=== PATIENT | male | born 1945 | race Caucasian/White ===

== ENCOUNTER → 2016-12-18 | Outpatient (CLI) | payer MEDICARE ==
--- NOTE | 2016-12-18 12:15 | NM ---
EXAMINATION TYPE: NM stress cardiolite complete DATE OF EXAM: 12/18/2016 11:27 AM COMPARISON: NONE HISTORY: Abnormal ECG. TECHNIQUE: After the intravenous administration of 10.5 mCi Tc 99m Sestamibi - Rest images obtained 45 minutes post injection. The patient exercised using a MARY protocol and 1 minute prior to peak exercise was injected with 27.3 mCi Tc 99m Sestamibi - Stress images obtained 10 minutes post injecti on. FINDINGS: There is left ventricular dilatation. There is reasonable uptake of radiopharmaceutical by the left ventricle. There is a fixed apical defect. There is no convincing inducible ischemic change. There is global hypokinesia and ejection fraction is only 33%. IMPRESSION: 1. LEFT VENTRICULAR DILATATION. 2. FIXED DEFECT IN THE APEX. 3. GLOBALLY DECREASED EJECTION FRACTION.
--- NOTE | 2016-12-18 12:17 | EST ---
DATE OF SERVICE: 12/18/2016 AGE: 71Y SEX: M HT: 66" WT: 204 lbs. Protocol Gildardo: X Other: Cardiolite Stage: I Dur. of Exercise: 4:20 *Heart Rate Blood Pressure *Rest: 76 Rest: 143/90 * *Max. Achieved: 128 Maximum BP: 165/85 85% PMHR: 127 100% PMHR: 149 *METS: 4.8 INDICATIONS: Chest pain. MEDICATIONS: Patient was exercised for a total period of 4 minutes and 20 seconds. Peak heart rate of 128 was achieved. Maximum blood pressure of 165/85 mmHg was noted. Resting EKG shows normal sinus rhythm with normal UT interval and QRS duration and normal ST-T waves. No ST segment depression suggestive of ischemia is noted. ( ) complained of any anginal pain during the test. FINAL IMPRESSION: 1. This exercise test is not suggestive of ischemia. 2. The patient's exercise tolerance is below average. 3. The results of the nuclear study will follow.
== END | disposition home or self-care (01) ==
LOC: RADNMMAIN 08:57
PROVIDERS: ATTEND Family Medicine
DX: I51.7 Cardiomegaly (principal); R94.31 Abnormal electrocardiogram [ECG] [EKG]
CPT/HCPCS: 93017; 78452; A9500

== ENCOUNTER → 2016-12-31 | Outpatient (CLI) | payer MEDICARE ==
[2016-12-31 11:27] LABS: CH 30.6; CHCM 34.1; HCT 42.6 % (39.0-53.0); HGB 14.5 gm/dL (13.0-17.5); MCH 30.7 pg (25.0-35.0); MCV 90.2 fL (80.0-100.0); Mean Platelet Volume 6.9; RBC 4.72 m/uL (4.30-5.90); RDW 12.3 % (11.5-15.5); WBC 5.8 k/uL (3.8-10.6)
[2016-12-31 11:53] LABS: Anion Gap 8 mmol/L; Blood Urea Nitrogen 20 mg/dL (9-20); Carbon Dioxide 28 mmol/L (22-30); Chloride 106 mmol/L (98-107); Non-African American GFR(MDRD) >60 (>60 ml/min/1.73 sqM); Potassium 4.7 mmol/L (3.5-5.1); Sodium 142 mmol/L (137-145)
== END ==
LOC: LABPAT 10:52
PROVIDERS: ATTEND Internal Medicine Interventional Cardiology
DX: I25.10 Atherosclerotic heart disease of native coronary artery without angina pectoris (principal)
CPT/HCPCS: 80051; 82565; 84520; 85027

== ENCOUNTER 2017-01-13 07:50 | Day surgery (SDC) | payer MEDICARE ==
[2017-01-08 16:12] VITALS: BMI 33.6
[~2017-01-13 07:50] MED LIST: ALPRAZolam 0.25 MG TAB PO PRN; ASPIRIN 325 MG TAB PO ONE; SODIUM CHLORIDE 0.9% 1,000 ML in EMPTY BAG 1 BAG IV ONE
[2017-01-13 08:07] VITALS: RESP 16; TEMP 98.1
[2017-01-13] MEDS ORDERED: SODIUM CHLORIDE 0.9% 1,000 ML IV ONE (08:12)
[2017-01-13] MEDS ORDERED: MIDAZOLAM 2 MG/2 ML VIAL IVP ONE (10:13)
[2017-01-13] MEDS ORDERED: LIDOCAINE 2% INJ 20 MG/ML SQ ONE ×2 (10:14)
[2017-01-13] MEDS: VERAPAMIL SYRINGE (5 MG/10 ML) INTRAARTER ONE ×2 (10:15→10:30)
[2017-01-13] MEDS ORDERED: IOHEXOL 350 MG/ML 125ML BOTTLE INJ ONE ×2 (10:31)
[2017-01-13] MEDS ORDERED: RX INFO: IV CONTRAST WAS GIVEN 1 EACH MISC MISCELLANE PRN (10:36)
[2017-01-13] MEDS ORDERED: SODIUM CHLORIDE 0.9% 1,000 ML IV SCH (10:45)
[2017-01-13 12:23] VITALS: PULSE 62
--- NOTE | 2017-01-13 12:49 | LTR ---
January 13, 2017 RE: Surya Byers Dear Manuel: Mr. Surya Byers underwent a heart catheterization which showed mild nonobstructive coronary artery disease with severely impaired LV function and ejection fraction of only 35%. I would maximize his medical treatment and repeat the echocardiogram to see if there is any improvement in the LV function down the line. Thank you for allowing me to participate in his care and please do not hesitate to call if you have any questions or concerns. Sincerely, QUETA CORDERO MD
--- NOTE | 2017-01-13 12:57 | CC ---
DATE OF SERVICE: 01/13/2017 PERFORMING PHYSICIAN: Gavin Jerome MD, rn relief charge. PROCEDURE PERFORMED: 1. Selective right and left coronary angiogram. 2. Left heart catheterization. 3. Left ventriculography. INDICATION: This is a pleasant 71-year-old male patient who was experiencing chest discomfort and underwent myocardial perfusion imaging. Stress test showed global ischemia with cardiomyopathy. He was brought today to undergo a heart catheterization. APPROACH: Right radial artery. COMPLICATIONS: None. LEVEL OF SEDATION: Moderate with a sedation length of about 30 minutes. PROCEDURE DESCRIPTION: After obtaining an informed consent, the patient was brought to the cardiac confectionery laboratory manager. The right radial artery was cannulated using micropuncture technique. The micropuncture wire passed easily, then I placed 6 [place] sheath in the right radial artery. Subsequently, I did selective right and left coronary angiogram using JR4 and JL3.5 catheters. After that, I did left heart catheterization and LV gram using a 6 [place] pigtail catheter. The procedure was completed without any complication. Please note that I gave the patient 2 mg of verapamil IA and 3000 heparin IV after I placed the sheath in the right radial artery. SELECTIVE CORONARY ANGIOGRAM: 1. The right coronary artery is a medium caliber vessel and it is a nondominant vessel. It is angiographically normal. 2. The left main is angiographically normal. It bifurcates into the left circumflex and left anterior descending artery. 3. The left circumflex is a large-caliber vessel and it is a dominant vessel. The proximal left circumflex is angiographically normal. The mid circumflex has disease in the range of 30% only. The left circumflex distally is normal and bifurcates into PDA and PLV branches; both are angiographically normal. 4. The left anterior descending artery, the proximal LAD appeared to have mild disease only. The mid LAD appeared to be angiographically normal as well and ( ) appeared to be angiographically normal. HEMODYNAMICS: The left ventricular end-diastolic pressure was 18 mmHg and no gradient was identified across the aortic valve. Left ventriculography was performed in the [place] projection and using a power injection. The left ventricular systolic function is impaired with an ejection fraction of 35% with global hypokinesia and dilated left ventricle. CONCLUSION: 1. Mild nonobstructive coronary artery disease. 2. Severe cardiomyopathy with an ejection fraction of 35%. Postprocedure management will be: 1. Maximize medical treatment. 2. Follow up with the patient.
[2017-01-13 15:40] VITALS: BP 129/75
== END 2017-01-13 16:00 | disposition home or self-care (01) ==
LOC: CATHCVL 07:50
PROVIDERS: ATTEND Internal Medicine Interventional Cardiology
DX: I25.110 Atherosclerotic heart disease of native coronary artery with unstable angina pectoris (principal); I42.9 Cardiomyopathy, unspecified; R94.39 Abnormal result of other cardiovascular function study; I10 Essential (primary) hypertension; Z87.891 Personal history of nicotine dependence; Z79.82 Long term (current) use of aspirin; Z79.899 Other long term (current) drug therapy
CPT/HCPCS: 99152; 93458; C1894; J2001; J2250; J1644; Q9967

== ENCOUNTER → 2017-06-15 | Outpatient (CLI) | payer MEDICARE ==
--- NOTE | 2017-06-15 09:57 | US ---
EXAMINATION TYPE: US abdomen complete DATE OF EXAM: 06/15/2017 COMPARISON: CT abdomen and pelvis November 16, 2014 CLINICAL HISTORY: R19.4change in bowel habit R10.84 Abdominal Pain. Intermittent abdomen pain and rea nge in bowel habits x couple weeks EXAM MEASUREMENTS: Liver Length: 14.7 cm Gallbladder Wall: 0.2 cm CBD: 0.4 cm Spleen: 10.0 cm Right Kidney: 9.7 x 4.9 x 5.4 cm Left Kidney: 12.0 x 5.2 x 5.6 cm Pancreas: visualized portions wnl, limited by overlying midline bowel gas Liver: somewhat heterogeneous, limited by rib shadowing Gallbladder: wnl Evidence for sonographic Woodard's sign: no CBD: wnl Spleen: visualized portions wnl, limited by rib shadowing and overlying bowel gas Right Kidney: no hydro or masses seen Left Kidney: no hydro or masses seen, appears larger than right kidney, 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 Evaluation for focal masses suboptimal due to the heterogen eity. The intrahepatic portion of the IVC and proximal abdominal aorta are within normal limits. Th ere is no evidence of cholelithiasis. Common bile duct is unremarkable. The visualized portions of the pancreas are homogenous. The spleen is unremarkable. Kidneys are symmetric and free of hydronep hrosis. No renal lesions are seen on images saved. There is some cortical thinning bilaterally felt present. IMPRESSION: Suboptimal study as detailed above. There is redemonstration of diffuse fatty infiltratio n of liver noted. No significant acute finding is seen to account for the patient's symptoms.
== END | disposition home or self-care (01) ==
LOC: RADUSWWP 07:56
PROVIDERS: ATTEND Family Medicine
DX: K76.0 Fatty (change of) liver, not elsewhere classified (principal); R19.4 Change in bowel habit
CPT/HCPCS: 76700

== ENCOUNTER 2017-11-13 15:16 | Emergency (ER) | payer MEDICARE ==
[2017-11-13 15:20] VITALS: BP 139/82; PULSE 75; RESP 20; TEMP 98.6
--- NOTE | 2017-11-13 16:52 | ED ---
General Adult HPI - General Chief complaint: Recheck/Abnormal Lab/Rx Stated complaint: poss hernia Time Seen by Provider: 11/13/17 16:34 Source: patient, family, RN notes reviewed Mode of arrival: ambulatory Limitations: no limitations - History of Present Illness Initial comments: Chief complaint and history of present illness a 72-year-old male here for complaint of a possible right inguinal hernia. Patient reports this morning when he got up and putting his belt on he felt a gaseous gurgly entity in the right inguinal canal. Throughout the day it went away. No pain. He does report in the last several days he did lift a heavy saw him put it in his son's truck but he can't remember hurting himself. He has had a umbilical hernia repaired in the past. - Related Data Home Medications Medication Instructions Recorded Confirmed Ascorbic Acid [Vitamin C] 1,000 mg PO DAILY 01/08/17 11/13/17 Aspirin [Adult Low Dose Aspirin EC] 81 mg PO DAILY 01/08/17 11/13/17 Calcium Carbonate [Calcium] 600 mg PO DAILY 01/08/17 11/13/17 Finasteride [Proscar] 5 mg PO DAILY 01/08/17 11/13/17 Levothyroxine Sodium [Synthroid] 150 mcg PO DAILY 01/08/17 11/13/17 Losartan [Cozaar] 25 mg PO DAILY 01/08/17 11/13/17 Multivitamins, Thera [Multivitamin 1 tab PO DAILY 01/08/17 11/13/17 (formulary)] Naproxen 500 mg PO DAILY 01/08/17 11/13/17 Omeprazole 20 mg PO DAILY 01/08/17 11/13/17 Timolol 0.5% Ophth Soln [Timoptic 1 drop RIGHT EYE DAILY 01/08/17 11/13/17 0.5% Ophth Soln] diphenhydrAMINE [Benadryl] 50 mg PO HS PRN 01/08/17 11/13/17 Metoprolol Tartrate [Lopressor] 12.5 mg PO BID 11/13/17 11/13/17 Spironolactone [Aldactone] 25 mg PO DAILY 11/13/17 11/13/17 Allergies Allergy/AdvReac Type Severity Reaction Status Date / Time No Known Allergies Allergy Verified 11/13/17 15:57 Review of Systems ROS Statement: Those systems with pertinent positive or pertinent negative responses have been documented in the HPI. Review of systems patient had no other complaints other than possible hernia which self reduced in the right inguinal region. Past medical problems significant GERD, hypertension, osteoarthritis, prostate disorder, thyroid disorder, kidney stone. Surgeries include umbilical hernia repair,. The patient's family history sister had breast cancer. Patient denies any ALLERGIES the patient quit smoking 40 years ago drinks alcohol rarely socially. No known ALLERGIES as noted above. ROS Other: All systems not noted in ROS Statement are negative. Past Medical History Past Medical History: GERD/Reflux, Hypertension, Osteoarthritis (OA), Prostate Disorder, Thyroid Disorder Additional Past Medical History / Comment(s): hx kidney stone History of Any Multi-Drug Resistant Organisms: None Reported Past Surgical History: Hernia Repair, Orthopedic Surgery Additional Past Surgical History / Comment(s): umbilical hernia repair, kidney stone lithotripsy, carpal tunnel rt wrist. rt cataract, orif rt leg Past Anesthesia/Blood Transfusion Reactions: No Reported Reaction Past Psychological History: No Psychological Hx Reported Smoking Status: Former smoker Past Alcohol Use History: None Reported Past Drug Use History: None Reported - Past Family History Mother Family Medical History: Cancer Brother(s) Family Medical History: Cancer General Exam - General Exam Comments Initial Comments: General: The patient is awake and alert, in no distress, and does not appear acutely ill. Here because of a possible right inguinal hernia. Vital signs shows temperature 98.6 pulse 75 respiratory rate 20 pulse ox 90% room air blood pressure 139/82 Eye: Pupils are equal, round and reactive to light, extra-ocular movements are intact ; there is normal conjunctiva bilaterally. No signs of icterus. Ears, nose, mouth and throat: There are moist mucous membranes and no oral lesions. Neck: Neck is supple no complaint of pain. Cardiovascular: There is a regular rate and rhythm. No murmur, rub or gallop is appreciated. Respiratory: Lungs are clear to auscultation no difficulty breathing. Gastrointestinal: Soft, non-distended, non-tender abdomen without masses or organomegaly noted. Examination of the right inguinal region with the patient coughing shows a hernia that protrudes and then reduces itself. No pain to palpation over the area. The hernia is not incarcerated or strangulated this time. We did discuss at length etiology of this hernia and what to do should it pops out again. He is to follow-up with family physician for reevaluation is needed. Or return emergency room if at comes out and is painful he can't reduce it as instructed. Limitations: no limitations Course Vital Signs 11/13/17 15:18 Temperature 98.6 F Pulse Rate 75 Respiratory 20 Rate Blood Pressure 139/82 O2 Sat by Pulse 98 Oximetry Medical Decision Making - Medical Decision Making Medical decision making; this is a 72-year-old male comes emergency room with what is a right inguinal hernia. Self reduced this morning on its own. The patient will follow-up with family physician. Advice given as to how to prevent it from coming out again and/or how to reduce it at home and if unable to reduce at home to come the emergency room. Disposition Clinical Impression: Reducible right inguinal hernia Disposition: HOME SELF-CARE Condition: Good Instructions: Inguinal Hernia (ED) Additional Instructions: Follow-up family physician. Apply pressure if the inguinal hernia comes out again. Follow advice given. If unable to reduce and is painful return emergency room. Referrals: Sixto Ascencio III, MD [Primary Care Provider] - 1-2 days Time of Disposition: 16:51
== END 2017-11-13 17:00 | disposition home or self-care (01) ==
LOC: EC 15:16
DX: K40.90 Unilateral inguinal hernia, without obstruction or gangrene, not specified as recurrent (principal); K21.9 Gastro-esophageal reflux disease without esophagitis; I10 Essential (primary) hypertension; M19.90 Unspecified osteoarthritis, unspecified site; N42.9 Disorder of prostate, unspecified; E07.9 Disorder of thyroid, unspecified; Z98.890 Other specified postprocedural states; Z87.891 Personal history of nicotine dependence; Z79.82 Long term (current) use of aspirin; Z79.1 Long term (current) use of non-steroidal anti-inflammatories (NSAID); Z79.899 Other long term (current) drug therapy
CPT/HCPCS: 99283

== ENCOUNTER 2017-12-01 17:30 | Emergency (ER) | payer MEDICARE ==
[2017-12-01 17:41] VITALS: RESP 18
[2017-12-01] MEDS ORDERED: HYDROcodone/APAP 10-325MG 1 EACH TAB PO ONE (18:16)
--- NOTE | 2017-12-01 18:21 | ED ---
Male Urogenital HPI - General Chief complaint: Urogenital Stated complaint: Groin pain Time Seen by Provider: 12/01/17 18:01 Source: patient Mode of arrival: ambulatory Limitations: no limitations - History of Present Illness Initial comments: 72-year-old male patient presents to the emergency department today for complaints of scrotal swelling. Patient states he did undergo a right inguinal hernia repair yesterday with Dr. Espinoza. States and he woke this morning he noticed that his scrotum was swollen. He states it is uncomfortable but does not report pain to the area. States that this morning he did seem to have difficulty starting and stopping his stream of urine however this seems to have resolved and he is now urinating without difficulty. Patient denies any hematuria, dysuria, urinary frequency, urinary urgency. States that he is having pain to his surgical site. He is taking norco which he states does not seem to help much. He is eating and drinking without difficulty. Denies any constipation or diarrhea. Patient denies any recent rash, fever, chills, shortness breath, chest pain, back pain, numbness, tingling, dizziness, weakness , headache, visual changes, or any other complaints. - Related Data Home Medications Medication Instructions Recorded Confirmed Ascorbic Acid [Vitamin C] 1,000 mg PO DAILY 01/08/17 12/01/17 Aspirin [Adult Low Dose Aspirin EC] 81 mg PO DAILY 01/08/17 12/01/17 Calcium Carbonate [Calcium] 600 mg PO DAILY 01/08/17 12/01/17 Finasteride [Proscar] 5 mg PO DAILY 01/08/17 12/01/17 Levothyroxine Sodium [Synthroid] 150 mcg PO DAILY 01/08/17 12/01/17 Losartan [Cozaar] 25 mg PO DAILY 01/08/17 12/01/17 Multivitamins, Thera [Multivitamin 1 tab PO DAILY 01/08/17 12/01/17 (formulary)] Naproxen 500 mg PO DAILY 01/08/17 12/01/17 Omeprazole 20 mg PO DAILY 01/08/17 12/01/17 Timolol 0.5% Ophth Soln [Timoptic 1 drop RIGHT EYE DAILY 01/08/17 12/01/17 0.5% Ophth Soln] diphenhydrAMINE [Benadryl] 50 mg PO HS PRN 01/08/17 12/01/17 Metoprolol Tartrate [Lopressor] 12.5 mg PO BID 11/13/17 12/01/17 Spironolactone [Aldactone] 25 mg PO DAILY 11/13/17 12/01/17 Gabapentin [Neurontin] 300 mg PO BID 12/01/17 12/01/17 HYDROcodone/APAP 5-325MG [[place] 2 tab PO Q4HR PRN 12/01/17 12/01/17 5-325] Previous Rx's Medication Instructions Recorded HYDROcodone/APAP 7.5-325MG [[place] 1 - 2 tab PO Q6HR PRN #12 tab 12/01/17 7.5-325] Allergies Allergy/AdvReac Type Severity Reaction Status Date / Time No Known Allergies Allergy Verified 12/01/17 18:00 Review of Systems ROS Statement: Those systems with pertinent positive or pertinent negative responses have been documented in the HPI. ROS Other: All systems not noted in ROS Statement are negative. Past Medical History Past Medical History: GERD/Reflux, Hypertension, Osteoarthritis (OA), Prostate Disorder, Thyroid Disorder Additional Past Medical History / Comment(s): hx kidney stone History of Any Multi-Drug Resistant Organisms: None Reported Past Surgical History: Hernia Repair, Orthopedic Surgery Additional Past Surgical History / Comment(s): umbilical hernia repair, kidney stone lithotripsy, carpal tunnel rt wrist. rt cataract, orif rt leg Past Anesthesia/Blood Transfusion Reactions: No Reported Reaction Past Psychological History: No Psychological Hx Reported Smoking Status: Former smoker Past Alcohol Use History: None Reported Past Drug Use History: None Reported - Past Family History Mother Family Medical History: Cancer Brother(s) Family Medical History: Cancer General Exam Limitations: no limitations General appearance: alert, in no apparent distress, other (This is a well- developed, well-nourished adult male patient in no acute distress. Vital signs upon presentation are temperature 98.4F, pulse 98, respirations 18, blood pressure 125/73, pulse ox 97% on room air.) Eye exam: Present: normal appearance, PERRL, EOMI. Absent: scleral icterus, conjunctival injection, periorbital swelling ENT exam: Present: normal exam, normal oropharynx, mucous membranes moist Respiratory exam: Present: normal lung sounds bilaterally. Absent: respiratory distress, wheezes, rales, rhonchi, stridor Cardiovascular Exam: Present: regular rate, normal rhythm, normal heart sounds. Absent: systolic murmur, diastolic murmur, rubs, gallop, clicks GI/Abdominal exam: Present: soft, tenderness (Tenderness surrounding the surgical site to the right inguinal region), normal bowel sounds. Absent: distended, guarding, rebound, rigid exam: Present: scrotal swelling, other (There is purplish scrotal discoloration surrounding the entirety of the scrotum and just above the penis.) . Absent: normal inspection, testicular tenderness Neurological exam: Present: alert, oriented X3, CN II-XII intact Psychiatric exam: Present: normal affect, normal mood Skin exam: Present: warm, dry, intact, normal color. Absent: rash Course Vital Signs 12/01/17 17:39 Temperature 98.4 F Pulse Rate 98 Respiratory 18 Rate Blood Pressure 125/73 O2 Sat by Pulse 97 Oximetry Medical Decision Making - Medical Decision Making 72-year-old male patient presented to the emergency department today for evaluation of scrotal swelling. Physical examination did reveal bilateral scrotal swelling with ecchymosis noted over the entire scrotum. Urinalysis was obtained and showed no acute process. Ultrasound was obtained and did show bilateral mild hydrocele and right varicocele. Did discuss findings with the patient. Did instruct him to follow up with urology as soon as possible. He is also complaining that his pain medication prescribed after surgery does not seem strong enough. We will give prescription for NOrco 7.5, he is instructed to take 1-2 depending on pain severity. He is instructed to call his surgeon or return here for any further needs. He is instructed to return here immediately for any new, worsening, or concerning symptoms. He verbalizes understanding and agrees with this plan. - Lab Data Lab Results 12/01/17 Range/Units 19:49 Urine Color Colorless Urine Appearance Clear (Clear) Urine pH 5.5 (5.0-8.0) Ur Specific [place] 1.003 (1.001-1.035) Urine Protein Negative (Negative) Urine Glucose (UA) Negative (Negative) Urine Ketones Negative (Negative) Urine Blood Negative (Negative) Urine Nitrite Negative (Negative) Urine Bilirubin Negative (Negative) Urine Urobilinogen <2.0 (<2.0) mg/dL Ur Leukocyte Esterase Negative (Negative) - Radiology Data Radiology results: report reviewed, image reviewed Ultrasound of the scrotum was obtained. Report was reviewed in its entirety. Impression by Dr. Acharya shows no testicular torsion or mass. Mild bilateral hydroceles. Bilateral scrotal skin thickening. Right varicocele. So left epididymal cyst measuring 0.3 x 0.5 cm. Disposition Clinical Impression: Varicocele, Hydrocele, bilateral Disposition: HOME SELF-CARE Condition: Good Instructions: Hydrocele (ED), Varicocele (ED) Additional Instructions: Take medications as directed. Follow-up with urology as soon as possible. Return here immediately for any new, worsening, or concerning symptoms. Prescriptions: HYDROcodone/APAP 7.5-325MG [[place] 7.5-325] 1 - 2 tab PO Q6HR PRN #12 tab PRN Reason: Pain Referrals: Sixto Ascencio III, MD [Primary Care Provider] - 1-2 days Roberto Ramon MD [STAFF PHYSICIAN] - 1-2 days Time of Disposition: 20:39
--- NOTE | 2017-12-01 19:28 | US ---
EXAMINATION TYPE: US scrotum with doppler. Grayscale and color Doppler Duplex imaging performed of t felicitas scrotum. DATE OF EXAM: 12/01/2017 COMPARISON: NONE CLINICAL HISTORY: Swelling/Pain. Edema right hernia surgery done 11/30/2017. EXAM MEASUREMENTS: TESTICLES: Right Testicle: 3.7 x 2.6 x 2.8 cm Left Testicle: 3.7 x 2.9 x 2.2 cm EPIDIDYMIS HEAD: Right Epididymis: 08 x 09 x 1.4cm Left Epididymis: 08 x 1.1 x 1.0 cm Doppler performed to assess for testicular vascularity; good bilateral color flow and waveforms are s een. There is no evidence of testicular torsion. Presence of hydroceles: Yes bilaterally. Presence of varicoceles: Yes right side. Bilateral hydroceles seen. Right varicocele. Left epididymal cyst measuring .3 x .5cm. Appears to be scrotal skin thickening right 1.8 cm and left 1.4cm. IMPRESSION: No testicular torsion or mass. Mild bilateral hydroceles. Bilateral scrotal skin thickeni ng.
[2017-12-01 20:31] LABS: Appearance,Urine Clear (Clear); Bilirubin,Urine Negative (Negative); Blood,Urine Negative (Negative); Color,Urine Colorless; Glucose,Urine (UA) Negative (Negative); Ketones,Urine Negative (Negative); Leukocyte Esterase,Urine Negative (Negative); Nitrite,Urine Negative (Negative); PH, Urine 5.5 (5.0-8.0); Protein,Urine Negative (Negative); Specific Gravity,Urine 1.003 (1.001-1.035); Urobilinogen,Urine <2.0 mg/dL (<2.0)
[2017-12-01 21:00] VITALS: BP 129/66; PULSE 89; TEMP 97.6
== END 2017-12-01 21:00 | disposition home or self-care (01) ==
LOC: EC 17:30
DX: N43.3 Hydrocele, unspecified (principal); I86.1 Scrotal varices; K21.9 Gastro-esophageal reflux disease without esophagitis; I10 Essential (primary) hypertension; E07.9 Disorder of thyroid, unspecified; N40.0 Benign prostatic hyperplasia without lower urinary tract symptoms; Z87.891 Personal history of nicotine dependence; Z98.890 Other specified postprocedural states; Z79.82 Long term (current) use of aspirin; Z79.899 Other long term (current) drug therapy
CPT/HCPCS: 76870; 81003; 93975; 99284

== ENCOUNTER → 2018-08-02 | Outpatient (CLI) | payer MEDICARE ==
--- NOTE | 2018-08-02 17:01 | US ---
EXAMINATION TYPE: US abdomen limited DATE OF EXAM: 08/02/2018 COMPARISON: NONE CLINICAL HISTORY: R10.9 ABD PAIN. last year pt had right inguinal hernia repair, new onset of pain at site, no known trauma/injury Scanned at the patient's area of concern. Strong shadowing seen probably related to post surgical ch anges. Just medial to this shadowing area peristalsing bowel is seen moving anterior to the abd wall. There is about a 1.2cm break in the abd wall seen. IMPRESSION: 1. Anterior abdominal wall diastases may be present. There is some posterior shadowing at site of the hernia repair. Adjacent is some bowel loops at the peritoneal level. Consider CT abdomen follow-up t o evaluate anterior abdominal wall hernia.
== END | disposition home or self-care (01) ==
LOC: RADUSWWP 06:51
PROVIDERS: ATTEND Family Medicine
DX: M62.08 Separation of muscle (nontraumatic), other site (principal); R10.9 Unspecified abdominal pain; Z98.890 Other specified postprocedural states
CPT/HCPCS: 76705

== ENCOUNTER → 2018-08-11 | Outpatient (CLI) | payer MEDICARE ==
[2018-08-11 14:31] LABS: Blood Urea Nitrogen 20 mg/dL (9-20)
--- NOTE | 2018-08-11 16:59 | CT ---
EXAMINATION TYPE: CT abdomen pelvis w con DATE OF EXAM: 08/11/2018 COMPARISON: Prior CT abdomen pelvis dated 11/16/2014, limited abdomen ultrasound 08/02/2018 HISTORY: Right lower quadrant abdominal pain x6 weeks. CT DLP: 1510.4 mGycm Automated exposure control for dose reduction was used. TECHNIQUE: Helical acquisition of images from the lung bases through the pelvis have been completed. CONTRAST: Performed with Oral Contrast and with IV Contrast, patient injected with 100ml mL of Isovue M300. FINDINGS: There is no evident recurrent inguinal hernia. Some minimal thickening of the soft tissues in the right groin may be due to postop change. LUNG BASES: No significant abnormality is appreciated. AORTA: No significant abnormality is appreciated. LIVER/GB: No significant abnormality is appreciated. PANCREAS: No significant abnormality is seen. SPLEEN: No significant abnormality is seen. ADRENALS: No significant abnormality is seen. 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 REPRODUCTIVE ORGANS: No significant abnormality is seen BOWEL: Diverticular changes associated with the descending colon.. FREE AIR: No Free Air visible. ASCITES: None visible. PELVIC ADENOPATHY: None visualized. RETROPERITONEAL ADENOPATHY: No Retroperitoneal Adenopathy visible. URINARY BLADDER: No significant abnormality is seen. OSSEOUS STRUCTURES: Stable, degenerative disc changes are noted in the lumbar spine with facet arthr opathy. IMPRESSION: INTERVAL REPAIR OF PATIENT'S RIGHT INGUINAL HERNIA. NO OTHER SIGNIFICANT INTERVAL CHANGE.
== END | disposition home or self-care (01) ==
LOC: RADCTMAIN 13:45
PROVIDERS: ATTEND Surgery
DX: R10.31 Right lower quadrant pain (principal); Z98.890 Other specified postprocedural states
CPT/HCPCS: 82565; 84520; 74177; 36415; Q9967

== ENCOUNTER 2018-09-18 12:22 | Emergency (ER) | payer MEDICARE ==
[2018-09-18 12:35] VITALS: TEMP 98.4
[2018-09-18] MEDS ORDERED: SODIUM CHLORIDE 0.9% 500 ML 500 ML IV STA (12:41)
--- NOTE | 2018-09-18 12:45 | ED ---
General Adult HPI - General Chief complaint: Abdominal Pain Stated complaint: ABDOMINAL PAIN, DIARRHEA Time Seen by Provider: 09/18/18 12:25 Source: patient, RN notes reviewed Mode of arrival: ambulatory Limitations: no limitations - History of Present Illness Initial comments: This a 73-year-old male presents emergency Department complaining of some right upper quadrant abdominal tenderness over the last few days. Patient states the pain is crampy in nature and lasts about 10-15 seconds and then dissipates. Patient states it continues to recur over the last couple of days but today he has an underlying dull ache then on top of that has the crampy tenderness or tenderness 15 seconds. Patient states been eating and drinking fine. Patient states there's been no nausea vomiting or diarrhea. Patient states he took Pepto-Bismol didn't seem to help. Patient denies any chest pain difficulty breathing shortness of breath or palpitations. - Related Data Home Medications Medication Instructions Recorded Confirmed Ascorbic Acid [Vitamin C] 1,000 mg PO DAILY 01/08/17 09/18/18 Aspirin [Adult Low Dose Aspirin EC] 81 mg PO DAILY 01/08/17 09/18/18 Calcium Carbonate [Calcium] 600 mg PO DAILY 01/08/17 09/18/18 Finasteride [Proscar] 5 mg PO DAILY 01/08/17 09/18/18 Levothyroxine Sodium [Synthroid] 150 mcg PO MOTUWETHFR 01/08/17 09/18/18 Losartan [Cozaar] 25 mg PO DAILY 01/08/17 09/18/18 Multivitamins, Thera [Multivitamin 1 tab PO DAILY 01/08/17 09/18/18 (formulary)] Naproxen 500 mg PO DAILY 01/08/17 09/18/18 Omeprazole 20 mg PO DAILY 01/08/17 09/18/18 Timolol 0.5% Ophth Soln [Timoptic 1 drop BOTH EYES DAILY 01/08/17 09/18/18 0.5% Ophth Soln] Metoprolol Tartrate [Lopressor] 12.5 mg PO BID 11/13/17 09/18/18 Atorvastatin [Lipitor] 10 mg PO HS 09/18/18 09/18/18 Levothyroxine Sodium [Synthroid] 300 mcg PO SUSA 09/18/18 09/18/18 oxyCODONE HCL/ACETAMINOPHEN 1 tab PO BID 09/18/18 09/18/18 [Percocet 5-325 mg] Allergies Allergy/AdvReac Type Severity Reaction Status Date / Time No Known Allergies Allergy Verified 09/18/18 12:55 Review of Systems ROS Statement: Those systems with pertinent positive or pertinent negative responses have been documented in the HPI. ROS Other: All systems not noted in ROS Statement are negative. Past Medical History Past Medical History: GERD/Reflux, Hypertension, Osteoarthritis (OA), Prostate Disorder, Thyroid Disorder Additional Past Medical History / Comment(s): hx kidney stone History of Any Multi-Drug Resistant Organisms: None Reported Past Surgical History: Hernia Repair, Orthopedic Surgery Additional Past Surgical History / Comment(s): umbilical hernia repair, kidney stone lithotripsy, carpal tunnel rt wrist. rt cataract, orif rt leg Past Anesthesia/Blood Transfusion Reactions: No Reported Reaction Past Psychological History: No Psychological Hx Reported Smoking Status: Former smoker Past Alcohol Use History: None Reported Past Drug Use History: None Reported - Past Family History Mother Family Medical History: Cancer Brother(s) Family Medical History: Cancer General Exam - General Exam Comments Initial Comments: GENERAL: Patient is well-developed and well-nourished. Patient is nontoxic and well- hydrated and is in mild distress. ENT: Neck is soft and supple. No significant lymphadenopathy is noted. Oropharynx is clear. Moist mucous membranes. Neck has full range of motion without eliciting any pain. EYES: The sclera were anicteric and conjunctiva were pink and moist. Extraocular movements were intact and pupils were equal round and reactive to light. Eyelids were unremarkable. PULMONARY: Unlabored respirations. Good breath sounds bilaterally. No audible rales rhonchi or wheezing was noted. CARDIOVASCULAR: There is a regular rate and rhythm without any murmurs gallops or rubs. ABDOMEN: Right upper quadrant tenderness mild. No palpable organomegaly was noted. There is no palpable pulsatile mass. SKIN: Skin is clear with no lesions or rashes and otherwise unremarkable. NEUROLOGIC: Patient is alert and oriented x3. Cranial nerves II through XII are grossly intact. Motor and sensory are also intact. Normal speech, volume and content. Symmetrical smile. MUSCULOSKELETAL: Normal extremities with adequate strength and full range of motion. No lower extremity swelling or edema. No calf tenderness. LYMPHATICS: No significant lymphadenopathy is noted PSYCHIATRIC: Normal psychiatric evaluation. Limitations: no limitations Course Vital Signs 09/18/18 09/18/18 12:32 15:41 Temperature 98.4 F Pulse Rate 82 95 Respiratory 18 16 Rate Blood Pressure 133/86 117/62 O2 Sat by Pulse 99 96 Oximetry Medical Decision Making - Medical Decision Making CT shows no acute abnormality. Ultrasound showed no acute abnormality. KUB showed no acute normalities. I went back into the room to see the patient and every time I have the patient has not had any significant pain but he states occasionally the pain comes for 10 seconds or so and dissipates. EKG shows sinus rhythm at 66 bpm VA interval is 242 QRS is under QT intervals 422 QTC is 442. Patient's EKG shows no ST segment elevation or depression or T wave abnormalities are noted. I will back into reevaluate the patient just before discharge. He was not in any distress at this time and he stated he would follow-up with primary medical care doctor. - Lab Data Result diagrams: 09/18/18 13:04 09/18/18 13:04 Lab Results 09/18/18 09/18/18 09/18/18 Range/Units 13:04 13:04 14:02 WBC 9.3 (3.8-10.6) k/uL RBC 4.53 (4.30-5.90) m/uL Hgb 13.9 (13.0-17.5) gm/dL Hct 40.6 (39.0-53.0) % MCV 89.7 (80.0-100.0) fL MCH 30.7 (25.0-35.0) pg MCHC 34.3 (31.0-37.0) g/dL RDW 15.1 (11.5-15.5) % Plt Count 243 (150-450) k/uL Neutrophils % 73 % Lymphocytes % 13 % Monocytes % 7 % Eosinophils % 4 % Basophils % 1 % Neutrophils # 6.8 (1.3-7.7) k/uL Lymphocytes # 1.2 (1.0-4.8) k/uL Monocytes # 0.6 (0-1.0) k/uL Eosinophils # 0.4 (0-0.7) k/uL Basophils # 0.1 (0-0.2) k/uL Sodium 139 (137-145) mmol/L Potassium 4.9 (3.5-5.1) mmol/L Chloride 104 (98-107) mmol/L Carbon Dioxide 27 (22-30) mmol/L Anion Gap 8 mmol/L BUN 23 H (9-20) mg/dL Creatinine 0.91 (0.66-1.25) mg/dL Est GFR (CKD-EPI)AfAm >90 (>60 ml/min/1.73 sqM) Est GFR (CKD-EPI)NonAf 83 (>60 ml/min/1.73 sqM) Glucose 112 H (74-99) mg/dL Calcium 9.4 (8.4-10.2) mg/dL Total Bilirubin 1.1 (0.2-1.3) mg/dL AST 22 (17-59) U/L ALT 34 (21-72) U/L Alkaline Phosphatase 61 (38-126) U/L Total Protein 6.8 (6.3-8.2) g/dL Albumin 4.0 (3.5-5.0) g/dL Amylase 35 (30-110) U/L Lipase 40 (23-300) U/L Urine Color Yellow Urine Appearance Clear (Clear) Urine pH 5.5 (5.0-8.0) Ur Specific [place] 1.014 (1.001-1.035) Urine Protein Negative (Negative) Urine Glucose (UA) Negative (Negative) Urine Ketones Negative (Negative) Urine Blood Negative (Negative) Urine Nitrite Negative (Negative) Urine Bilirubin Negative (Negative) Urine Urobilinogen <2.0 (<2.0) mg/dL Ur Leukocyte Esterase Negative (Negative) Disposition Clinical Impression: Abdominal pain Disposition: HOME SELF-CARE Instructions: Abdominal Pain (ED) Is patient prescribed a controlled substance at d/c from ED?: No Referrals: Sixto Ascencio III, MD [Primary Care Provider] - 1-2 days Time of Disposition: 16:34
[2018-09-18 13:18] LABS: Basophils # (A) 0.1 k/uL (0-0.2); Basophils % (A) 1 %; Eosinophils # (A) 0.4 k/uL (0-0.7); Eosinophils % (A) 4 %; HCT 40.6 % (39.0-53.0); HGB 13.9 gm/dL (13.0-17.5); Lymphocytes # (A) 1.2 k/uL (1.0-4.8); Lymphocytes % (A) 13 %; MCH 30.7 pg (25.0-35.0); MCHC 34.3 g/dL (31.0-37.0); MCV 89.7 fL (80.0-100.0); Mean Platelet Volume 8.7; Monocytes # (A) 0.6 k/uL (0-1.0); Monocytes % (A) 7 %; Neutrophils # (A) 6.8 k/uL (1.3-7.7); Neutrophils % (A) 73 %; Platelet Count 243 k/uL (150-450); RBC 4.53 m/uL (4.30-5.90); RDW 15.1 % (11.5-15.5); WBC 9.3 k/uL (3.8-10.6)
[2018-09-18 13:27] LABS: ALT 34 U/L (21-72); AST 22 U/L (17-59); Alkaline Phosphatase 61 U/L (38-126); Amylase 35 U/L (30-110); Anion Gap 8 mmol/L; Blood Urea Nitrogen 23 mg/dL (9-20); Calcium 9.4 mg/dL (8.4-10.2); Carbon Dioxide 27 mmol/L (22-30); Chloride 104 mmol/L (98-107); Glucose 112 mg/dL (74-99); Lipase 40 U/L (23-300); Potassium 4.9 mmol/L (3.5-5.1); Sodium 139 mmol/L (137-145); Total Bilirubin 1.1 mg/dL (0.2-1.3); Total Protein 6.8 g/dL (6.3-8.2)
--- NOTE | 2018-09-18 13:37 | US ---
EXAMINATION TYPE: US gallbladder DATE OF EXAM: 09/18/2018 COMPARISON: Previous study dated 08/02/2018. CLINICAL HISTORY: Pain. Epigastric pain and nausea for 2 days EXAM MEASUREMENTS: Liver Length: 13.9 cm Gallbladder Wall: 0.3 cm CBD: 0.5 cm Right Kidney: 10.8 x 4.4 x 4.3 cm Pancreas: Tail obscured by overlying bowel gas Liver: slightly heterogeneous Gallbladder: no evidence of stones Evidence for sonographic Woodard's sign: no CBD: wnl Right Kidney: no evidence of hydronephrosis or mass Limited views of the pancreas are unremarkable. The liver is normal in size without biliary dilatation. The gallbladder is unremarkable without evidence of cholelithiasis. Gallbladder wall measures 3 mm. T he distal common hepatic duct measures 5 mm. There is no sonographic Woodard's sign. The right kidney is unremarkable. IMPRESSION: NORMAL RIGHT QUADRANT ULTRASOUND.
[2018-09-18 14:12] LABS: Appearance,Urine Clear (Clear); Bilirubin,Urine Negative (Negative); Blood,Urine Negative (Negative); Color,Urine Yellow; Glucose,Urine (UA) Negative (Negative); Ketones,Urine Negative (Negative); Leukocyte Esterase,Urine Negative (Negative); Nitrite,Urine Negative (Negative); PH, Urine 5.5 (5.0-8.0); Protein,Urine Negative (Negative); Specific Gravity,Urine 1.014 (1.001-1.035); Urobilinogen,Urine <2.0 mg/dL (<2.0)
--- NOTE | 2018-09-18 15:22 | XR ---
EXAMINATION TYPE: XR KUB DATE OF EXAM: 09/18/2018 3:01 PM CLINICAL HISTORY: Abdominal plain TECHNIQUE: Single supine KUB image of the abdomen is obtained. COMPARISON: None. FINDINGS: No evidence of pneumoperitoneum or dilated loops of large or small bowel. No abnormal intra -abdominal or pelvic calcifications. Multilevel degenerative changes throughout the spine. No evidenc e of acute osseous pathology. Enthesophytes are noted of the bilateral honorio. Limited evaluation of th e lower thorax is unremarkable. IMPRESSION: 1. No evidence of obstruction or pneumoperitoneum.
[2018-09-18 15:42] VITALS: RESP 16
--- NOTE | 2018-09-18 16:26 | CT ---
EXAMINATION TYPE: CT abdomen pelvis w con DATE OF EXAM: 09/18/2018 COMPARISON: HISTORY: Abdominal pain and diarrhea CT DLP: 1125.4 mGycm Automated exposure control for dose reduction was used. TECHNIQUE: Helical acquisition of images was performed from the lung bases through the pelvis. CONTRAST: Performed without Oral Contrast and with IV Contrast, patient injected with 100 mL of Isovue 300. FINDINGS: LUNG BASES: No significant abnormality is appreciated. LIVER/GB: No significant abnormality is appreciated. PANCREAS: No significant abnormality is seen. SPLEEN: No significant abnormality is seen. ADRENALS: No significant abnormality is seen. KIDNEYS: No significant abnormality is seen. Duplicated left ureter. The kidneys enhance homogenously . FREE AIR: No free air is visualized. RETROPERITONEAL ADENOPATHY: None visualized REPRODUCTIVE ORGANS: No significant abnormality is seen URINARY BLADDER: No significant abnormality is seen. PELVIC ADENOPATHY: None visualized. OSSEOUS STRUCTURES: No significant abnormality is seen. BOWEL: No significant abnormality is seen. Normal appendix. Diverticulosis without evidence of diver ticulitis. OTHER: Calcification of the abdominal aorta and its branches. IMPRESSION: NO ACUTE INTRA-ABDOMINAL OR PELVIC PROCESS.
[2018-09-18 16:56] VITALS: BP 119/88; PULSE 75
== END 2018-09-18 16:53 | disposition home or self-care (01) ==
LOC: EC 12:22
DX: R10.9 Unspecified abdominal pain (principal); R19.7 Diarrhea, unspecified; K21.9 Gastro-esophageal reflux disease without esophagitis; I10 Essential (primary) hypertension; M19.90 Unspecified osteoarthritis, unspecified site; E07.9 Disorder of thyroid, unspecified; N42.9 Disorder of prostate, unspecified; Z87.19 Personal history of other diseases of the digestive system; Z87.442 Personal history of urinary calculi; Z98.890 Other specified postprocedural states; Z87.891 Personal history of nicotine dependence; Z79.82 Long term (current) use of aspirin; Z79.890 Hormone replacement therapy; Z79.1 Long term (current) use of non-steroidal anti-inflammatories (NSAID); Z79.899 Other long term (current) drug therapy; Z79.891 Long term (current) use of opiate analgesic
CPT/HCPCS: 99284; 36415; 93005; 80053; 82150; 83690; 85025; 81003; 74018; 76705; 74177; Q9967

== ENCOUNTER → 2018-09-27 | Outpatient (CLI) | payer MEDICARE ==
--- NOTE | 2018-09-27 19:28 | NM ---
EXAMINATION TYPE: NM hepatobiliary w EF DATE OF EXAM: 09/27/2018 COMPARISON: CT abdomen pelvis and gallbladder ultrasound 09/18/2018 HISTORY: Right upper quadrant pain TECHNIQUE: After the intravenous administration of 4.32 mCi Tc 99m Mebrofenin hepatobiliary scintigra phy is performed. Immediate images post injection. FINDINGS: There is satisfactory initial accumulation of tracer by the liver. The gallbladder is visualized wit hin 8 minutes. The small bowel activity is noted within 26 minutes. At one hour 8 ounces of oral en sure plus is given to mimic CCK and gallbladder ejection fraction is calculated at 89 %, above the up per end of normal. Therefore there is no scintigraphic evidence of cystic or common bile duct obstru ction to suggest acute cholecystitis or gallbladder dyskinesia. IMPRESSION: Gallbladder may be hyperdynamic
== END ==
LOC: RADNMMAIN 14:39
PROVIDERS: ATTEND Family Medicine
DX: R10.11 Right upper quadrant pain (principal)
CPT/HCPCS: 78226; A9537

== ENCOUNTER → 2020-10-15 | Outpatient (CLI) | payer MEDICARE | END | disposition home or self-care (01) | LOC: LABWHC1 13:00 | PROVIDERS: ATTEND Family Medicine | DX: J20.8 Acute bronchitis due to other specified organisms (principal) | CPT/HCPCS: U0003; C9803; U0005 ==

== ENCOUNTER → 2020-11-08 | Outpatient (CLI) | payer MEDICARE ==
--- NOTE | 2020-11-08 13:12 | USB ---
Reason for exam: clinical finding. Indicated problem(s): lump or thickening in the left breast. US Breast LT Technologist: Melissa Lucio Left complete breast ultrasound includes all four quadrants, the retroareolar region and axilla. Finding demonstrates no cystic or solid lesion seen. These results were verbally communicated with the patient and result sheet given to the patient on 11/08/20. ASSESSMENT: Negative, BI-RAD 1 RECOMMENDATION: Clinical management of both breasts. Manage patient on a clinical basis.
--- NOTE | 2020-11-08 13:12 | MM ---
Reason for exam: clinical finding. Indicated problem(s): lump or thickening in the left breast. Physical Findings: Nurse Summary: 3.5cm nodule in the left retroareolar breast (nurse db). MG 3D Diag Mammo W/Cad ELVIN Bilateral CC and MLO view(s) were taken. The breast tissue is heterogeneously dense. This may lower the sensitivity of mammography. These results were verbally communicated with the patient and result sheet given to the patient on 11/08/20. ASSESSMENT: Benign, BI-RAD 2 RECOMMENDATION: Clinical management of both breasts. Manage patient on a clinical basis.
== END ==
LOC: RADMAMWWP 07:49
PROVIDERS: ATTEND Family Medicine
DX: R92.2 Inconclusive mammogram (principal)
CPT/HCPCS: 77066; 76641; G0279; 77062

== ENCOUNTER 2021-01-20 07:22 | Day surgery (SDC) | payer MEDICARE ==
[2021-01-15 11:48] VITALS: BMI 36.3
[~2021-01-20 07:22] MED LIST changes: +ALPRAZolam 0.5 MG TAB PO PRN; +ATORVASTATIN 80 MG TAB PO ONE; +HEPARIN SODIUM,PORCINE 10,000 UNIT in SODIUM CHLORIDE 0.9% 1,000 ML IRRIGATION PRN; +HEPARIN SODIUM,PORCINE 2,500 UNIT in SODIUM CHLORIDE 0.9% 250 ML IRRIGATION PRN; +NITROGLYCERIN SL TABS 0.4 MG TAB SUBLINGUAL PRN
[2021-01-20] MEDS ORDERED: SODIUM CHLORIDE 0.9% 1,000 ML IV ONE (07:39)
[2021-01-20 08:12] VITALS: RESP 16; TEMP 99
[2021-01-20] MEDS ORDERED: LIDOCAINE 1% INJ 10MG/ML (20 ML MDV) ONE (08:36)
[2021-01-20] MEDS ORDERED: VERAPAMIL 2.5 MG/ML 2 ML AMP ONE (08:36)
[2021-01-20] MEDS ORDERED: LIDOCAINE 1% INJ 10MG/ML (20 ML MDV) SQ ONE (09:35)
[2021-01-20] MEDS ORDERED: MIDAZOLAM 2 MG/2 ML VIAL IV ONE ×2 (09:35→09:54)
[2021-01-20] MEDS: fentaNYL (PF) 50 MCG/ML 2 ML AMP IV ONE ×2 (09:35→09:55)
[2021-01-20] MEDS ORDERED: fentaNYL (PF) 50 MCG/ML 2 ML AMP ONE (09:36)
[2021-01-20] MEDS ORDERED: IOPAMIDOL-370 125ML BTL INJ ONE (10:05)
[2021-01-20] MEDS ORDERED: RX INFO: IV CONTRAST WAS GIVEN 1 EACH MISC MISCELLANE PRN (10:17)
[2021-01-20] MEDS ORDERED: SODIUM CHLORIDE 0.9% 1,000 ML IV SCH (10:30)
[2021-01-20] MEDS ORDERED: ACETAMINOPHEN TAB 325 MG TAB ONE (14:48)
--- NOTE | 2021-01-20 16:58 | CC ---
CARDIAC CATHETERIZATION REPORT DATE OF SURGERY: 01/20/2021 PERFORMING PHYSICIAN: Gavin Jerome M.D. PROCEDURES PERFORMED: 1. Selective right and left coronary angiogram. 2. Left heart catheterization. 3. Selective right common femoral artery angiogram. INDICATION: This is a 75-year-old gentleman with hypertension and dyslipidemia who was experiencing symptoms of shortness of breath. He underwent recently a myocardial perfusion imaging stress test and that revealed an anterior ischemia. Because of that, heart catheterization was performed. APPROACH: Right common femoral artery. COMPLICATIONS: None. LEVEL OF SEDATION: Moderate, with sedation length of 34 minutes. PROCEDURE DESCRIPTION: After obtaining informed consent, the patient was brought to the cardiac component lab tech. The right common femoral artery was cannulated using micropuncture technique. The micropuncture wire passed easily. Then I placed a 6-Stateless sheath. I did selective right and left coronary angiogram with JR4 and JL4 catheters. Left heart catheterization was performed using the JR4 catheter, which crossed the aortic valve. Then I did pull back across the valve. The procedure was completed without any complication. SELECTIVE CORONARY ANGIOGRAM: 1. The RCA is a moderate-caliber vessel. It is a nondominant vessel. The RCA is angiographically normal. 2. The left main is angiographically normal. It bifurcates into LCX and LAD. 3. The LCX is a large-caliber vessel. It is a dominant vessel. The proximal left circumflex appeared to be angiographically normal. The mid left circumflex is normal. The left circumflex distally is angiographically normal and bifurcates into PDA and PLV branches; both appeared to have mild disease only. 4. The LAD is a large-caliber vessel. The LAD has mild disease only. It gives rise to a large diagonal branch which seems to be angiographically normal. 5. HEMODYNAMICS: The LVEDP was 20 mmHg without significant gradient across the aortic valve. CONCLUSION: 1. 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 2. Dominant left circumflex coronary system. 3. Elevated filling pressure/LVEDP at 20 mmHg. POST-PROCEDURE MANAGEMENT: 1. Continue the current medical regimen. 2. Aggressive cholesterol control. 3. Risk factor modifications. 4. Diuretics down the line. 5. Follow up with the patient. MMODL / IJN: [id number] /
[2021-01-20 19:48] VITALS: BP 110/67; PULSE 68
== END 2021-01-20 16:35 | disposition home or self-care (01) ==
LOC: CATHCVL 07:22
PROVIDERS: ATTEND Internal Medicine Interventional Cardiology
DX: I25.10 Atherosclerotic heart disease of native coronary artery without angina pectoris (principal); I42.8 Other cardiomyopathies; I10 Essential (primary) hypertension; I08.0 Rheumatic disorders of both mitral and aortic valves; F17.210 Nicotine dependence, cigarettes, uncomplicated; E78.5 Hyperlipidemia, unspecified; E66.3 Overweight; Z20.822 Contact with and (suspected) exposure to COVID-19; Z68.36 Body mass index [BMI] 36.0-36.9, adult; Z79.890 Hormone replacement therapy; Z79.899 Other long term (current) drug therapy; Z79.82 Long term (current) use of aspirin
CPT/HCPCS: 93458; 87635; C1769 ×3; C1894 ×3; C1760; J2250; J2001; J3010; Q9967

== ENCOUNTER 2022-09-16 02:20 | Inpatient (IN) | payer MEDICARE ==
[2022-09-16] MEDS ORDERED: SODIUM CHLORIDE 0.9% 500 ML 500 ML IV STA (02:29)
[2022-09-16] MEDS ORDERED: SODIUM CHLORIDE 0.9% 1,000 ML IV STA (02:29)
--- NOTE | 2022-09-16 02:30 | ED ---
Chest Pain HPI - General Chief Complaint: Chest Pain Stated Complaint: Chest Pain,GALILEO Source: patient, RN notes reviewed, old records reviewed, Caregiver Mode of arrival: ambulatory Limitations: no limitations - History of Present Illness Initial Comments: This is a 77-year-old male DF for evaluation. Patient presents today for evaluation of chest pain persistent chest pain here in the emergency department left-sided chest pain with heaviness diaphoresis and shortness of breath this woke him from sleep tonight. This patient is multiple ER visits recently for chest pain and this is the worst that is lasting as long as it has usually goes away bites oh now is persistent MD Complaint: chest pain -: minutes(s) Onset: during rest, awoke with symptoms Pain Location: substernal Pain Radiation: none Severity: moderate Severity scale (1-10): 5 Consistency: constant Improves With: nothing Worsens With: nothing Anginal Symptoms: diaphoresis, sense of impending doom Other Symptoms: palpitations Treatments Prior to Arrival: none - Related Data Home Medications Medication Instructions Recorded Confirmed Ascorbic Acid [Vitamin C] 1,000 mg PO DAILY 01/08/17 01/20/21 Aspirin [Adult Low Dose Aspirin EC] 81 mg PO DAILY 01/08/17 01/20/21 Calcium Carbonate [Calcium] 600 mg PO DAILY 01/08/17 01/20/21 Finasteride [Proscar] 5 mg PO QA 01/08/17 01/20/21 Levothyroxine Sodium [Synthroid] 150 mcg PO DAILY 01/08/17 01/20/21 Losartan [Cozaar] 12.5 mg PO HS 01/08/17 01/20/21 Multivitamins, Thera [Multivitamin 1 tab PO DAILY 01/08/17 01/20/21 (formulary)] Naproxen 500 mg PO HS 01/08/17 01/20/21 Omeprazole 20 mg PO DAILY 01/08/17 01/20/21 Timolol 0.5% Ophth Soln [Timoptic 1 drop BOTH EYES DAILY 01/08/17 01/20/21 0.5% Ophth Soln] Metoprolol Tartrate [Lopressor] 12.5 mg PO BID 11/13/17 01/20/21 Atorvastatin [Lipitor] 10 mg PO HS 09/18/18 01/20/21 oxyCODONE HCL/ACETAMINOPHEN 1 tab PO DAILY 09/18/18 01/20/21 [Percocet 5-325 mg] Melatonin [Melatonin Dissolving 10 mg PO HS 01/15/21 01/20/21 Tablet] Spironolactone [Aldactone] 25 mg PO DAILY 01/15/21 01/20/21 Allergies Allergy/AdvReac Type Severity Reaction Status Date / Time No Known Allergies Allergy Verified 09/16/22 02:22 Review of Systems ROS Statement: Those systems with pertinent positive or pertinent negative responses have been documented in the HPI. ROS Other: All systems not noted in ROS Statement are negative. EKG Findings - EKG Comments: EKG Findings:: EKG is sinus 84 NE 200 QRS 152 QTC 477 interpreted by me Past Medical History Past Medical History: GERD/Reflux, Hyperlipidemia, Hypertension, Myocardial Infarction ([place]), Osteoarthritis (OA), Pneumonia, Prostate Disorder, Thyroid Disorder Additional Past Medical History / Comment(s): hx kidney stone, recent cough-now resolved, covid 08/27 Last Myocardial Infarction Date:: ? History of Any Multi-Drug Resistant Organisms: None Reported Past Surgical History: Heart Catheterization, Hernia Repair, Orthopedic Surgery Additional Past Surgical History / Comment(s): jackeline carpal tunnel, rt cataract. /umbilical hernia repair, kidney stone lithotripsy, carpal tunnel rt wrist. rt cataract, orif rt leg Past Anesthesia/Blood Transfusion Reactions: No Reported Reaction Past Psychological History: No Psychological Hx Reported Smoking Status: Former smoker Past Alcohol Use History: None Reported Past Drug Use History: None Reported - Past Family History Mother Family Medical History: Cancer Brother(s) Family Medical History: Cancer General Exam Limitations: no limitations General appearance: alert, in no apparent distress Head exam: Present: atraumatic, normocephalic, normal inspection Eye exam: Present: normal appearance, PERRL, EOMI. Absent: scleral icterus, conjunctival injection, periorbital swelling ENT exam: Present: normal exam, mucous membranes moist Neck exam: Present: normal inspection. Absent: tenderness, meningismus, ly mphadenopathy Respiratory exam: Present: normal lung sounds bilaterally. Absent: respiratory distress, wheezes, rales, rhonchi, stridor Cardiovascular Exam: Present: regular rate, normal rhythm, normal heart sounds. Absent: systolic murmur, diastolic murmur, rubs, gallop, clicks GI/Abdominal exam: Present: soft, normal bowel sounds. Absent: distended, tenderness, guarding, rebound, rigid Extremities exam: Present: normal inspection, full ROM, normal capillary refill. Absent: tenderness, pedal edema, joint swelling, calf tenderness Back exam: Present: normal inspection Neurological exam: Present: alert, oriented X3, CN II-XII intact Psychiatric exam: Present: normal affect, normal mood Skin exam: Present: warm, dry, intact, normal color. Absent: rash Course Vital Signs 09/16/22 02:22 Temperature 97.4 F L Pulse Rate 89 Respiratory 16 Rate Blood Pressure 135/82 O2 Sat by Pulse 96 Oximetry - Reevaluation(s) Reevaluation #1: 09/16/22 02:30 Medical record is reviewed Reevaluation #2: 09/16/22 03:32 Patient hasn't changed chest pain here in the ER Reevaluation #3: 09/16/22 03:32 Patient informed results and questions answered Reevaluation #4: 09/16/22 02:30 Differential Chest Pain: Stable Angina, Unstable Angina, STEMI, NSTEMI Aortic Dissection, Pneumothorax, Musculoskeletal, Esophageal Spasm GERD, Cholecystitis, Pancreatitis, Zoster, this is not meant to be an all-inclusive list. Reevaluation #5: 09/16/22 02:30 Was pt. sent in by a medical professional or institution? @ -no Did you speak to anyone other than the patient for history? @ -no Did you review nursing and triage notes? @ -agree Were old charts reviewed? @ -no Differential Diagnosis? @ -prior EKG interpreted by me (3pts min.)? @ -yes X-rays interpreted by me (1pt min.)? @ -ues CT interpreted by me (1pt min.)? @ -[none] U/S interpreted by me (1pt. min.)? @ -[none] What testing was considered but not performed? (CT, X-rays, U/S, labs)? Why? @ no What meds were considered but not given? Why? @ -n Did you discuss the management of the patient with other professionals? @ -[profoyou reconcile home meds? @ -[none] Was smoking cessation discussed for >3mins.? @ -[none] Was critical care preformed (if so, how long)? @ -[none] Were there social determinants of health that impacted care today? How? (Homelessness, low income, unemployed, alcoholism, drug addiction, t ransportation, low edu. Level, literacy, decrease access to med. care, halfway, rehab)? @ -no Was there de-escalation of care discussed even if they declined? (Discuss DNR or withdrawal of care, Hospice)? @ -no What co-morbidities impacted this encounter? (DM, HTN, Smoking, COPD, CAD, Cancer, CVA, Hep., AIDS, mental health diagnosis, sleep apnea, morbid obesity)? @ -no Was patient admitted / discharged? @ -admit Undiagnosed new problem with uncertain prognosis? @ -[none] Drug Therapy requiring intensive monitoring for toxicity (Heparin, Nitro, Insulin, Cardizem)? @ -[none] Were any procedures done? @ -[none] Diagnosis/symptom? @ -[default] Acute, or Chronic, or Acute on Chronic? @ -[default] Uncomplicated (without systemic symptoms) or Complicated (systemic symptoms)? @ -[default] Side effects of treatment? @ -[none] Exacerbation, Progression, or Severe Exacerbation] @ -[no] Poses a threat to life or bodily function? @ -[no] 09/16/22 03:32 Chest Pain MDM - MDM 77 male to the emergency department with recurrent anginal type symptoms chest pain is classic in nature with shortness of breath diaphoresis patient will be admitted for cardiology observation Critical Care Time Critical Care Time: Yes Total Critical Care Time: 31 Disposition Clinical Impression: Chest pain Disposition: HOME SELF-CARE Condition: Undetermined Instructions (If sedation given, give patient instructions): Chest Pain (ED) Is patient prescribed a controlled substance at d/c from ED?: No Referrals: Sixto Ascencio III, MD [Primary Care Provider] - 1-2 days Time of Disposition: 03:35
[2022-09-16 02:48] LABS: Basophils # (A) 0.1 k/uL (0-0.2); Basophils % (A) 1 %; Eosinophils # (A) 0.5 k/uL (0-0.7); Eosinophils % (A) 4 %; HCT 40.5 % (39.0-53.0); HGB 13.6 gm/dL (13.0-17.5); Lymphocytes # (A) 1.9 k/uL (1.0-4.8); Lymphocytes % (A) 17 %; MCH 30.1 pg (25.0-35.0); MCHC 33.5 g/dL (31.0-37.0); MCV 89.7 fL (80.0-100.0); Mean Platelet Volume 8.4; Monocytes # (A) 0.7 k/uL (0-1.0); Monocytes % (A) 6 %; Neutrophils # (A) 7.7 k/uL (1.3-7.7); Neutrophils % (A) 71 %; Platelet Count 256 k/uL (150-450); RBC 4.51 m/uL (4.30-5.90); RDW 13.2 % (11.5-15.5); WBC 10.9 k/uL (3.8-10.6)
--- NOTE | 2022-09-16 02:51 | XR ---
EXAMINATION TYPE: XR chest 1V portable DATE OF EXAM: 09/16/2022 COMPARISON: NONE HISTORY: Chest pain TECHNIQUE: Single view FINDINGS: Heart is enlarged. No heart failure. There are chest leads. Costophrenic angles are clear. Bony thorax is intact. Thoracic aorta is atheromatous. IMPRESSION: Mild cardiomegaly. No active cardiopulmonary disease.
[2022-09-16 03:00] LABS: ALT 28 U/L (4-49); AST 29 U/L (17-59); African American GFR (CKD) >90 (>60 ml/min/1.73 sqM); Albumin 4.1 g/dL (3.5-5.0); Alkaline Phosphatase 95 U/L (38-126); Anion Gap 7 mmol/L; Blood Urea Nitrogen 21 mg/dL (9-20); Calcium 9.3 mg/dL (8.4-10.2); Carbon Dioxide 28 mmol/L (22-30); Chloride 103 mmol/L (98-107); Glucose 156 mg/dL (74-99); Lipase 124 U/L (23-300); Magnesium 1.9 mg/dL (1.6-2.3); Non-African American GFR(CKD) 87 (>60 ml/min/1.73 sqM); Potassium 3.9 mmol/L (3.5-5.1); Sodium 138 mmol/L (137-145); Total Bilirubin 0.7 mg/dL (0.2-1.3); Total Protein 6.8 g/dL (6.3-8.2)
[2022-09-16 03:14] LABS: INR 0.9 (<1.2); Partial Thromboplastin Time 20.8 sec (22.0-30.0); Prothrombin Time 9.9 sec (9.0-12.0)
[2022-09-16] MEDS ORDERED: NITROGLYCERIN SL TABS 0.4 MG TAB SUBLINGUAL PRN ×2 (03:30→08:34)
[2022-09-16] MEDS ORDERED: HEPARIN SOD,PORK IN 0.45% NACL 25,000 UNIT in 0.45% NACL 1 250ML.BAG IV SCH (03:30)
[2022-09-16] MEDS ORDERED: ASPIRIN 81 MG PO STA (03:30)
[2022-09-16] MEDS ORDERED: HEPARIN SODIUM 1,000 UN/ML (10ML VL) IV ONE ×2 (03:30→11:06)
[2022-09-16] MEDS ORDERED: MORPHINE SULFATE 4 MG/ML SYRINGE IV PRN (03:30)
[2022-09-16 06:45] LABS: Mean Platelet Volume 8.4; Platelet Count 223 k/uL (150-450)
[2022-09-16] MEDS ORDERED: ALPRAZolam 0.5 MG TAB PO PRN (08:34)
[2022-09-16] MEDS ORDERED: ALPRAZolam 0.25 MG TAB PO PRN (08:34)
[2022-09-16] MEDS ORDERED: ATORVASTATIN 80 MG TAB PO STA (08:34)
[2022-09-16] MEDS: ATORVASTATIN 80 MG TAB PO SCH (08:54)
[2022-09-16] MEDS ORDERED: METOPROLOL SUCCINATE (ER) 25 MG TAB.ER.24H PO SCH (09:00)
[2022-09-16] MEDS: ASPIRIN 325 MG TAB PO STA ×2 (09:03→11:30)
[2022-09-16] MEDS: SPIRONOLACTONE 25 MG TAB PO SCH (09:03)
[2022-09-16 10:15] LABS: Partial Thromboplastin Time 34.3 sec (22.0-30.0)
[2022-09-16] MEDS ORDERED: MIDAZOLAM 2 MG/2 ML VIAL IV ONE (10:15)
--- NOTE | 2022-09-16 10:16 | P.CRDCN ---
History of Present Illness Consult date: 09/16/22 Consult reason: chest pain History of present illness: History of present illness: This is a 77-year-old male patient of Dr. pierre with past medical history of mild coronary artery disease, nonischemic cardiomyopathy, valvular heart disease with aortic and mitral regurgitation, hypertension, tobacco use. Patient was recently treated for pneumonia on antibiotics. Patient was last seen in the office on 09/04/2022 with plan to obtain myocardial perfusion imaging stress test. Patient presented to the emergency due to left-sided chest pain with heaviness, diaphoresis and shortness of breath that woke him from sleep. He states that pain also went up to his jaw and was an ache. Patient is not normally very active but walks to his mailbox and take his garbage out and did not express pain with those activities and last few days. EKG right bundle branch block nonspecific ST-T wave changes 2 WBC 10.9, hemoglobin 13.6. Potassium 3.9, BUN 21 creatinine 0.78. Blood sugar 156. Liver function tests normal. Troponins 0.012, 0.168. ProBNP 1190. Lipase 124. Chest x-ray shows mild cardiomegaly. No active cardiac pulmonary disease Home cardiac medications: Lipitor 10 mg at bedtime, Lasix 40 mg daily, losartan 12.5 mg at bedtime, Toprol-XL 25 mg daily, Aldactone 12.5 mg daily Cardiac catheterization 01/[address] Jerome revealed mild nonobstructive coronary artery disease involving the LAD. Dominant left circumflex coronary. Elevated filling pressures/LVEDP at 20 mmHg. Echocardiogram 08/06/2022 revealed EF of 40% with moderate mitral regurgitation CTA of the chest 09/12/2021 as an outpatient revealed no evidence of pulmonary em bolus. Some LAD and circumflex coronary artery calcifications. Mild diffuse bronchial wall thickening could represent bronchitis or asthma. Some particular change at the right base likely atelectasis or scarring. A few primary nodules measuring up to 5 mm. Review Of Systems: At the time of my evaluation: Constitutional: No fever, no chills. No weakness, fatigue or lethargy. EENT: No headache. No dizziness. Lungs: No shortness of breath, cough, no sputum production. No wheezing. Cardiovascular: No chest pain, no lower extremity edema. No palpitations. No paroxysmal nocturnal dyspnea. No orthopnea. No lightheadedness or dizziness. No syncopal episodes. Abdominal: No abdominal pain. No nausea, vomiting. No diarrhea. No constipation. No bloody or tarry stools. Genitourinary: No dysuria.. No urinary retention. Musculoskeletal: No myalgias. No muscle weakness, no frequent falls. No back pain. No neck pain. Integumentary: No wounds. No rash. No unusual bruising. Neurologic: No aphasia. No facial droop. No change in mentation. No head injury. No headache. Psychiatric: No depression. No anxiety. Endocrine: No abnormal blood sugars. Physical examination: Gen: This is a 77-year-old male. He is resting bed and appears to be comfortable and in no acute distress VS: reviewed HEENT: Head is atraumatic, normocephalic. Pupils equal, round. Sclerae is anicteric. NECK: Supple. No JVD. No lymphadenopathy. No thyromegaly. LUNGS: Clear to auscultation. No wheezes or rhonchi. No intercostal retractions. HEART: Regular rate and rhythm. No murmur. ABDOMEN: Soft. Bowel sounds are present. No masses. No tenderness. EXTREMITIES: No pedal edema. No calf tenderness. NEUROLOGICAL: Patient is awake, alert and oriented x3. Cranial nerves 2 through 12 are grossly intact. Assessment: Acute non-ST elevated myocardial infarction History of mild coronary artery disease Nonischemic cardiomyopathy Valvular heart disease with aortic and mitral regurgitation Hypertension Tobacco use Plan: Obtain d-dimer Continue heparin drip Resume home cardiac medications Patient will be scheduled for cardiac catheterization today with Dr. Jerome Further recommendations to follow based upon clinical course Thank you kindly for this consultation. Nurse practitioner note has been reviewed, I agree with documented findings and plan of care. Patient was seen and examined. Past Medical History Past Medical History: GERD/Reflux, Hyperlipidemia, Hypertension, Myocardial Infarction ([place]), Osteoarthritis ([place]), Pneumonia, Prostate Disorder, Thyroid Disorder Additional Past Medical History / Comment(s): hx kidney stone, recent cough-now resolved, covid 08/27 Last Myocardial Infarction Date:: ? History of Any Multi-Drug Resistant Organisms: None Reported Past Surgical History: Heart Catheterization, Hernia Repair, Orthopedic Surgery Additional Past Surgical History / Comment(s): jackeline carpal tunnel, rt cataract. /umbilical hernia repair, kidney stone lithotripsy, carpal tunnel rt wrist. rt cataract, orif rt leg Past Anesthesia/Blood Transfusion Reactions: No Reported Reaction Past Psychological History: No Psychological Hx Reported Smoking Status: Former smoker Past Alcohol Use History: None Reported Additional Past Alcohol Use History / Comment(s): quit smoking 1989, started 1959, smoked 1ppd Past Drug Use History: None Reported - Past Family History Mother Family Medical History: Cancer Brother(s) Family Medical History: Cancer Medications and Allergies Home Medications Medication Instructions Recorded Confirmed Type Calcium Carbonate [Calcium] 600 mg PO PC-LUNCH 01/08/17 09/16/22 History Finasteride [Proscar] 5 mg PO QAM 01/08/17 09/16/22 History Levothyroxine Sodium [Synthroid] 150 mcg PO DAILY 01/08/17 09/16/22 History Losartan [Cozaar] 12.5 mg PO HS 01/08/17 09/16/22 History Multivitamins, Thera [Multivitamin 1 tab PO PC-LUNCH 01/08/17 09/16/22 History (formulary)] Omeprazole 20 mg PO DAILY 01/08/17 09/16/22 History Atorvastatin [Lipitor] 10 mg PO HS 09/18/18 09/16/22 History Spironolactone [Aldactone] 12.5 mg PO DAILY 01/15/21 09/16/22 History Albuterol Nebulized [Ventolin 2.5 mg INHALATION RT-TID 09/16/22 09/16/22 History Nebulized] Doxycycline Hyclate 100 mg PO Q12H 09/16/22 09/16/22 History Furosemide [Lasix] 40 mg PO DAILY 09/16/22 09/16/22 History Metoprolol Succinate (ER) [Toprol 25 mg PO DAILY 09/16/22 09/16/22 History Xl] Allergies Allergy/AdvReac Type Severity Reaction Status Date / Time No Known Allergies Allergy Verified 09/16/22 07:37 Physical Exam Vitals: Vital Signs Temp Pulse Pulse Resp BP BP Pulse Ox 09/16/22 07:00 98 F 88 18 112/68 96 09/16/22 05:00 97.9 F 87 19 130/76 97 09/16/22 04:59 18 09/16/22 04:28 85 15 125/75 100 09/16/22 02:22 97.4 F L 89 16 135/82 96 Intake and Output 09/15/22 09/16/22 09/16/22 22:59 06:59 14:59 Other: Voiding Method Toilet # Voids 1 Weight 97.069 kg Results 09/16/22 06:20 09/16/22 02:38 Cardiac Enzymes 09/16/22 09/16/22 09/16/22 Range/Units 02:38 02:38 06:20 AST 29 (17-59) U/L Troponin I <0.012 0.168 H* (0.000-0.034) ng/mL Coagulation 09/16/22 Range/Units 02:38 PT 9.9 (9.0-12.0) sec APTT 20.8 L (22.0-30.0) sec CBC 09/16/22 09/16/22 Range/Units 02:38 06:20 WBC 10.9 H (3.8-10.6) k/uL RBC 4.51 (4.30-5.90) m/uL Hgb 13.6 (13.0-17.5) gm/dL Hct 40.5 (39.0-53.0) % Plt Count 256 223 (150-450) k/uL Comprehensive Metabolic Panel 09/16/22 Range/Units 02:38 Sodium 138 (137-145) mmol/L Potassium 3.9 (3.5-5.1) mmol/L Chloride 103 (98-107) mmol/L Carbon Dioxide 28 (22-30) mmol/L BUN 21 H (9-20) mg/dL Creatinine 0.78 (0.66-1.25) mg/dL Glucose 156 H (74-99) mg/dL Calcium 9.3 (8.4-10.2) mg/dL AST 29 (17-59) U/L ALT 28 (4-49) U/L Alkaline Phosphatase 95 (38-126) U/L Total Protein 6.8 (6.3-8.2) g/dL Albumin 4.1 (3.5-5.0) g/dL Current Medications Generic Name Dose Route Start Last Admin Trade Name Freq PRN Reason Stop Dose Admin Aspirin 325 mg 09/17/22 09:00 Aspirin 325 Mg Tab PO DAILY [facility] Atorvastatin Calcium 80 mg 09/16/22 09:00 Atorvastatin 80 Mg Tab PO DAILY SURINDER Sodium Chloride 1,000 mls @ 100 mls/hr 09/16/22 02:29 09/16/22 02:41 Saline 0.9% IV 09/16/22 12:28 100 mls/hr .Q10H STA Administration Heparin Sodium/Sodium Chloride 250 mls @ 10 mls/hr 09/16/22 03:30 09/16/22 04:25 25,000 unit/ Sodium Chloride IV 10.302 units/kg/hr .Q24H SURINDER 10 mls/hr Administration Protocol 10.302 UNITS/KG/HR Morphine Sulfate 4 mg 09/16/22 03:30 Morphine Sulfate 4 Mg/Ml Syringe IV Q4HR PRN Chest Pain Nitroglycerin 0.4 mg 09/16/22 03:30 Nitroglycerin Sl Tabs 0.4 Mg Tab SUBLINGUAL Q5M PRN Chest Pain Intake and Output 09/15/22 09/16/22 09/16/22 22:59 06:59 14:59 Other: Voiding Method Toilet # Voids 1 Weight 97.069 kg 09/16/22 06:20 09/16/22 02:38
[2022-09-16] MEDS ORDERED: LIDOCAINE 1% INJ 10MG/ML (5 ML VIAL-PF) SQ ONE (10:18)
[2022-09-16] MEDS ORDERED: VERAPAMIL SYRINGE (5 MG/10 ML) INTRAARTER ONE (10:19)
[2022-09-16] MEDS: HEPARIN SODIUM 1,000 UN/ML (10ML VL) IV ONE ×3 (10:22→10:50)
[2022-09-16] MEDS ORDERED: SODIUM CHLORIDE 0.9% 1,000 ML IV ONE (10:23)
[2022-09-16] MEDS ORDERED: IOPAMIDOL-370 100ML BTL INJ ONE ×2 (10:52→11:00)
[2022-09-16] MEDS ORDERED: CLOPIDOGREL 75 MG TAB PO ONE (10:57)
[2022-09-16] MEDS ORDERED: ZOLPIDEM 5 MG TAB PO PRN (11:06)
[2022-09-16] MEDS ORDERED: RX INFO: IV CONTRAST WAS GIVEN 1 EACH MISC MISCELLANE PRN (11:06)
[2022-09-16] MEDS ORDERED: ATROPINE SULFATE 0.1 MG/ML 10ML SYRINGE IV PRN (11:06)
[2022-09-16] MEDS ORDERED: MAG HYDROX/AL HYDROX/SIMETH 30 ML CUP PO PRN (11:06)
[2022-09-16] MEDS ORDERED: SODIUM CHLORIDE 0.9% 1,000 ML in EMPTY BAG 1 BAG IV SCH (11:15)
[2022-09-16] MEDS ORDERED: ALBUTEROL NEBULIZED 2.5 MG/3 ML INHALATION PRN (14:07)
[2022-09-16 14:10] VITALS: BMI 34.5
[2022-09-16] MEDS: MULTIVITAMINS, THERA 1 EACH TAB PO SCH (14:16)
[2022-09-16] MEDS: CALCIUM CARBONATE 500 MG CHEWABLE PO SCH (14:16)
[2022-09-16] MEDS: PANTOPRAZOLE 40 MG TABLET PO SCH (14:16)
--- NOTE | 2022-09-16 14:16 | P.PCN ---
Date of Procedure: 09/16/22 Operative Findings: CARDIAC CATHETERIZATION AND PERCUTANEOUS CORONARY INTERVENTION PERFORMING PHYSICIAN: Gavin Jerome MD, [facility] PROCEDURE PERFORMED: 1. Selective right and left coronary angiogram 2. Left heart catheterization 3. Successful stenting of the proximal left anterior descending artery using 3.5 x 18 mm Xience GUDELIA with an excellent angiographic results 4. iFR of the left anterior descending INDICATION: Acute non-ST elevation myocardial infarction COMPLICATION: None APPROACH: Right radial artery LEVEL OF SEDATION: Moderate with a sedation length of 40 minutes PROCEDURE DESCRIPTION: After obtaining an informed consent, the patient was brought to cardiac mobile home laborer. Local anesthesia was performed using lidocaine subcutaneously. The right radial artery was cannulated using Seldinger technique, the guidewire passed easily, following that we advanced a 5-St Helenian sheath dilator assembly, the wire and dilator were removed and sheath was flushed. Following that, 2 mg of verapamil along with 5000 unit heparin were given. Selective right and left coronary angiogram using a 6-St Helenian JR4 and JL 3.5 catheters. Following that we did left heart catheterization using 6-St Helenian pigtail catheter. The procedure was completed there was no complication. SELECTIVE CORONARY ANGIOGRAM: The right coronary artery: Medium caliber vessel nondominant vessel appears to be angiographically normal Left main: Has mild disease only. Bifurcates into the LCx and LAD The left circumflex: Large caliber vessel and a dominant vessel. The proximal LCx appeared to have mild disease only. It gives rises into an OM1 which has mild disease only. The circumflex distally gives rises into an OM to 1.3 both appeared to have mild disease only. And the circumflex after that gives rises into PDA and PLV branches appeared to be angiographically normal The left anterior descending artery: The LAD proximally just after the bifurcation of the septal insurance sales associate branch has eccentric lesion appeared to be in the range of 50-60% most prominent on the SINGLETON caudal view. We did iFR and that came in to be ischemic and 0.88. The mid and distal LAD appears to have mild disease only. HEMODYNAMICS: The LVDP was about 16 mmHg was no significant gradient across aortic valve iFR of the LAD and PCI of the LAD: Anticoagulation was initiated using heparin with continuous ACT monitoring. Subsequently I did 0 the Doppler wire and after equalizing between the Doppler wire and the guiding catheter which was JL4 guiding catheter and after wiring the LAD we did iFR and that came in to be ischemic at 0.88. I did direct stenting of the lesion in the LAD using 3.5 x 18 mm stent where the stent was positioned under fluoroscopy guidance and deployed under 16 edilia for 20 seconds. Postdilatation was performed using 4 mm noncompliant balloon. The final angiogram showed excellent angiographic results and the procedure was completed was no complication CONCLUSION: 1. Intermediate lesion involving the proximal LAD. iFR=0.88 I did successful stenting of the LAD. 2 Mild disease involving the LCx 3. Nondominant right coronary artery POSTPROCEDURE MANAGEMENT: Dual antiplatelet therapy for twelve-month including aspirin and Plavix
[2022-09-16] MEDS: ALBUTEROL NEBULIZED 2.5 MG/3 ML INHALATION SCH ×2 (14:36→20:27)
--- NOTE | 2022-09-16 15:19 | P.HPIM ---
History of Present Illness H&P Date: 09/16/22 This is a pleasant 77-year-old male who presented to the emergency department with chest pain causing some shortness of breath that woke him up from his sleep. Patient reports he recently went to an urgent care as he was having significant wheezing and some shortness of breath and was started on doxycycline and normally takes albuterol treatments 3 times daily. Patient started having some increased left-sided chest pain with heaviness and became diaphoretic and came here for further evaluation. Patient reports he follows with Dr. Ascencio in the outpatient setting with a past medical history of GERD, hyperlipidemia, hypertension, myocardial infarction, osteoarthritis, pneumonia, prostate disorder, thyroid disorder. Patient reports to smoking in the past but has quit since 1989 and denies any other illicit drug or alcohol use. Patient was admitted with initial troponin being negative although repeat troponin was elevated at 0.168 and third troponin was elevated as well at 0.487 patient was placed on heparin with cardiology on consult. Cardiology evaluated the patient early this morning and was scheduled for cardiac catheterization. Patient did have an elevated d-dimer on exam as well. Review Of Systems: Constitutional: No fever, no chills, no night sweats. No weight change. No weakness, fatigue or lethargy. No daytime sleepiness. EENT: No headache. No blurred vision or double vision, no loss of vision. No loss of Hearing, no ringing in the ears, no dizziness. No nasal drainage or congestion. No epistaxis. No sore throat. Lungs: Reports shortness of breath, reports cough, no sputum production. Reports wheezing. Cardiovascular: Reports chest pain, no lower extremity edema. No palpitations. No paroxysmal nocturnal dyspnea. No orthopnea. No lightheadedness or dizziness. No syncopal episodes. Abdominal: No abdominal pain. No nausea, vomiting. No diarrhea. No constipation. No bloody or tarry stools.. No loss of appetite. Genitourinary: No dysuria, increased frequency, urgency. No urinary retention. Musculoskeletal: No myalgias. No muscle weakness, no gait dysfunction, no frequent falls. No back pain. No neck pain. Integumentary: No wounds, no lesions. No rash or pruritus. No unusual bruising. No change in hair or nails. Neurologic: No aphasia. No facial droop. No change in mentation. No head injury. No headache. No paralysis. No paresthesia. Psychiatric: No depression. No anxiety. No mood swings. Endocrine: No abnormal blood sugars. No weight change. No excessive sweating or thirst. No cold intolerance. PHYSICAL EXAMINATION: GENERAL: The patient is alert and oriented x4, Well developed, well nourished. Obese. HEENT: Pupils are round and equally reacting to light. EOMI. no scleral icterus. No conjunctival pallor. Normocephalic, atraumatic. No pharyngeal erythema. No thyromegaly. CARDIOVASCULAR: S1 and S2 muffled PULMONARY: diminished breath sounds bilaterally with with some mild expiratory wheezing noted. ABDOMEN: soft. Nontender on exam. obese. non-distended, normoactive bowel sounds. No palpable organomegaly. MUSCULOSKELETAL: No joint swelling or deformity. EXTREMITIES: No cyanosis, clubbing, or pedal edema. NEUROLOGICAL: Gross neurological examination did not reveal any focal deficits. SKIN: No rashes. Assessment: Chest pain, NSTEMI History of coronary artery disease Nonischemic cardiomyopathy history of hypertension Gastroesophageal reflux disease Hyperlipidemia Thyroid disorder GI prophylaxis DVT prophylaxis Full code Plan: Recommend to continue with current medications and management and patient initial troponin was negative although subsequent troponins became elevated and patient was placed on IV heparin with cardiology on consult. Cardiology evaluated the patient this morning and scheduled patient for cardiac catheterization which is currently pending Patient was recently started on doxycycline for possible pneumonia although chest x-ray is clear of any cardiopulmonary process Patient does use albuterol treatments and will resume and also add when necessary as patient is having some wheezing and some shortness of breath with exertion. will follow-up on chest x-ray in the a.m. Home medications have been reviewed and resumed and awaiting Catheterization R eport Encouraged increased activity as tolerated Patient did have elevated d-dimer although received contrast today at catheterization and will order CT of the chest in the a.m. Will follow-up with repeat labs The impression and plan of care has been dictated by Melissa Thomas, nurse practitioner as directed. Dr. Carmencita MD I have performed a history and examination and MDM of this patient, discussed the same with the dictator, and agree with the dictator's assessment and plan as written ,documented as a scribe. Based on total visit time, I have performed more than 50% of the visit. Any additional findings or plans will be noted. Past Medical History Past Medical History: GERD/Reflux, Hyperlipidemia, Hypertension, Myocardial Infarction ([place]), Osteoarthritis (OA), Pneumonia, Prostate Disorder, Thyroid Disorder Additional Past Medical History / Comment(s): hx kidney stone, recent cough-now resolved, covid 08/27 Last Myocardial Infarction Date:: ? History of Any Multi-Drug Resistant Organisms: None Reported Past Surgical History: Heart Catheterization, Hernia Repair, Orthopedic Surgery Additional Past Surgical History / Comment(s): jackeline carpal tunnel, rt cataract. /umbilical hernia repair, kidney stone lithotripsy, carpal tunnel rt wrist. rt cataract, orif rt leg Past Anesthesia/Blood Transfusion Reactions: No Reported Reaction Past Psychological History: No Psychological Hx Reported Smoking Status: Former smoker Past Alcohol Use History: None Reported Additional Past Alcohol Use History / Comment(s): quit smoking 1989, started 1959, smoked 1ppd Past Drug Use History: None Reported - Past Family History Mother Family Medical History: Cancer Brother(s) Family Medical History: Cancer Medications and Allergies Home Medications Medication Instructions Recorded Confirmed Type Calcium Carbonate [Calcium] 600 mg PO PC-LUNCH 01/08/17 09/16/22 History Finasteride [Proscar] 5 mg PO QAM 01/08/17 09/16/22 History Levothyroxine Sodium [Synthroid] 150 mcg PO DAILY 01/08/17 09/16/22 History Losartan [Cozaar] 12.5 mg PO HS 01/08/17 09/16/22 History Multivitamins, Thera [Multivitamin 1 tab PO PC-LUNCH 01/08/17 09/16/22 History (formulary)] Omeprazole 20 mg PO DAILY 01/08/17 09/16/22 History Atorvastatin [Lipitor] 10 mg PO HS 09/18/18 09/16/22 History Spironolactone [Aldactone] 12.5 mg PO DAILY 01/15/21 09/16/22 History Albuterol Nebulized [Ventolin 2.5 mg INHALATION RT-TID 09/16/22 09/16/22 History Nebulized] Doxycycline Hyclate 100 mg PO Q12H 09/16/22 09/16/22 History Furosemide [Lasix] 40 mg PO DAILY 09/16/22 09/16/22 History Metoprolol Succinate (ER) [Toprol 25 mg PO DAILY 09/16/22 09/16/22 History Xl] Allergies Allergy/AdvReac Type Severity Reaction Status Date / Time No Known Allergies Allergy Verified 09/16/22 07:37 Physical Exam Vitals: Vital Signs Temp Pulse Pulse Pulse Resp BP BP 09/16/22 09:02 85 18 119/74 09/16/22 07:00 98 F 88 18 112/68 09/16/22 05:00 97.9 F 87 19 130/76 09/16/22 04:59 18 09/16/22 04:28 85 15 125/75 09/16/22 02:22 97.4 F L 89 16 135/82 Pulse Ox 09/16/22 09:02 95 09/16/22 07:00 96 09/16/22 05:00 97 09/16/22 04:59 09/16/22 04:28 100 09/16/22 02:22 96 Intake and Output 09/15/22 09/16/22 09/16/22 22:59 06:59 14:59 Other: Voiding Method Toilet # Voids 1 Weight 97.069 kg Results CBC & Chem 7: 09/16/22 06:20 09/16/22 02:38 Labs: Abnormal Lab Results - Last 24 Hours (Table) 09/16/22 09/16/22 09/16/22 Range/Units 02:38 02:38 02:38 WBC 10.9 H (3.8-10.6) k/uL APTT 20.8 L (22.0-30.0) sec BUN 21 H (9-20) mg/dL Glucose 156 H (74-99) mg/dL Troponin I (0.000-0.034) ng/mL 09/16/22 Range/Units 06:20 WBC (3.8-10.6) k/uL APTT (22.0-30.0) sec BUN (9-20) mg/dL Glucose (74-99) mg/dL Troponin I 0.168 H* (0.000-0.034) ng/mL Thrombosis Risk Factor Assmnt - DVT/VTE Prophylaxis DVT/VTE Prophylaxis: Pharmacologic Prophylaxis ordered Assessment and Plan Time with Patient: Greater than 30
[2022-09-16] MEDS ORDERED: ONDANSETRON 4 MG/2 ML VIAL IVP PRN (18:53)
--- NOTE | 2022-09-16 19:00 | XR ---
EXAMINATION TYPE: XR chest 2V DATE OF EXAM: 09/16/2022 6:44 PM COMPARISON: Chest radiographs from 09/16/2022 TECHNIQUE: XR chest 2V Frontal and lateral views of the chest. CLINICAL INDICATION:Male, 77 years old with history of SOB; FINDINGS: Lungs/Pleura: Prominent interstitial lung markings are seen scattered throughout the lungs. No eviden ce of focal consolidation, pneumothorax or pleural effusion. Pulmonary vascularity: Unremarkable. Heart/mediastinum: Cardiomediastinal silhouette is unremarkable. Musculoskeletal: No acute osseous pathology. IMPRESSION: Chronic changes without acute pulmonary process. No significant change from prior.
[2022-09-16] MEDS: SYMBICORT 160-4.5 MCG INHALER INHALATION SCH (20:39)
[2022-09-16] MEDS ORDERED: LOSARTAN 25 MG TAB PO SCH (21:00)
[2022-09-16] MEDS ORDERED: ATORVASTATIN 10 MG TAB PO SCH (21:00)
[2022-09-17 05:50] LABS: Mean Platelet Volume 8.2; Platelet Count 195 k/uL (150-450)
[2022-09-17] MEDS ORDERED: LEVOTHYROXINE 75 MCG TAB PO SCH (06:30)
[2022-09-17] MEDS: PANTOPRAZOLE 40 MG TABLET PO SCH (06:40)
[2022-09-17 06:52] LABS: Basophils % (A) 0 %; Eosinophils # (A) 0.3 k/uL (0-0.7); Eosinophils % (A) 3 %; HCT 36.6 % (39.0-53.0); HGB 12.2 gm/dL (13.0-17.5); Lymphocytes % (A) 12 %; MCH 29.7 pg (25.0-35.0); MCHC 33.2 g/dL (31.0-37.0); MCV 89.6 fL (80.0-100.0); Mean Platelet Volume 7.8; Monocytes # (A) 0.6 k/uL (0-1.0); Monocytes % (A) 7 %; Neutrophils # (A) 6.9 k/uL (1.3-7.7); Neutrophils % (A) 77 %; Platelet Count 208 k/uL (150-450); RBC 4.09 m/uL (4.30-5.90); RDW 13.6 % (11.5-15.5)
[2022-09-17] MEDS ORDERED: HEPARIN SODIUM,PORCINE 10,000 UNIT in SODIUM CHLORIDE 0.9% 1,000 ML IRRIGATION PRN (07:00)
[2022-09-17] MEDS ORDERED: HEPARIN SODIUM,PORCINE 2,500 UNIT in SODIUM CHLORIDE 0.9% 250 ML IRRIGATION PRN (07:00)
[2022-09-17 07:10] LABS: African American GFR (CKD) >90 (>60 ml/min/1.73 sqM); Anion Gap 4 mmol/L; Blood Urea Nitrogen 15 mg/dL (9-20); Calcium 8.6 mg/dL (8.4-10.2); Carbon Dioxide 27 mmol/L (22-30); Chloride 107 mmol/L (98-107); Glucose 113 mg/dL (74-99); Non-African American GFR(CKD) 90 (>60 ml/min/1.73 sqM); Potassium 3.9 mmol/L (3.5-5.1); Sodium 138 mmol/L (137-145)
[2022-09-17] MEDS: ALBUTEROL NEBULIZED 2.5 MG/3 ML INHALATION SCH ×2 (07:35→11:11)
[2022-09-17] MEDS: SYMBICORT 160-4.5 MCG INHALER INHALATION SCH (07:37)
--- NOTE | 2022-09-17 07:57 | CT ---
EXAMINATION TYPE: CT angio chest DATE OF EXAM: 09/17/2022 COMPARISON: CTA chest September 12, 2021 HISTORY: Shortness of breath and elevated d-dimer. CT DLP: 415.9 mGycm. Automated Exposure Control for Dose Reduction was Utilized. CONTRAST: CTA scan of the thorax is performed with IV Contrast, patient injected with 60 mL of Isovue 370, pulm onary embolism protocol. MIP Images are created on CT scanner and reviewed. FINDINGS: LUNGS: Exam suboptimal as patient unable to hold breath. This limits evaluation particularly for subc entimeter nodules. There are new tiny bilateral pleural effusions. Scattered areas of nodular consoli dation and/or underlying nodules are new from prior study. For reference there is 4 to 5 mm periphera l left upper lobe nodule axial image 50. For reference there is peripheral 2.0 x 0.9 cm nodular conso lidation or less likely an elongated nodule in the left upper lobe axial image 59. Reference is incre ased interstitial markings in the periphery with approximate 9 x 5 mm nodule lower nodular consolidat ion in the posterior right lower lobe axial image 91. For reference there is 1.0 x 0.7 cm irregular n odular consolidation or irregular nodule right lower lobe axial image 110. Similar possible 8 mm ling ular nodule or nodular consolidation noted axial image 98. No pneumothorax seen bilaterally. Mild to moderate linear scarring and/or atelectasis in the right greater than left lung bases is more promine nt from prior. MEDIASTINUM: There is slightly suboptimal bolus with heterogeneity but no convincing CT evidence for acute central pulmonary embolism. There are no greater than 1 cm hilar or mediastinal lymph nodes. M ild Cardiomegaly redemonstrated with moderate left atrial and left ventricular dilatation. Tiny peric ardial effusion is noted. Reflux of contrast into IVC and hepatic veins suggests degree of right hear t failure. There is coronary artery calcification and/or stents identified, latter suspected in the L AD distribution. OTHER: Bilateral gynecomastia is redemonstrated. Some cortical thinning in both kidneys suggests chronic specialist [facility] renal disease is redemonstrated. Underlying levoconvex scoliosis centered about the mid t horacic spine is redemonstrated. IMPRESSION: 1. Suboptimal study without acute pulmonary embolism. 2. Mild cardiomegaly with mild interstitial edema and tiny bilateral pleural effusions. Correlate for CHF exacerbation. In addition there are prominent areas of bilateral nodularity and/or nodular conso lidation in which bilateral multifocal acute infectious process cannot be excluded. Follow-up chest C T in 2-3 months time after treatment is advised to assess for underlying true pulmonary nodules.
[2022-09-17 08:10] VITALS: RESP 18
[2022-09-17] MEDS ORDERED: FUROSEMIDE 10 MG/ML 2 ML VIAL IV ONE (08:38)
[2022-09-17] MEDS ORDERED: FINASTERIDE 5 MG TAB PO SCH (09:00)
[2022-09-17] MEDS ORDERED: METOPROLOL SUCCINATE (ER) 50 MG TAB.ER.24H PO SCH (09:00)
[2022-09-17] MEDS ORDERED: FUROSEMIDE 40 MG TAB PO SCH (09:00)
[2022-09-17] MEDS ORDERED: ASPIRIN 325 MG TAB PO SCH (09:00)
[2022-09-17] MEDS: SPIRONOLACTONE 25 MG TAB PO SCH (09:00)
[2022-09-17] MEDS ORDERED: ASPIRIN 81 MG PO SCH (09:00)
[2022-09-17] MEDS ORDERED: CLOPIDOGREL 75 MG TAB PO SCH (09:00)
[2022-09-17] MEDS: ATORVASTATIN 80 MG TAB PO SCH ×2 (09:01→09:02)
[2022-09-17 09:07] LABS: Chol/HDL Ratio 2.09 Ratio; LDL Cholesterol,Calculated 55.8 mg/dL (0.0-131.0)
--- NOTE | 2022-09-17 09:58 | P.PN ---
Subjective Progress Note Date: 09/17/22 History of present illness: This is a 77-year-old male patient of Dr. 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 Patient was recently treated for pneumonia on antibiotics. Patient was last seen in the office on 09/04/2022 with plan to obtain myocardial perfusion imaging stress test. Patient presented to the emergency due to left-sided chest pain with heaviness, diaphoresis and shortness of breath that woke him from sleep. He states that pain also went up to his jaw and was an ache. Patient is not normally very active but walks to his mailbox and take his garbage out and did not express pain with those activities and last few days. EKG right bundle branch block nonspecific ST-T wave changes 2 WBC 10.9, hemoglobin 13.6. Potassium 3.9, BUN 21 creatinine 0.78. Blood sugar 156. Liver function tests normal. Troponins 0.012, 0.168. ProBNP 1190. Lipase 124. Chest x-ray shows mild cardiomegaly. No active cardiac pulmonary disease Home cardiac medications: Lipitor 10 mg at bedtime, Lasix 40 mg daily, losartan 12.5 mg at bedtime, Toprol-XL 25 mg daily, Aldactone 12.5 mg daily Cardiac catheterization 01/[address] Jerome revealed mild nonobstructive coronary artery disease involving the LAD. Dominant left circumflex coronary. Elevated filling pressures/LVEDP at 20 mmHg. Echocardiogram 08/06/2022 revealed EF of 40% with moderate mitral regurgitation CTA of the chest 09/12/2021 as an outpatient revealed no evidence of pulmonary embolus. Some LAD and circumflex coronary artery calcifications. Mild diffuse bronchial wall thickening could represent bronchitis or asthma. Some particular change at the right base likely atelectasis or scarring. A few primary nodules measuring up to 5 mm. 09/17 Yesterday, patient underwent cardiac catheterization with Dr. Jerome with successful stenting of the proximal LAD. Patient also had mild disease invol ving the left circumflex. Nondominant right coronary artery. D-dimer came back elevated and thus CTA ordered. CT angiogram of the chest revealed suboptimal study without acute pulmonary embolism. Mild cardiomegaly with mild interstitial edema and tiny bilateral pleural effusions. Correlate for heart failure. Prominent areas of bilateral nodularity and or nodular consolidation in which bilateral multifocal acute infectious process cannot be excluded. Follow-up CT in 2-3 months. Patient denies having any chest pain at this time but states he has a little difficulty in breathing feels like it's labored. He is using his inhaler. One dose of IV Lasix will be ordered and will recheck patient later this afternoon for anticipated discharge. Right wrist shows no signs of hematoma with good pulse. Physical examination: Gen: This is a 77-year-old male. He is resting bed and appears to be comfortable and in no acute distress VS: reviewed HEENT: Head is atraumatic, normocephalic. Pupils equal, round. Sclerae is anicteric. NECK: Supple. No JVD. No lymphadenopathy. No thyromegaly. LUNGS: Clear to auscultation. No wheezes or rhonchi. No intercostal retractions. HEART: Regular rate and rhythm. No murmur. ABDOMEN: Soft. Bowel sounds are present. No masses. No tenderness. EXTREMITIES: No pedal edema. No calf tenderness. NEUROLOGICAL: Patient is awake, alert and oriented x3. Cranial nerves 2 through 12 are grossly intact. Assessment: Acute non-ST elevated myocardial infarction status post stent of the proximal LAD History of mild coronary artery disease Nonischemic cardiomyopathy Valvular heart disease with aortic and mitral regurgitation Hypertension Tobacco use Plan: 1 dose of IV Lasix ordered now Increase Aldactone to 25 mg daily Continue patient on Toprol-XL increased to 50 mg daily Continue Plavix 75 mg daily and aspirin 81 mg daily, increase atorvastatin to 80 mg daily Continue other cardiac medications at home dosing Prescriptions have been sent to patient's pharmacy for new medications and dose changes Increase patient's activity and if patient is doing well by this afternoon, he is cleared from cardiology for discharge home. Patient will follow-up with Dr. Jerome in one week Nurse practitioner note has been reviewed, I agree with documented findings and plan of care. Patient was seen and examined. Objective - Vital Signs Vital signs: Vital Signs Temp 98.4 F 09/17/22 07:00 Pulse 88 09/17/22 07:47 Resp 18 09/17/22 07:00 BP 115/69 09/17/22 07:00 Pulse Ox 98 09/17/22 07:38 FiO2 21 09/16/22 20:27 Intake & Output 09/16/22 09/17/22 09/17/22 18:59 06:59 18:59 Intake Total 340 240 Balance 340 240 Weight 97.069 kg Intake: IV 100 Oral 240 240 Other: Voiding Method Toilet # Voids 1 1 - Labs CBC & Chem 7: 09/17/22 06:26 09/17/22 06:22 Labs: Abnormal Lab Results - Last 24 Hours (Table) 09/16/22 09/16/22 09/16/22 Range/Units 09:28 09:28 14:02 RBC (4.30-5.90) m/uL Hgb (13.0-17.5) gm/dL Hct (39.0-53.0) % APTT 34.3 H 77.7 H (22.0-30.0) sec D-Dimer 0.98 H (<0.60) mg/L FEU Glucose (74-99) mg/dL Troponin I 0.487 H* (0.000-0.034) ng/mL HDL Cholesterol (40.00-60.00) mg/dL 09/17/22 09/17/22 09/17/22 Range/Units 04:44 06:22 06:26 RBC 4.09 L (4.30-5.90) m/uL Hgb 12.2 L (13.0-17.5) gm/dL Hct 36.6 L (39.0-53.0) % APTT (22.0-30.0) sec D-Dimer (<0.60) mg/L FEU Glucose 113 H (74-99) mg/dL Troponin I (0.000-0.034) ng/mL HDL Cholesterol 65.70 H (40.00-60.00) mg/dL
[2022-09-17] MEDS: MULTIVITAMINS, THERA 1 EACH TAB PO SCH (12:45)
[2022-09-17] MEDS: CALCIUM CARBONATE 500 MG CHEWABLE PO SCH (12:45)
[2022-09-17 13:47] VITALS: BP 98/63; PULSE 82; TEMP 98
--- NOTE | 2022-09-19 17:26 | P.DS ---
Providers Date of admission: 09/16/22 11:38 Expected date of discharge: 09/17/22 Attending physician: Ike Delong Consults: 09/16/22 03:30 Consult Physician Urgent Consulting Provider: Gavin Jerome Consult Reason/Comments: known Do you want consulting provider notified?: Yes 09/16/22 11:06 Consult Physician Routine Consulting Provider: [facility] Consult Reason/Comments: Post Interventional patient Do you want consulting provider notified?: Already Contacted Primary care physician: Sixto Ascencio Hospital Course: Final diagnosis Chest pain, NSTEMI post stenting to proximal LAD History of coronary artery disease Nonischemic cardiomyopathy history of hypertension Gastroesophageal reflux disease Hyperlipidemia Thyroid disorder GI prophylaxis DVT prophylaxis Full code Discharge disposition Patient is being discharged in a stable condition with guarded prognosis to home . Patient will follow-up with Dr. Ascencio in the outpatient setting upon disch arge. Patient is to follow-up with cardiology outpatient as scheduled. Total time taken is greater than 35 minutes. Hospital course This is a 77-year-old male who was recently admitted chest pain. Patient was evaluated by cardiology and had trending troponins and underwent cardiac catheterization with successful stenting to the proximal LAD. Patient also having some shortness of breath and was recently started on doxycycline from an urgent care for possible pneumonia. Inhalers and instructed to continue to use and follow-up closely with primary care provider this week. Patient instructed to follow-up sooner if worsening shortness of breath. Repeat chest x-ray along with CT shows some suboptimal study without acute pulmonary embolism. Mild cardiomegaly with mild interstitial edema and tiny bilateral pleural effusions. Correlate for heart failure. Prominent areas of bilateral nodularity and or nodular consolidation in which bilateral multifocal acute infectious process cannot be excluded. Follow-up CT in 2-3 months. IV fluids discontinued and patient was given a dose of Lasix. Patient reports to feeling much better and has been cleared by cardiology for discharge. Patient eager to go home. Currently no reports of chest pain, shortness of breath, or palpitations. Patient is afebrile. No reports of nausea or vomiting and patient is tolerating diet. Patient will be discharged home today. Physical exam: Gen: This is a 77-year-old male who is awake, alert and oriented 3 HEENT: Head is atraumatic, normocephalic. Pupils equal, round. Sclerae is anicteric. NECK: Supple. No JVD. No lymphadenopathy. No thyromegaly. LUNGS: Clear to auscultation. No wheezes or rhonchi. No intercostal retractions. HEART: Regular rate and rhythm. No murmur. ABDOMEN: Soft. Bowel sounds are present. No masses. No tenderness. EXTREMITIES: No pedal edema. No calf tenderness. NEUROLOGICAL: Patient is awake, alert and oriented x3. Cranial nerves 2 through 12 are grossly intact. Please refer to medication reconciliation sheet for a list of medications. The impression and plan of care has been dictated by Melissa Thomas, Nurse Practitioner as directed. Dr. Carmencita MD I have performed a history and examination and MDM of this patient, discussed the same with the dictator, and agree with the dictator's assessment and plan as written ,documented as a scribe. Based on total visit time, I have performed more than 50% of the visit. Patient Condition at Discharge: Stable Plan - Discharge Summary Discharge Rx Participant: No New Discharge Prescriptions: New Aspirin 81 mg PO DAILY tab Clopidogrel [Plavix] 75 mg PO DAILY #30 tab Metoprolol Succinate (ER) [Toprol XL] 50 mg PO DAILY #30 tab Budesonide-Formot 160-4.5 Mcg [Symbicort 160-4.5 Mcg Inhaler] 2 puff INHALATION RT-BID 30 Days #1 each Albuterol Inhaler [Ventolin Hfa Inhaler] 1 puff INHALATION Q6H PRN 30 Days #1 each PRN Reason: Wheezing Atorvastatin [Lipitor] 80 mg PO DAILY #30 tab Nitroglycerin Sl Tabs [Nitrostat] 0.4 mg SUBLINGUAL Q5M PRN #25 tab PRN Reason: Chest Pain Continue Omeprazole 20 mg PO DAILY Losartan [Cozaar] 12.5 mg PO HS Finasteride [Proscar] 5 mg PO QAM Multivitamins, Thera [Multivitamin (formulary)] 1 tab PO PC-LUNCH Levothyroxine Sodium [Synthroid] 150 mcg PO DAILY Calcium Carbonate [Calcium] 600 mg PO PC-LUNCH Albuterol Nebulized [Ventolin Nebulized] 2.5 mg INHALATION RT-TID Furosemide [Lasix] 40 mg PO DAILY Changed Spironolactone [Aldactone] 25 mg PO DAILY #30 tab Discontinued Atorvastatin [Lipitor] 10 mg PO HS Doxycycline Hyclate 100 mg PO Q12H Metoprolol Succinate (ER) [Toprol Xl] 25 mg PO DAILY Discharge Medication List Calcium Carbonate [Calcium] 600 mg PO PC-LUNCH 01/08/17 [History] Finasteride [Proscar] 5 mg PO QAM 01/08/17 [History] Levothyroxine Sodium [Synthroid] 150 mcg PO DAILY 01/08/17 [History] Losartan [Cozaar] 12.5 mg PO HS 01/08/17 [History] Multivitamins, Thera [Multivitamin (formulary)] 1 tab PO PC-LUNCH 01/08/17 [History] Omeprazole 20 mg PO DAILY 01/08/17 [History] Albuterol Nebulized [Ventolin Nebulized] 2.5 mg INHALATION RT-TID 09/16/22 [History] Furosemide [Lasix] 40 mg PO DAILY 09/16/22 [History] Albuterol Inhaler [Ventolin Hfa Inhaler] 1 puff INHALATION Q6H PRN 30 Days #1 each 09/17/22 [Rx] Aspirin 81 mg PO DAILY tab 09/17/22 [Rx] Atorvastatin [Lipitor] 80 mg PO DAILY #30 tab 09/17/22 [Rx] Budesonide-Formot 160-4.5 Mcg [Symbicort 160-4.5 Mcg Inhaler] 2 puff INHALATION RT-BID 30 Days #1 each 09/17/22 [Rx] Clopidogrel [Plavix] 75 mg PO DAILY #30 tab 09/17/22 [Rx] Metoprolol Succinate (ER) [Toprol XL] 50 mg PO DAILY #30 tab 09/17/22 [Rx] Nitroglycerin Sl Tabs [Nitrostat] 0.4 mg SUBLINGUAL Q5M PRN #25 tab 09/17/22 [Rx] Spironolactone [Aldactone] 25 mg PO DAILY #30 tab 09/17/22 [Rx] Follow up Appointment(s)/Referral(s): Gavin Jerome MD [STAFF PHYSICIAN] - 10/02/22 4:30 pm Sixto Ascencio III, MD [Primary Care Provider] - 1-2 days Patient Instructions/Handouts: *Surgery [facility] - After Heart Catheterization - Sheet Taker Instructions, Chest Pain (ED), Heart Catheterization (DC) Activity/Diet/Wound Care/Special Instructions: Activities Limited until follow-up Continue taking medications as prescribed Follow-up with primary care provider on discharge Follow-up cardiology in one week Discharge Disposition: HOME SELF-CARE
== END 2022-09-17 15:13 | disposition home or self-care (01) | DRG 247 ==
LOC: EC 02:20 → 6NMEDSUR 03:32 → OBSVTOIN 11:38 → 6NMEDSUR 09-17 03:59
PROVIDERS: ADMIT Hospitalist; ATTEND Hospitalist
PROC: B2111ZZ Fluoroscopy of Multiple Coronary Arteries using Low Osmolar Contrast (ICD-10-PCS; 2022-09-16)
PROC: B2151ZZ Fluoroscopy of Left Heart using Low Osmolar Contrast (ICD-10-PCS; 2022-09-16)
PROC: 027034Z Dilation of Coronary Artery, One Artery with Drug-eluting Intraluminal Device, Percutaneous Approach (ICD-10-PCS; principal; 2022-09-16 08:25)
PROC: 4A033BC Measurement of Arterial Pressure, Coronary, Percutaneous Approach (ICD-10-PCS; 2022-09-16 08:25)
PROC: 4A023N7 Measurement of Cardiac Sampling and Pressure, Left Heart, Percutaneous Approach (ICD-10-PCS; 2022-09-16 08:25)
DX: I21.4 Non-ST elevation (NSTEMI) myocardial infarction (principal); I42.8 Other cardiomyopathies; I25.119 Atherosclerotic heart disease of native coronary artery with unspecified angina pectoris; K21.9 Gastro-esophageal reflux disease without esophagitis; E78.5 Hyperlipidemia, unspecified; I10 Essential (primary) hypertension; E07.9 Disorder of thyroid, unspecified; I08.0 Rheumatic disorders of both mitral and aortic valves; Z86.16 Personal history of COVID-19; I25.2 Old myocardial infarction; Z79.82 Long term (current) use of aspirin; Z79.890 Hormone replacement therapy; Z79.899 Other long term (current) drug therapy; Z87.442 Personal history of urinary calculi; Z87.891 Personal history of nicotine dependence
CPT/HCPCS: 36415; 71045; 71046; 71275; 80048; 80053; 80061; 83690; 83735; 83880; 84484; 85025; 85049; 85379; 85610; 85730; 93005; 93458; 93799; 94640; 94760; 96361; 96365; 99291

== ENCOUNTER → 2022-12-23 | Outpatient (CLI) | payer MEDICARE ==
--- NOTE | 2022-12-23 13:12 | CT ---
EXAMINATION TYPE: CT chest w con CT DLP: 653 mGycm, Automated exposure control for dose reduction was used. DATE OF EXAM: 12/23/2022 1:03 PM COMPARISON: . Chest radiograph 11/06/2022. CTA chest 09/17/2022 CLINICAL INDICATION:Male, 77 years old with history of R91.8; PHH, COPD TECHNIQUE: Multiple axial images were obtained through the chest following the administration of 100 cc of Isovue 300. FINDINGS: LUNGS/ PLEURA: No pleural effusion or pneumothorax. Residual left lateral upper lobe consolidation me asuring 2 x 2 millimeters, previously measured 9 x 20 mm (series 4, image 22). Other areas of scatte red nodular opacities have resolved. There is right lower lobe similar subpleural scarring demonstrat ed. No new or enlarging pulmonary nodules. AIRWAY: Patent and unremarkable.. HEART: The heart is mildly increased in size.. No pericardial effusion. Reflux of contrast into the I VC and hepatic veins suggesting degree of right heart failure again. Coronary artery calcifications a nd/or stents. MEDIASTINUM: No evidence of adenopathy. VASCULATURE: No aortic aneurysm. MUSCULOSKELETAL: No acute osseous abnormalities. Underlying levoconvex scoliosis and around the midth oracic spine redemonstrated. SOFT TISSUES/LYMPH NODES: Bilateral gynecomastia. LOWER NECK: No significant findings. UPPER ABDOMEN: Cortical thinning of both kidneys suggest chronic medical renal disease redemonstrated . Nonobstructive 3 mm left renal calculus. IMPRESSION: Near complete resolution of previously demonstrated nodular consolidation with residual trace consoli dation along the lateral left upper lobe. No new or enlarging pulmonary nodules.
== END | disposition home or self-care (01) ==
LOC: RADCTMAIN 12:01
PROVIDERS: ATTEND Family Medicine
DX: R91.8 Other nonspecific abnormal finding of lung field (principal)
CPT/HCPCS: 82565; 84520; 71260; 36415; Q9967

== ENCOUNTER 2023-02-08 18:41 | Observation (INO) | payer MEDICARE ==
[2023-02-08] MEDS ORDERED: NITROGLYCERIN OINT 1 INCH/GM PACKET TOPICAL STA (19:06)
[2023-02-08] MEDS ORDERED: ASPIRIN 81 MG PO STA (19:06)
--- NOTE | 2023-02-08 19:08 | ED ---
General Adult HPI - General Chief complaint: Chest Pain Stated complaint: chest pain Time Seen by Provider: 02/08/23 18:53 Source: patient, RN notes reviewed Mode of arrival: ambulatory Limitations: no limitations - History of Present Illness Initial comments: Patient is a pleasant 77-year-old male presenting to the emergency department with concerns of chest discomfort. Onset of symptoms was around 6 PM while doing yardwork. Discomfort was somewhat severe however is mild at this time. Discomfort feels like an ache. There was some radiation up towards the jaw. Discomfort did feel like previous cardiac issues that did require stenting. Patient was a little bit sweaty at the time. No nausea. No dyspnea. - Related Data Home Medications Medication Instructions Recorded Confirmed Calcium Carbonate [Calcium] 600 mg PO PC-LUNCH 01/08/17 10/22/22 Finasteride [Proscar] 5 mg PO HS 01/08/17 10/22/22 Levothyroxine Sodium [Synthroid] 150 mcg PO DAILY 01/08/17 10/22/22 Losartan [Cozaar] 12.5 mg PO HS 01/08/17 10/22/22 Multivitamins, Thera [Multivitamin 1 tab PO PC-LUNCH 01/08/17 10/22/22 (formulary)] Omeprazole 20 mg PO DAILY 01/08/17 10/22/22 Albuterol Nebulized [Ventolin 2.5 mg INHALATION RT-TID 09/16/22 10/22/22 Nebulized] Furosemide [Lasix] 40 mg PO DAILY 09/16/22 10/22/22 Albuterol Inhaler [Ventolin Hfa 1 puff INHALATION RT-Q6H PRN 10/22/22 10/22/22 Inhaler] Fluticasone/Umeclidin/Vilanter 1 puff INHALATION RT-DAILY 10/22/22 10/22/22 [Trelegy Ellipta 100-62.5-25] Latanoprost [Latanoprost 0.005%] 1 drop BOTH EYES HS 10/22/22 10/22/22 Timolol 0.5% Ophth Soln [Timoptic 1 drop BOTH EYES DAILY 10/22/22 10/22/22 0.5% Ophth Soln] predniSONE See Taper PO DIRECTED 10/22/22 10/22/22 Previous Rx's Medication Instructions Recorded Aspirin 81 mg PO DAILY tab 09/17/22 Atorvastatin [Lipitor] 80 mg PO DAILY #30 tab 09/17/22 Clopidogrel [Plavix] 75 mg PO DAILY #30 tab 09/17/22 Metoprolol Succinate (ER) [Toprol 50 mg PO DAILY #30 tab 09/17/22 XL] Nitroglycerin Sl Tabs [Nitrostat] 0.4 mg SUBLINGUAL Q5M PRN #25 tab 09/17/22 Spironolactone [Aldactone] 25 mg PO DAILY #30 tab 09/17/22 Allergies Allergy/AdvReac Type Severity Reaction Status Date / Time No Known Allergies Allergy Verified 02/08/23 20:41 Review of Systems ROS Statement: Those systems with pertinent positive or pertinent negative responses have been documented in the HPI. ROS Other: All systems not noted in ROS Statement are negative. Constitutional: Denies: fever Eyes: Denies: eye pain ENT: Denies: ear pain Respiratory: Denies: cough, dyspnea Cardiovascular: Reports: as per HPI, chest pain Endocrine: Denies: fatigue Gastrointestinal: Denies: abdominal pain Genitourinary: Denies: dysuria Musculoskeletal: Denies: back pain Past Medical History Past Medical History: GERD/Reflux, Hyperlipidemia, Hypertension, Myocardial Infarction (PR), Osteoarthritis (OA), Pneumonia, Prostate Disorder, Thyroid Disorder Additional Past Medical History / Comment(s): hx kidney stone, recent cough-now resolved, covid 08/27 Last Myocardial Infarction Date:: ? History of Any Multi-Drug Resistant Organisms: None Reported Past Surgical History: Heart Catheterization, Hernia Repair, Orthopedic Surgery Additional Past Surgical History / Comment(s): jackeline carpal tunnel, rt cataract. /umbilical hernia repair, kidney stone lithotripsy, carpal tunnel rt wrist. rt cataract, orif rt leg Past Anesthesia/Blood Transfusion Reactions: No Reported Reaction Past Psychological History: No Psychological Hx Reported Smoking Status: Former smoker Past Alcohol Use History: None Reported Past Drug Use History: None Reported - Past Family History Mother Family Medical History: Cancer Brother(s) Family Medical History: Cancer General Exam Limitations: no limitations General appearance: alert, in no apparent distress Head exam: Present: atraumatic Eye exam: Present: normal appearance Neck exam: Present: normal inspection Respiratory exam: Present: normal lung sounds bilaterally. Absent: chest wall tenderness Cardiovascular Exam: Present: regular rate, normal rhythm, normal heart sounds Expanded Peripheral pulses: 2+: Radial (R), Radial (L), Posterior Tibialis (R), Posterior Tibialis (L) GI/Abdominal exam: Present: soft. Absent: tenderness Extremities exam: Present: normal inspection. 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 Septal Q waves.), sinus rhythm (First AV block.), normal ST/T Medical Decision Making - Medical Decision Making Was pt. sent in by a medical professional or institution (, PA, OPERATOR RECEPTIONIST, urgent care, hospital, or detention...) When possible be specific @ -No Did you speak to anyone other than the patient for history (EMS, parent, family, police, friend...)? What history was obtained from this source @ -Family is present and helps provide history including history of previous cardiac disease and symptom onset Did you review nursing and triage notes (agree or disagree)? Why? @ -I reviewed and agree with nursing and triage notes Were old charts reviewed (outside hosp., previous admission, EMS record, old EKG, old radiological studies, urgent care reports/EKG's, detention records)? Report findings @ -No old charts were reviewed Differential Diagnosis (chest pain, altered mental status, abdominal pain women, abdominal pain men, vaginal bleeding, weakness, fever, dyspnea, syncope, headache, dizziness, GI bleed, back pain, seizure, CVA, palpatations, mental health)? @ -Differential Chest Pain: Stable Angina, Unstable Angina, STEMI, NSTEMI Aortic Dissection, Pneumothorax, Musculoskeletal, Esophageal Spasm GERD, Cholecystitis, Pancreatitis, Zoster, this is not meant to be an all-inclusive list. EKG interpreted by me (3pts min.). @ -As above X-rays interpreted by me (1pt min.). @ -None done CT interpreted by me (1pt min.). @ -Report reviewed U/S interpreted by me (1pt. min.). @ -None done What testing was considered but not performed or refused? (CT, X-rays, U/S, labs)? Why? @ -None What meds were considered but not given or refused? Why? @ -None Did you discuss the management of the patient with other professionals (professionals i.e. Dr., PA, OPERATOR RECEPTIONIST, lab, RT, psych nurse, social media designer, information operator, teacher, supervisory cbp officer, case management social worker)? Give summary @ -Case was discussed with practitioner Melissa Thomas, who will admit covering with Dr. Delong, who admits for Dr. Ascencio. Was smoking cessation discussed for >3mins.? @ -No Was critical care preformed (if so, how long)? @ -No Were there social determinants of health that impacted care today? How? (Homelessness, low income, unemployed, alcoholism, drug addiction, transportation, low edu. Level, literacy, decrease access to med. care, nursing home, rehab)? @ -No Was there de-escalation of care discussed even if they declined (Discuss DNR or withdrawal of care, Hospice)? DNR status @ -No What co-morbidities impacted this encounter? (DM, HTN, Smoking, COPD, CAD, Cancer, CVA, ARF, Chemo, Hep., AIDS, mental health diagnosis, sleep apnea, morbid obesity)? @ -None Was patient admitted / discharged? Hospital course, mention meds given and route, prescriptions, significant lab abnormalities, going to OR and other pertinent info. @ -Patient reevaluated and feels much better. Patient and family updated on results and plan. Patient will be admitted Undiagnosed new problem with uncertain prognosis? @ -No Drug Therapy requiring intensive monitoring for toxicity (Heparin, Nitro, Insulin, Cardizem)? @ -No Were any procedures done? @ -No Diagnosis/symptom? @ -Chest pain Acute, or Chronic, or Acute on Chronic? @ -Acute Uncomplicated (without systemic symptoms) or Complicated (systemic symptoms)? @ -default Side effects of treatment? @ -No Exacerbation, Progression, or Severe Exacerbation? @ -No Poses a threat to life or bodily function? How? (Chest pain, USA, PR, pneumonia, PE, COPD, DKA, ARF, appy, cholecystitis, CVA, Diverticulitis, Homicidal, Suicidal, threat to staff... and all critical care pts) @ -No - Lab Data Result diagrams: 02/08/23 19:08 02/08/23 19:08 Lab Results 02/08/23 02/08/23 02/08/23 Range/Units 19:08 19:08 19:08 WBC 10.3 (3.8-10.6) k/uL RBC 4.33 (4.30-5.90) m/uL Hgb 13.6 (13.0-17.5) gm/dL Hct 40.5 (39.0-53.0) % MCV 93.7 (80.0-100.0) fL MCH 31.5 (25.0-35.0) pg MCHC 33.6 (31.0-37.0) g/dL RDW 12.9 (11.5-15.5) % Plt Count 205 (150-450) k/uL MPV 8.5 Neutrophils % 77 % Lymphocytes % 12 % Monocytes % 8 % Eosinophils % 2 % Basophils % 0 % Neutrophils # 7.9 H (1.3-7.7) k/uL Lymphocytes # 1.2 (1.0-4.8) k/uL Monocytes # 0.8 (0-1.0) k/uL Eosinophils # 0.2 (0-0.7) k/uL Basophils # 0.0 (0-0.2) k/uL PT 10.6 (9.0-12.0) sec INR 1.0 (<1.2) APTT 22.4 (22.0-30.0) sec D-Dimer 1.40 H (<0.60) mg/L FEU Sodium 138 (137-145) mmol/L Potassium 4.1 (3.5-5.1) mmol/L Chloride 104 (98-107) mmol/L Carbon Dioxide 24 (22-30) mmol/L Anion Gap 10 mmol/L BUN 24 H (9-20) mg/dL Creatinine 0.94 (0.66-1.25) mg/dL Est GFR (CKD-EPI)AfAm >90 (>60 ml/min/1.73 sqM) Est GFR (CKD-EPI)NonAf 78 (>60 ml/min/1.73 sqM) Glucose 131 H (74-99) mg/dL Calcium 8.9 (8.4-10.2) mg/dL Magnesium 2.0 (1.6-2.3) mg/dL Total Bilirubin 0.9 (0.2-1.3) mg/dL AST 34 (17-59) U/L ALT 42 (4-49) U/L Alkaline Phosphatase 71 (38-126) U/L Troponin I (0.000-0.034) ng/mL Total Protein 6.7 (6.3-8.2) g/dL Albumin 4.1 (3.5-5.0) g/dL 02/08/23 Range/Units 19:08 WBC (3.8-10.6) k/uL RBC (4.30-5.90) m/uL Hgb (13.0-17.5) gm/dL Hct (39.0-53.0) % MCV (80.0-100.0) fL MCH (25.0-35.0) pg MCHC (31.0-37.0) g/dL RDW (11.5-15.5) % Plt Count (150-450) k/uL MPV Neutrophils % % Lymphocytes % % Monocytes % % Eosinophils % % Basophils % % Neutrophils # (1.3-7.7) k/uL Lymphocytes # (1.0-4.8) k/uL Monocytes # (0-1.0) k/uL Eosinophils # (0-0.7) k/uL Basophils # (0-0.2) k/uL PT (9.0-12.0) sec INR (<1.2) APTT (22.0-30.0) sec D-Dimer (<0.60) mg/L FEU Sodium (137-145) mmol/L Potassium (3.5-5.1) mmol/L Chloride (98-107) mmol/L Carbon Dioxide (22-30) mmol/L Anion Gap mmol/L BUN (9-20) mg/dL Creatinine (0.66-1.25) mg/dL Est GFR (CKD-EPI)AfAm (>60 ml/min/1.73 sqM) Est GFR (CKD-EPI)NonAf (>60 ml/min/1.73 sqM) Glucose (74-99) mg/dL Calcium (8.4-10.2) mg/dL Magnesium (1.6-2.3) mg/dL Total Bilirubin (0.2-1.3) mg/dL AST (17-59) U/L ALT (4-49) U/L Alkaline Phosphatase (38-126) U/L Troponin I <0.012 (0.000-0.034) ng/mL Total Protein (6.3-8.2) g/dL Albumin (3.5-5.0) g/dL Disposition Clinical Impression: Chest pain Disposition: ADMITTED IP TO THIS HOSP Is patient prescribed a controlled substance at d/c from ED?: No Referrals: Sixto Ascencio III, MD [Primary Care Provider] - 1-2 days Time of Disposition: 20:43
[2023-02-08 19:26] LABS: Basophils % (A) 0 %; Eosinophils # (A) 0.2 k/uL (0-0.7); Eosinophils % (A) 2 %; HCT 40.5 % (39.0-53.0); HGB 13.6 gm/dL (13.0-17.5); Lymphocytes # (A) 1.2 k/uL (1.0-4.8); Lymphocytes % (A) 12 %; MCH 31.5 pg (25.0-35.0); MCHC 33.6 g/dL (31.0-37.0); MCV 93.7 fL (80.0-100.0); Mean Platelet Volume 8.5; Monocytes # (A) 0.8 k/uL (0-1.0); Monocytes % (A) 8 %; Neutrophils # (A) 7.9 k/uL (1.3-7.7); Neutrophils % (A) 77 %; Platelet Count 205 k/uL (150-450); RBC 4.33 m/uL (4.30-5.90); RDW 12.9 % (11.5-15.5); WBC 10.3 k/uL (3.8-10.6)
--- NOTE | 2023-02-08 19:36 | XR ---
EXAMINATION TYPE: XR chest 2V DATE OF EXAM: 02/08/2023 7:16 PM COMPARISON: Chest radiographs from 10/22/2022 TECHNIQUE: XR chest 2V Frontal and lateral views of the chest. CLINICAL INDICATION:Male, 77 years old with history of Chest Pain; FINDINGS: Lungs/Pleura: Prominent interstitial lung markings are seen scattered throughout the lungs. No eviden ce of focal consolidation, pneumothorax or pleural effusion. Pulmonary vascularity: Unremarkable. Heart/mediastinum: Cardiomediastinal silhouette is unremarkable. Musculoskeletal: No acute osseous pathology. IMPRESSION: No acute cardiopulmonary disease/process.
[2023-02-08 19:40] LABS: ALT 42 U/L (4-49); AST 34 U/L (17-59); African American GFR (CKD) >90 (>60 ml/min/1.73 sqM); Albumin 4.1 g/dL (3.5-5.0); Alkaline Phosphatase 71 U/L (38-126); Anion Gap 10 mmol/L; Blood Urea Nitrogen 24 mg/dL (9-20); Calcium 8.9 mg/dL (8.4-10.2); Carbon Dioxide 24 mmol/L (22-30); Chloride 104 mmol/L (98-107); Glucose 131 mg/dL (74-99); Non-African American GFR(CKD) 78 (>60 ml/min/1.73 sqM); Potassium 4.1 mmol/L (3.5-5.1); Sodium 138 mmol/L (137-145); Total Bilirubin 0.9 mg/dL (0.2-1.3); Total Protein 6.7 g/dL (6.3-8.2)
[2023-02-08 19:41] LABS: Partial Thromboplastin Time 22.4 sec (22.0-30.0); Prothrombin Time 10.6 sec (9.0-12.0)
--- NOTE | 2023-02-08 20:33 | CT ---
EXAMINATION TYPE: CT angio chest CT DLP: 474.3 mGycm, Automated exposure control for dose reduction was used. DATE OF EXAM: 02/08/2023 8:19 PM COMPARISON: 09/17/2022 12/23/2022 CLINICAL INDICATION:Male, 77 years old with history of chest pain; Chest pain. Elevated D-dimer. TECHNIQUE/CONTRAST: CTA scan of the thorax is performed with IV Contrast, patient injected with 100cc mL of Isovue 370, p ulmonary embolism protocol. MIP images are created and reviewed these are created on a separate work station.. FINDINGS: Pulmonary Artery: There is no evidence for a filling defect within the pulmonary vasculature to sugge st acute pulmonary embolism. The pulmonary artery is of normal size. Lungs/Pleura: No evidence of focal consolidation, pleural effusion or pneumothorax. Airway: Large airways are patent. Heart: 1 the heart is enlarged for size. Atherosclerosis of the coronary arteries is mild to moderate . Vasculature: Mild atherosclerotic calcifications are present throughout the aorta and its branches. Mediastinum: No gross evidence of adenopathy. Small hiatal hernia. Musculoskeletal: No acute osseous abnormalities Soft Tissues: Increased density posterior to the nipples bilaterally consistent with gynecomastia. Lower neck: No significant findings. Upper Abdomen: Nonobstructing 4 mm renal calculus. IMPRESSION: 1. No evidence of pulmonary embolism. 2. Mild cardiomegaly. 3. Small hiatal hernia. 4. Nonobstructing left renal calculus measuring 4 mm. 5. Mild bilateral gynecomastia changes. 6. Mild atherosclerosis of the coronary arteries.
[2023-02-08] MEDS ORDERED: NITROGLYCERIN SL TABS 0.4 MG TAB SUBLINGUAL PRN (20:43)
[2023-02-08] MEDS ORDERED: ALBUTEROL NEBULIZED 2.5 MG/3 ML INHALATION PRN (22:21)
[2023-02-08] MEDS ORDERED: LATANOPROST 0.005% OPHTH DROPS 2.5 ML BTL BOTH EYES SCH (22:30)
[2023-02-08] MEDS: NITROGLYCERIN OINT 1 INCH/GM PACKET TOPICAL SCH (22:57)
[2023-02-09] MEDS: NITROGLYCERIN OINT 1 INCH/GM PACKET TOPICAL SCH ×2 (06:10→12:57)
[2023-02-09] MEDS ORDERED: LEVOTHYROXINE 75 MCG TAB PO SCH (06:30)
--- NOTE | 2023-02-09 07:19 | P.CRDCN ---
History of Present Illness Consult date: 02/09/23 Chief complaint: Chest pain History of present illness: The patient is a very pleasant 77-year-old gentleman with CAD and prior stenting of the LAD and not ischemic cardiomyopathy and valvular heart disease with mitral regurgitation likely secondary to cardiomyopathy/functional MR as well as hypertension and dyslipidemia presented to the hospital with chest discomfort. He was in his usual state of health when he was at home when he started experiencing discomfort in the middle of the chest as a sharp kind of discomfort/DISCOMFORT was no radiation and no specific symptoms of shortness of breath or sweating or presyncope or syncope or any feeling of heart racing or fluttering. The discomfort lasted for about 15 minutes and the time he arrived to the emergency department was chest pain-free. He was admitted and underwent further cardiac evaluation and workup including EKG showing sinus mechanism was nonspecific changes and also cardiac enzymes came in to be unremarkable and chest x-ray showed no acute abnormalities. He is chest pain-free when he was seen and evaluated this morning. Please note that he was seen and evaluated by our service recently in October 2022 where he underwent a heart catheterization at that point and that showed patent stent in the proximal left anterior descending artery was no other significant obstructive coronary artery disease. Also an echocardiogram was performed at that point and showed cardiomyopathy was EF between 35-40% with evidence of moderate to severe mitral regurgitation. The examination is remarkable for stable vital signs with regular rhythm and systolic murmur at the apical area. Assessment Chest discomfort which has resolved in 77-year-old gentleman who just underwent heart catheterization showing patent stent in the proximal left anterior descending artery. The cardiac enzymes are unremarkable during this admission Nonischemic cardiomyopathy Multiple comorbid conditions including hypertension and dyslipidemia Plan Acute coronary event was ruled out Getting the patient up and around. If he is asymptomatic he potentially can be discharged home Continue maximize medical treatment for cardiomyopathy Follow-up with the patient Past Medical History Past Medical History: GERD/Reflux, Hyperlipidemia, Hypertension, Myocardial Infarction (PR), Osteoarthritis (OA), Pneumonia, Prostate Disorder, Thyroid Disorder Additional Past Medical History / Comment(s): hx kidney stone, recent cough-now resolved, covid 08/27 Last Myocardial Infarction Date:: ? History of Any Multi-Drug Resistant Organisms: None Reported Past Surgical History: Heart Catheterization, Hernia Repair, Orthopedic Surgery Additional Past Surgical History / Comment(s): jackeline carpal tunnel, rt cataract. /umbilical hernia repair, kidney stone lithotripsy, carpal tunnel rt wrist. rt cataract, orif rt leg Past Anesthesia/Blood Transfusion Reactions: No Reported Reaction Past Psychological History: No Psychological Hx Reported Smoking Status: Former smoker Past Alcohol Use History: None Reported Additional Past Alcohol Use History / Comment(s): quit smoking 1989, started 1959, smoked 1ppd Past Drug Use History: None Reported - Past Family History Mother Family Medical History: Cancer Brother(s) Family Medical History: Cancer Medications and Allergies Home Medications Medication Instructions Recorded Confirmed Type Calcium Carbonate [Calcium] 600 mg PO DAILY 01/08/17 02/08/23 History Finasteride [Proscar] 5 mg PO DAILY 01/08/17 02/08/23 History Levothyroxine Sodium [Synthroid] 150 mcg PO DAILY 01/08/17 02/08/23 History Losartan [Cozaar] 12.5 mg PO HS 01/08/17 02/08/23 History Multivitamins, Thera [Multivitamin 1 tab PO DAILY 01/08/17 02/08/23 History (formulary)] Omeprazole 20 mg PO DAILY 01/08/17 02/08/23 History Albuterol Nebulized [Ventolin 2.5 mg INHALATION RT-TID 09/16/22 02/08/23 History Nebulized] Aspirin 81 mg PO DAILY tab 09/17/22 02/08/23 Rx Atorvastatin [Lipitor] 80 mg PO DAILY #30 tab 09/17/22 02/08/23 Rx Clopidogrel [Plavix] 75 mg PO DAILY #30 tab 09/17/22 02/08/23 Rx Nitroglycerin Sl Tabs [Nitrostat] 0.4 mg SUBLINGUAL Q5M PRN #25 tab 09/17/22 02/08/23 Rx Spironolactone [Aldactone] 25 mg PO DAILY #30 tab 09/17/22 02/08/23 Rx Albuterol Inhaler [Ventolin Hfa 1 puff INHALATION RT-Q6H PRN 10/22/22 02/08/23 History Inhaler] Fluticasone/Umeclidin/Vilanter 1 puff INHALATION RT-DAILY 10/22/22 02/08/23 History [Trelegy Ellipta 100-62.5-25] Latanoprost [Latanoprost 0.005%] 1 drop BOTH EYES HS 10/22/22 02/08/23 History Timolol 0.5% Ophth Soln [Timoptic 1 drop BOTH EYES DAILY 10/22/22 02/08/23 History 0.5% Ophth Soln] Ascorbic Acid [Vitamin C] 1,000 mg PO DAILY 02/08/23 02/08/23 History Furosemide [Lasix] 20 mg PO DAILY 02/08/23 02/08/23 History Metoprolol Succinate (ER) [Toprol 100 mg PO DAILY 02/08/23 02/08/23 History Xl] oxyCODONE-APAP 5-325MG [Percocet 1 tab PO DAILY 02/08/23 02/08/23 History 5-325 mg] Allergies Allergy/AdvReac Type Severity Reaction Status Date / Time No Known Allergies Allergy Verified 02/08/23 20:41 Physical Exam Vitals: Vital Signs Temp Pulse Pulse Pulse Resp BP BP 02/09/23 02:31 98.3 F 67 17 98/57 02/08/23 22:22 98.2 F 66 17 111/66 02/08/23 21:00 61 18 102/66 02/08/23 20:49 64 17 102/66 02/08/23 20:00 63 108/70 02/08/23 19:30 113/68 02/08/23 19:21 73 18 113/68 02/08/23 18:54 69 02/08/23 18:48 98.4 F 79 18 119/75 Pulse Ox 02/09/23 02:31 96 02/08/23 22:22 97 02/08/23 21:00 95 02/08/23 20:49 97 02/08/23 20:00 96 02/08/23 19:30 96 02/08/23 19:21 95 02/08/23 18:54 02/08/23 18:48 97 Intake and Output 02/08/23 02/09/23 02/09/23 22:59 06:59 14:59 Output Total 0 Balance 0 Output: Emesis 0 Other: Weight 92.986 kg Results 02/08/23 19:08 02/08/23 19:08 Cardiac Enzymes 02/08/23 02/08/23 02/08/23 Range/Units 19:08 19:08 22:18 AST 34 (17-59) U/L Troponin I <0.012 <0.012 (0.000-0.034) ng/mL 02/09/23 Range/Units 01:25 AST (17-59) U/L Troponin I <0.012 (0.000-0.034) ng/mL Coagulation 02/08/23 Range/Units 19:08 PT 10.6 (9.0-12.0) sec APTT 22.4 (22.0-30.0) sec CBC 02/08/23 Range/Units 19:08 WBC 10.3 (3.8-10.6) k/uL RBC 4.33 (4.30-5.90) m/uL Hgb 13.6 (13.0-17.5) gm/dL Hct 40.5 (39.0-53.0) % Plt Count 205 (150-450) k/uL Comprehensive Metabolic Panel 02/08/23 Range/Units 19:08 Sodium 138 (137-145) mmol/L Potassium 4.1 (3.5-5.1) mmol/L Chloride 104 (98-107) mmol/L Carbon Dioxide 24 (22-30) mmol/L BUN 24 H (9-20) mg/dL Creatinine 0.94 (0.66-1.25) mg/dL Glucose 131 H (74-99) mg/dL Calcium 8.9 (8.4-10.2) mg/dL AST 34 (17-59) U/L ALT 42 (4-49) U/L Alkaline Phosphatase 71 (38-126) U/L Total Protein 6.7 (6.3-8.2) g/dL Albumin 4.1 (3.5-5.0) g/dL Current Medications Generic Name Dose Route Start Last Admin Trade Name Freq PRN Reason Stop Dose Admin Albuterol Sulfate 2.5 mg 02/08/23 22:21 Albuterol Nebulized 2.5 Mg/3 Ml INHALATION RT-Q6H PRN Shortness Of Breath Albuterol/Ipratropium 3 ml 02/09/23 08:00 Ipratropium-Albuterol 3 Ml Neb INHALATION RT-QID [facility] Ascorbic Acid 1,000 mg 02/09/23 09:00 Ascorbic Acid 500 Mg Tab PO DAILY [facility] Aspirin 325 mg 02/09/23 09:00 Aspirin 325 Mg Tab PO DAILY [facility] Budesonide/Formoterol Fumarate 2 puff 02/09/23 08:00 Symbicort 80-4.5 Mcg Inhaler INHALATION RT-BID [facility] Calcium Carbonate/Glycine 500 mg 02/09/23 09:00 Calcium Carbonate 500 Mg Chewable PO DAILY [facility] Clopidogrel Bisulfate 75 mg 02/09/23 09:00 Clopidogrel 75 Mg Tab PO DAILY [facility] Finasteride 5 mg 02/09/23 09:00 Finasteride 5 Mg Tab PO DAILY [facility] Latanoprost 1 drops 02/08/23 22:30 02/08/23 22:56 Latanoprost 0.005% Ophth Drops 2.5 Ml Btl BOTH EYES 1 drops HS [facility] Administration Levothyroxine Sodium 150 mcg 02/09/23 06:30 02/09/23 06:10 Levothyroxine 75 Mcg Tab PO 150 mcg DAILY@0630 [facility] Administration Losartan Potassium 12.5 mg 02/09/23 21:00 Losartan 25 Mg Tab PO HS [facility] Metoprolol Succinate 100 mg 02/09/23 09:00 Metoprolol Succinate (Er) 100 Mg Tab.Er.24h PO DAILY [facility] Multivitamins 1 each 02/09/23 09:00 Multivitamins, Thera 1 Each Tab PO DAILY [facility] Nitroglycerin 0.4 mg 02/08/23 20:43 Nitroglycerin Sl Tabs 0.4 Mg Tab SUBLINGUAL Q5M PRN Chest Pain Nitroglycerin 1 inch 02/09/23 00:00 02/09/23 06:10 Nitroglycerin Oint 1 Inch/Gm Packet TOPICAL Not Given Q6HR [facility] Oxycodone/Acetaminophen 1 each 02/09/23 09:00 Oxycodone-Apap 5-325mg 1 Each Tab PO DAILY [facility] Pantoprazole Sodium 40 mg 02/09/23 07:30 02/09/23 06:11 Pantoprazole 40 Mg Tablet PO 40 mg [id number] [facility] Administration Spironolactone 25 mg 02/09/23 09:00 Spironolactone 25 Mg Tab PO DAILY [facility] Timolol Maleate 1 drops 02/09/23 09:00 Timolol 0.5% Ophth Drops 5 Ml Btl BOTH EYES DAILY [facility] Intake and Output 02/08/23 02/09/23 02/09/23 22:59 06:59 14:59 Output Total 0 Balance 0 Output: Emesis 0 Other: Weight 92.986 kg 02/08/23 19:08 02/08/23 19:08
[2023-02-09] MEDS ORDERED: PANTOPRAZOLE 40 MG TABLET PO SCH (07:30)
[2023-02-09] MEDS ORDERED: ALBUTEROL NEBULIZED 2.5 MG/3 ML INHALATION SCH (08:00)
[2023-02-09] MEDS ORDERED: SYMBICORT 80-4.5 MCG INHALER INHALATION SCH (08:00)
[2023-02-09] MEDS ORDERED: IPRATROPIUM 0.5 MG/2.5 ML NEBU INHALATION SCH (08:00)
[2023-02-09 08:26] VITALS: BP 103/55; RESP 16; TEMP 98.4
[2023-02-09] MEDS: IPRATROPIUM-ALBUTEROL 3 ML NEB INHALATION SCH ×2 (08:50→12:41)
[2023-02-09 08:54] VITALS: PULSE 64
[2023-02-09] MEDS ORDERED: oxyCODONE-APAP 5-325MG 1 EACH TAB PO SCH (09:00)
[2023-02-09] MEDS ORDERED: SPIRONOLACTONE 25 MG TAB PO SCH (09:00)
[2023-02-09] MEDS ORDERED: MULTIVITAMINS, THERA 1 EACH TAB PO SCH (09:00)
[2023-02-09] MEDS ORDERED: FINASTERIDE 5 MG TAB PO SCH (09:00)
[2023-02-09] MEDS ORDERED: CLOPIDOGREL 75 MG TAB PO SCH (09:00)
[2023-02-09] MEDS ORDERED: ASPIRIN 325 MG TAB PO SCH (09:00)
[2023-02-09] MEDS ORDERED: ASCORBIC ACID 500 MG TAB PO SCH (09:00)
[2023-02-09] MEDS ORDERED: CALCIUM CARBONATE 500 MG CHEWABLE PO SCH (09:00)
[2023-02-09] MEDS ORDERED: TIMOLOL 0.5% OPHTH DROPS 5 ML BTL BOTH EYES SCH (09:00)
[2023-02-09] MEDS ORDERED: METOPROLOL SUCCINATE (ER) 100 MG TAB.ER.24H PO SCH (09:00)
[2023-02-09 11:06] LABS: Chol/HDL Ratio 2.04 Ratio; LDL Cholesterol,Calculated 41.5 mg/dL; VLDL Calculation 16.18 mg/dL
--- NOTE | 2023-02-09 13:56 | HP ---
HISTORY AND PHYSICAL Combined history and physical and discharge summary. CHIEF COMPLAINT: Chest pain. HISTORY OF PRESENT ILLNESS: This is a 77-year-old gentleman with a past medical history of multiple medication allergies, chest pain, CAD with stenting with complaints of chest pain. Pain was felt in the anterior part of chest. The patient was evaluated by cardiology. Troponins are negative. D-dimer was elevated to 1.40, but a chest CTA done in the ER showed no evidence of any pulmonary embolism. There is no history of any fever, rigors, or chills. PAST MEDICAL HISTORY: CAD stent, rest of the history and rest of the chart is reviewed. MEDICATIONS: Cozaar, rest of the dose and rest of the medications reviewed. ALLERGIES: None. FAMILY HISTORY: Cancer in the family. SOCIAL HISTORY: Previous history of smoking. REVIEW OF SYSTEMS: A 14-point review is negative except as mentioned earlier. PHYSICAL EXAMINATION: VITAL SIGNS: Pulse 61, blood pressure 103/52, respirations 16. HEENT: Conjunctivae normal. NECK: No jugular venous distention. No carotid bruit. CARDIOVASCULAR: S1, S2 muffled. RESPIRATIONS: Clear to auscultation. ABDOMEN: Soft, nontender. LEGS: No edema. No swelling. NERVOUS SYSTEM: No focal deficit. LABS: Reviewed. ASSESSMENT: 1. Chest pain, possible unstable angina. 2. History of CAD, stenting. 3. Hypertension. 4. Hyperlipidemia. 5. Multiple medical issues. RECOMMENDATIONS: This 77-year-old gentleman presented with multiple medical issues at this time. He is medically stable. Cardiology saw the patient and recommended discharge home. I would recommend an outpatient stress test and resume the home medications. Continue the home medications, antiplatelet agents. Overall, prognosis is guarded, but currently the patient is medically stable and see discharge medication reconciliation for list of medications. Follow up with Dr. Ascencio and follow up with Cardiology as recommended. MMODL / IJN: [id number] /
[2023-02-09] MEDS ORDERED: LOSARTAN 25 MG TAB PO SCH (21:00)
== END 2023-02-09 13:29 | disposition home or self-care (01) ==
LOC: EC 18:41 → 6NMEDSUR 20:44
PROVIDERS: ADMIT Hospitalist; ATTEND Hospitalist
DX: I42.8 Other cardiomyopathies (principal); I25.10 Atherosclerotic heart disease of native coronary artery without angina pectoris; I10 Essential (primary) hypertension; E78.5 Hyperlipidemia, unspecified; K21.9 Gastro-esophageal reflux disease without esophagitis; I25.2 Old myocardial infarction; M19.90 Unspecified osteoarthritis, unspecified site; Z87.01 Personal history of pneumonia (recurrent); N42.9 Disorder of prostate, unspecified; E07.9 Disorder of thyroid, unspecified; Z87.442 Personal history of urinary calculi; Z86.16 Personal history of COVID-19; Z98.41 Cataract extraction status, right eye; Z98.890 Other specified postprocedural states; Z87.891 Personal history of nicotine dependence; Z80.9 Family history of malignant neoplasm, unspecified; Z79.02 Long term (current) use of antithrombotics/antiplatelets; Z79.82 Long term (current) use of aspirin; Z79.890 Hormone replacement therapy; Z79.899 Other long term (current) drug therapy
CPT/HCPCS: 99285; 36415; 94640 ×2; 85379; 80061; 80053; 83735; 84484 ×2; 85025; 85610; 85730; 71046; 71275; G0378 ×2; S0138; Q9967; 93005

== ENCOUNTER 2023-09-16 18:15 | Observation (INO) | payer MEDICARE ==
[2023-09-16] MEDS ORDERED: NITROGLYCERIN OINT 1 INCH/GM PACKET TOPICAL STA (18:59)
[2023-09-16 19:17] LABS: Basophils % (A) 0 %; Eosinophils # (A) 0.3 k/uL (0-0.7); Eosinophils % (A) 3 %; HCT 41.5 % (39.0-53.0); HGB 14.3 gm/dL (13.0-17.5); Lymphocytes # (A) 1.2 k/uL (1.0-4.8); Lymphocytes % (A) 13 %; MCH 32.3 pg (25.0-35.0); MCHC 34.5 g/dL (31.0-37.0); MCV 93.7 fL (80.0-100.0); Monocytes # (A) 0.7 k/uL (0-1.0); Monocytes % (A) 7 %; Neutrophils # (A) 7.1 k/uL (1.3-7.7); Neutrophils % (A) 75 %; Platelet Count 215 k/uL (150-450); RBC 4.43 m/uL (4.30-5.90); RDW 12.7 % (11.5-15.5); WBC 9.5 k/uL (3.8-10.6)
[2023-09-16 19:27] LABS: ALT 44 U/L (4-49); AST 35 U/L (17-59); African American GFR (CKD) 83 (>60 ml/min/1.73 sqM); Albumin 4.4 g/dL (3.5-5.0); Alkaline Phosphatase 74 U/L (38-126); Anion Gap 13 mmol/L; Blood Urea Nitrogen 26 mg/dL (9-20); Calcium 9.6 mg/dL (8.4-10.2); Carbon Dioxide 26 mmol/L (22-30); Chloride 101 mmol/L (98-107); Glucose 147 mg/dL (74-99); Magnesium 1.9 mg/dL (1.6-2.3); Non-African American GFR(CKD) 72 (>60 ml/min/1.73 sqM); Potassium 3.9 mmol/L (3.5-5.1); Sodium 140 mmol/L (137-145); Total Bilirubin 1.1 mg/dL (0.2-1.3); Total Protein 7.1 g/dL (6.3-8.2)
[2023-09-16 19:36] LABS: Partial Thromboplastin Time 23.1 sec (22.0-30.0); Prothrombin Time 10.7 sec (10.0-12.5)
--- NOTE | 2023-09-16 19:37 | XR ---
EXAMINATION TYPE: XR chest 2V DATE OF EXAM: 09/16/2023 7:17 PM CLINICAL INDICATION:Male, 78 years old with history of Chest Pain; [facility] COMPARISON: 02/08/2023 TECHNIQUE: XR chest 2V. Frontal and lateral views of the chest.. Lines/Tubes/Devices: EKG leads overlie the chest. No indwelling lines are seen. Heart/mediastinum: Heart size upper normal. Mediastinum appears stable. Mildly tortuous partially c alcified aorta. Pulmonary vascularity: Not increased, Lungs/Pleura: Prominent interstitial lung markings are seen scattered throughout the lungs. No eviden ce of focal consolidation, pneumothorax or pleural effusion. Musculoskeletal: No acute osseous abnormality demonstrated in the limits of the exam. Other findings: None. IMPRESSION: No acute process or significant interval change.
--- NOTE | 2023-09-16 20:26 | ED ---
Chest Pain HPI - General Chief Complaint: Chest Pain Stated Complaint: Chest pain Time Seen by Provider: 09/16/23 18:53 Source: patient Mode of arrival: ambulatory Limitations: no limitations - History of Present Illness Initial Comments: This 78-year-old male presents with complaint of some chest pain. He states that he has had this approximate 4 times over the last month. He states that he had a just shortly prior to arrival. It is resolved at this point time. He relates that it lasted approximately a minute neck. There is a pressure type sensation over the bilateral chest radiating into the bilateral jaw. He denies any shortness of breath. There is no leg pain or swelling. No history of DVT or PE. He does relate a history of previous known coronary artery disease and had a stent placed approximately one year ago. He has had intermittent chest pains over the past year and has been checked out by cardiology with no definitive cause. He was told that he does have another artery that likely will need stenting in the future. He denies any other complaints or modifying factors. - Related Data Home Medications Medication Instructions Recorded Confirmed Calcium Carbonate [Calcium] 600 mg PO DAILY 01/08/17 02/08/23 Finasteride [Proscar] 5 mg PO DAILY 01/08/17 02/08/23 Levothyroxine Sodium [Synthroid] 150 mcg PO DAILY 01/08/17 02/08/23 Losartan [Cozaar] 12.5 mg PO HS 01/08/17 02/08/23 Multivitamins, Thera [Multivitamin 1 tab PO DAILY 01/08/17 02/08/23 (formulary)] Omeprazole 20 mg PO DAILY 01/08/17 02/08/23 Albuterol Nebulized [Ventolin 2.5 mg INHALATION RT-TID 09/16/22 02/08/23 Nebulized] Albuterol Inhaler [Ventolin Hfa 1 puff INHALATION RT-Q6H PRN 10/22/22 02/08/23 Inhaler] Fluticasone/Umeclidin/Vilanter 1 puff INHALATION RT-DAILY 10/22/22 02/08/23 [Trelegy Ellipta 100-62.5-25] Latanoprost [Latanoprost 0.005%] 1 drop BOTH EYES HS 10/22/22 02/08/23 Timolol 0.5% Ophth Soln [Timoptic 1 drop BOTH EYES DAILY 10/22/22 02/08/23 0.5% Ophth Soln] Ascorbic Acid [Vitamin C] 1,000 mg PO DAILY 02/08/23 02/08/23 Furosemide [Lasix] 20 mg PO DAILY 02/08/23 02/08/23 Metoprolol Succinate (ER) [Toprol 100 mg PO DAILY 02/08/23 02/08/23 XL] oxyCODONE-APAP 5-325MG [Percocet 1 tab PO DAILY 02/08/23 02/08/23 5-325 mg] Previous Rx's Medication Instructions Recorded Aspirin 81 mg PO DAILY tab 09/17/22 Atorvastatin [Lipitor] 80 mg PO DAILY #30 tab 09/17/22 Clopidogrel [Plavix] 75 mg PO DAILY #30 tab 09/17/22 Nitroglycerin Sl Tabs [Nitrostat] 0.4 mg SUBLINGUAL Q5M PRN #25 tab 09/17/22 Spironolactone [Aldactone] 25 mg PO DAILY #30 tab 09/17/22 Allergies Allergy/AdvReac Type Severity Reaction Status Date / Time No Known Allergies Allergy Verified 02/08/23 20:41 Review of Systems ROS Statement: Those systems with pertinent positive or pertinent negative responses have been documented in the HPI. ROS Other: All systems not noted in ROS Statement are negative. Past Medical History Past Medical History: GERD/Reflux, Hyperlipidemia, Hypertension, Myocardial Infarction (DC), Osteoarthritis (OA), Pneumonia, Prostate Disorder, Thyroid Disorder Additional Past Medical History / Comment(s): hx kidney stone, recent cough-now resolved, covid 08/27 Last Myocardial Infarction Date:: ? History of Any Multi-Drug Resistant Organisms: None Reported Past Surgical History: Heart Catheterization, Heart Catheterization With Stent, Hernia Repair, Orthopedic Surgery Additional Past Surgical History / Comment(s): jackeline carpal tunnel, rt cataract. /umbilical hernia repair, kidney stone lithotripsy, carpal tunnel rt wrist. rt cataract, orif rt leg Past Anesthesia/Blood Transfusion Reactions: No Reported Reaction Past Psychological History: No Psychological Hx Reported Smoking Status: Former smoker Past Alcohol Use History: None Reported Past Drug Use History: None Reported - Past Family History Mother Family Medical History: Cancer Brother(s) Family Medical History: Cancer General Exam - General Exam Comments Initial Comments: GENERAL: The patient is well nourished and well hydrated. VITAL SIGNS: Heart rate, blood pressure, respiratory rate reviewed as recorded in nurse's notes. EYES: Pupils are round and reactive. Extraocular movements are intact. No conjunctival / lid redness or swelling. ENT: No external evidence of injury, swelling, or ecchymosis. Airway is patent. Throat is clear. NECK: Nontender. No swelling or evidence of injury. No subcutaneous emphysema. Trachea is midline. No thyroid mass. HEART: Regular rate and rhythm. Good peripheral pulses. LUNGS/CHEST: Breath sounds clear and equal bilaterally. No rales, rhonchi, or wheezes. No ecchymosis, subcutaneous emphysema, or tenderness. ABDOMEN: Abdomen soft without tenderness. No palpable masses or organomegaly. No peritoneal signs. No abdominal wall swelling or ecchymosis. EXTREMITIES: No extremity tenderness. Normal muscle tone and function. No thoracolumbar tenderness. NEUROLOGIC: Sensation is grossly intact. Cranial nerve exam reveals face is symmetrical, tongue is midline, speech is clear. SKIN: No abrasions or ecchymosis is noted. No induration or masses noted. PSYCHIATRIC: Alert and oriented. Appropriate behavior and judgment. Limitations: no limitations Course Vital Signs 09/16/23 09/16/23 18:24 20:41 Temperature 98 F 98.7 F Pulse Rate 85 72 Respiratory 16 16 Rate Blood Pressure 128/67 114/74 O2 Sat by Pulse 98 98 Oximetry Chest Pain MDM - MDM The patient was seen and examined. All diagnostics are reviewed. He is placed on a Cardizem monitor no ectopy is identified. The EKG shows a normal sinus rhythm at a rate of 81. There is no acute ST or T wave changes noted from my interpretation. The intervals are essentially within normal limits. The chest x-ray does not show any acute abnormalities per my interpretation. The cardiac profile labs are all essentially within normal limits. Patient receives aspirin as well as Nitropaste. It is felt as though the patient would benefit from admission to the hospital for further cardiology workup. He made potentially need stress test or heart catheterization. Patient is agreeable. Case is discussed with Dr. Rivera and he is agreeable with admission. Cardiology will be consulted. Disposition Clinical Impression: Unstable angina pectoris, Chest pain, History of coronary artery disease, H istory of coronary artery stent placement Disposition: ADMITTED IP TO THIS HOSP Condition: Fair Is patient prescribed a controlled substance at d/c from ED?: No Time of Disposition: 20:47 Decision Date: 09/16/23 Decision Time: 20:47
[2023-09-16] MEDS ORDERED: NITROGLYCERIN SL TABS 0.4 MG TAB SUBLINGUAL PRN ×2 (20:48→22:57)
[2023-09-16] MEDS ORDERED: ALBUTEROL NEBULIZED 2.5 MG/3 ML INHALATION PRN (22:57)
[2023-09-16] MEDS ORDERED: oxyCODONE-APAP 5-325MG 1 EACH TAB PO PRN (22:57)
[2023-09-17] MEDS: NITROGLYCERIN OINT 1 INCH/GM PACKET TOPICAL SCH ×3 (02:12→12:22)
--- NOTE | 2023-09-17 04:18 | P.HPIM ---
History of Present Illness H&P Date: 09/16/23 Chief Complaint: chest pain 78 year old male with COPD not on home oxygen , CAD s/p stent one year ago coming in for chest pain started at 5 pm while working in the garage, described as chest pressure across the chest radiating to the jaw, 7/10 in severity , no SOB, no sweating, no nausea no vomiting, no palpitations, no dizziness, he spoke with his ec teacher who recommended that he goes to the ED for evaluation. As he has experienced 3 more attacks this month, usually while sleeping that wakes him up from sleep, but easily resolved with one or two doses of nitro . he denies any recent hospital stay, DVT history or cancer, no recent travel. denies any URI symptoms fever, chills, cough, abd pain , changes in bowel or urinary habits, he claims to be compliant with his meds. he currently is asymptomatic denies tobacco smoking , illicit drugs or alcohol review of systems Pertinent positives as noted in HPI. All other systems were reviewed and are negative on exam Constitutional: No acute distress, conversant, pleasant Eyes: Anicteric sclerae, moist conjunctiva, Pupils equal round reactive to light ENMT: NC/AT Oropharynx clear, no erythema, or exudates Neck: Supple, no masses, or JVD No carotid bruits No thyromegaly Lungs: Clear to auscultation Clear to percussion Normal respiratory effort, no accessory muscle use Cardiovascular: Heart regular in rate and rhythm, No murmurs, gallops, or rubs No peripheral edema Abdominal: Soft Nontender, no guarding, rebound or rigidity Abdomen moving with respiration Normoactive bowel sounds No hepatomegaly, No splenomegaly No palpable mass No abdominal wall hernia noted Skin: Normal temperature, tone, texture, turgor No induration No subcutaneous nodules No rash, lesions No ulcers Extremities: No digital cyanosis No clubbing Pedal pulses intact and symmetrical Radial pulses intact and symmetrical No calf tenderness Psychiatric: Alert and oriented to person, place and time Appropriate affect fair judgement Neuro Muscles Strength 5/5 in all 4 extremities Sensation to light touch grossly present throughout Cranial nerves II-XII grossly intact Lymphatics: no palpable cervical or supraclavicular lymph nodes Past Medical History Past Medical History: GERD/Reflux, Hyperlipidemia, Hypertension, Myocardial Infarction (MD), Osteoarthritis (OA), Pneumonia, Prostate Disorder, Thyroid Disorder Additional Past Medical History / Comment(s): hx kidney stone, recent cough-now resolved, covid 08/27 Last Myocardial Infarction Date:: ? History of Any Multi-Drug Resistant Organisms: None Reported Past Surgical History: Heart Catheterization, Heart Catheterization With Stent, Hernia Repair, Orthopedic Surgery Additional Past Surgical History / Comment(s): jackeline carpal tunnel, rt cataract. /umbilical hernia repair, kidney stone lithotripsy, carpal tunnel rt wrist. rt cataract, orif rt leg Past Anesthesia/Blood Transfusion Reactions: No Reported Reaction Past Psychological History: No Psychological Hx Reported Smoking Status: Former smoker Past Alcohol Use History: None Reported Past Drug Use History: None Reported - Past Family History Mother Family Medical History: Cancer Brother(s) Family Medical History: Cancer Medications and Allergies Home Medications Medication Instructions Recorded Confirmed Type Calcium Carbonate [Calcium] 600 mg PO HS 01/08/17 09/16/23 History Finasteride [Proscar] 5 mg PO DAILY 01/08/17 09/16/23 History Multivitamins, Thera [Multivitamin 1 tab PO DAILY 01/08/17 09/16/23 History (formulary)] Omeprazole 20 mg PO DAILY 01/08/17 09/16/23 History Aspirin 81 mg PO DAILY tab 09/17/22 09/16/23 Rx Clopidogrel [Plavix] 75 mg PO DAILY #30 tab 09/17/22 09/16/23 Rx Nitroglycerin Sl Tabs [Nitrostat] 0.4 mg SUBLINGUAL Q5M PRN #25 tab 09/17/22 09/16/23 Rx Albuterol Inhaler [Ventolin Hfa 2 puff INHALATION RT-Q6H PRN 10/22/22 09/16/23 History Inhaler] Fluticasone/Umeclidin/Vilanter 1 puff INHALATION RT-DAILY 10/22/22 09/16/23 History [Trelegy Ellipta 100-62.5-25] Latanoprost [Latanoprost 0.005%] 1 drop BOTH EYES HS 10/22/22 09/16/23 History Timolol 0.5% Ophth Soln [Timoptic 1 drop BOTH EYES BID 10/22/22 09/16/23 History 0.5% Ophth Soln] Ascorbic Acid [Vitamin C] 1,000 mg PO DAILY 02/08/23 09/16/23 History Furosemide [Lasix] 20 mg PO DAILY 02/08/23 09/16/23 History Metoprolol Succinate (ER) [Toprol 100 mg PO DAILY 02/08/23 09/16/23 History XL] oxyCODONE-APAP 5-325MG [Percocet 1 tab PO BID PRN 02/08/23 09/16/23 History 5-325 mg] Atorvastatin [Lipitor] 80 mg PO HS 09/16/23 09/16/23 History Levothyroxine Sodium [Synthroid] 175 mcg PO DAILY 09/16/23 09/16/23 History Montelukast [Singulair] 10 mg PO HS 09/16/23 09/16/23 History Spironolactone [Aldactone] 12.5 mg PO DAILY 09/16/23 09/16/23 History lisinopriL [Zestril] 2.5 mg PO DAILY 09/16/23 09/16/23 History Allergies Allergy/AdvReac Type Severity Reaction Status Date / Time No Known Allergies Allergy Verified 09/16/23 21:07 Physical Exam Vitals: Vital Signs Temp Pulse Resp BP Pulse Ox 09/16/23 18:24 98 F 85 16 128/67 98 Intake and Output 09/16/23 09/16/23 09/16/23 06:59 14:59 22:59 Other: Weight 90.718 kg Results CBC & Chem 7: 09/16/23 19:06 09/16/23 19:06 Labs: Abnormal Lab Results - Last 24 Hours (Table) 09/16/23 Range/Units 19:06 BUN 26 H (9-20) mg/dL Glucose 147 H (74-99) mg/dL Assessment and Plan Assessment: 78 year old male with CAD s/p stent one year ago , coming in for recurrent episodes of chest pain , I discussed the case with ED doc and I accepted the admission for chest pain with anginal picture to rule out ACS with anticpated length of stay < 2 midnights chest pain with typical features rule out ACS trops negative EKG no acute ST changes CXR no acute pathology ekg monitor tech monitor vital signs resume aspirin , statin nitro PRN hypertension controlle d continue lisinopril and metoprolol continue aldactone COPD compensated resume inhalers continue symbicort hypothyroid resume levothyroxin BPH continue finasteride and flomax No code DVT PPX lovenox sc 40 mg daily blood work unremarkable WBC 9 Hgb 14 BUN 26 Cr 1 Na 140 K 3.9
[2023-09-17] MEDS ORDERED: LEVOTHYROXINE 88 MCG TAB PO SCH (06:30)
[2023-09-17] MEDS ORDERED: PANTOPRAZOLE 40 MG TABLET PO SCH (07:30)
[2023-09-17] MEDS ORDERED: SYMBICORT 80-4.5 MCG INHALER INHALATION SCH (08:00)
[2023-09-17 08:39] LABS: Chol/HDL Ratio 1.85 Ratio; LDL Cholesterol,Calculated 43.8 mg/dL (0.0-131.0); VLDL Calculation 10.54 mg/dL (5.00-40.00)
[2023-09-17] MEDS: IPRATROPIUM 0.5 MG/2.5 ML NEBU INHALATION SCH ×2 (08:41→12:04)
[2023-09-17] MEDS ORDERED: AMINOPHYLLINE 500 MG/20 ML VIAL IV PRN (08:57)
[2023-09-17] MEDS ORDERED: CAFFEINE CITRATE 60 MG/3 ML VIAL IV PRN (08:57)
[2023-09-17] MEDS ORDERED: REGADENOSON 0.4 MG/5 ML SYRINGE IV PRN (08:57)
[2023-09-17] MEDS ORDERED: MULTIVITAMINS, THERA 1 EACH TAB PO SCH (09:00)
[2023-09-17] MEDS ORDERED: CLOPIDOGREL 75 MG TAB PO SCH (09:00)
[2023-09-17] MEDS ORDERED: FINASTERIDE 5 MG TAB PO SCH (09:00)
[2023-09-17] MEDS ORDERED: TIMOLOL 0.5% OPHTH DROPS 5 ML BTL BOTH EYES SCH (09:00)
[2023-09-17] MEDS ORDERED: METOPROLOL SUCCINATE (ER) 100 MG TAB.ER.24H PO SCH (09:00)
[2023-09-17] MEDS ORDERED: ASPIRIN 325 MG TAB PO SCH (09:00)
[2023-09-17] MEDS ORDERED: FUROSEMIDE 20 MG TAB PO SCH (09:00)
[2023-09-17] MEDS ORDERED: ENOXAPARIN 40 MG/0.4 ML SYRINGE SQ SCH (09:00)
[2023-09-17] MEDS ORDERED: ASCORBIC ACID 500 MG TAB PO SCH (09:00)
[2023-09-17] MEDS ORDERED: SPIRONOLACTONE 25 MG TAB PO SCH (09:00)
--- NOTE | 2023-09-17 10:21 | P.CRDCN ---
History of Present Illness Consult date: 09/17/23 Consult reason: chest pain History of present illness: HISTORY OF PRESENT ILLNESS: This is a 78-year-old male with a past medical history significant for coronary artery disease with stenting of the LAD in September 2022, ischemic cardiomyopathy , valvular heart disease with mitral regurgitation secondary to cardiomyopathy/functional MR as well as hypertension, hyperlipidemia, COPD and former nicotine dependence. Patient follows in the office with Dr. Jerome. We have been asked to see the patient in consultation for chest pain. Patient presented to the emergency center due to chest pain that he has had about 4 occasions over the past month. He had an episode yesterday but had resolved by the time he arrived to the emergency center. He describes it as a pressure type sensation. Patient has been started on Nitro-Bid ointment which may have helped his chest pain. Patient has been provided the option of cardiac catheterization versus stress test and he has decided to undergo a stress test today.. EKG reveals sinus mechanism with no signs of acute ischemia. Chest xray negative for acute process CBC unremarkable. INR is 1. Dr. zarco normal. BUN 26 creatinine 1. Blood sugar 147. Magnesium 1.9. Troponin negative 3. Liver function tests are normal. Current home cardiac medications include aspirin 81 mg daily, atorvastatin 80 mg daily, Plavix 75 mg daily, Lasix 20 mg daily, lisinopril 2.5 mg daily, metoprolol succinate 100 mg daily, and Aldactone 12.5 mg daily Most recent echocardiogram obtained in October 2022 revealed dilated left ventricle with severe impairment of the left ventricular function with EF of 30-35%, moderate severe mitral regurgitation, mild aortic and tricuspid regurgitation. Cardiac catheterization history: October 2022 revealed patent stent in the proximal LAD. Elevated left sided filling pressure. Cardiac catheterization September 2022 with stenting of the LAD. Patient was found to have mild disease involving the left circumflex and nondominant right coronary artery. REVIEW OF SYSTEMS: At the time of my exam: CONSTITUTIONAL: Denies fever or chills. HEENT: Denies blurred vision, vision changes, or eye pain. Denies hemoptysis CARDIOVASCULAR: Denies chest pain. Denies orthopnea. Denies PND. Denies palpitations RESPIRATORY: Denies shortness of breath. GASTROINTESTINAL: Denies abdominal pain. Denies nausea or vomiting. HEMATOLOGIC: Denies bleeding disorders. GENITOURINARY: Denies any blood in urine. SKIN: Denies pruitis. Denies rash. PHYSICAL EXAM: VITAL SIGNS: Reviewed. GENERAL: Well-developed in no acute distress. HEENT: Head is normocephalic. Pupils are equal, round. Sclerae anicteric. Mucous membranes of the mouth are moist. Neck supple. No JVD or thyromegaly LUNGS: Respirations even and unlabored. Lungs essentially clear to auscultation bilaterally. HEART: Regular rate and rhythm. S1 and S2 heard. ABDOMEN: Soft. Nondistended. Nontender. EXTREMITIES: Normal range of motion. No clubbing or cyanosis. Peripheral pulses intact. No lower extremity edema NEUROLOGIC: Awake and alert. Oriented x 3. ASSESSMENT: Chest pain, Coronary artery disease with stenting to LAD, 09/16/2022 Ischemic cardiomyopathy, EF 40% Hypertension Hyperlipidemia Former nicotine dependence PLAN: Resume home cardiac medications Continue nitro paste 2D echocardiogram Patient will be scheduled for Lexiscan stress test today If stress test and echocardiogram are unremarkable, patient is cleared for discharge home May follow-up with Dr. Jerome in 2 weeks. Nurse practitioner note has been reviewed by physician. Signing provider agrees with the documented findings, assessment, and plan of care. Past Medical History Past Medical History: GERD/Reflux, Hyperlipidemia, Hypertension, Myocardial Infarction (CT), Osteoarthritis (OA), Pneumonia, Prostate Disorder, Thyroid Disorder Additional Past Medical History / Comment(s): hx kidney stone, recent cough-now resolved, covid 08/27 Last Myocardial Infarction Date:: ? History of Any Multi-Drug Resistant Organisms: None Reported Past Surgical History: Heart Catheterization, Heart Catheterization With Stent, Hernia Repair, Orthopedic Surgery Additional Past Surgical History / Comment(s): jackeline carpal tunnel, rt cataract. /umbilical hernia repair, kidney stone lithotripsy, carpal tunnel rt wrist. rt cataract, orif rt leg Past Anesthesia/Blood Transfusion Reactions: No Reported Reaction Date of Last Stent Placement:: 09/16/2021 Past Psychological History: No Psychological Hx Reported Smoking Status: Former smoker Past Alcohol Use History: None Reported Past Drug Use History: None Reported - Past Family History Mother Family Medical History: Cancer Brother(s) Family Medical History: Cancer Medications and Allergies Home Medications Medication Instructions Recorded Confirmed Type Calcium Carbonate [Calcium] 600 mg PO HS 01/08/17 09/16/23 History Finasteride [Proscar] 5 mg PO DAILY 01/08/17 09/16/23 History Multivitamins, Thera [Multivitamin 1 tab PO DAILY 01/08/17 09/16/23 History (formulary)] Omeprazole 20 mg PO DAILY 01/08/17 09/16/23 History Aspirin 81 mg PO DAILY tab 09/17/22 09/16/23 Rx Clopidogrel [Plavix] 75 mg PO DAILY #30 tab 09/17/22 09/16/23 Rx Nitroglycerin Sl Tabs [Nitrostat] 0.4 mg SUBLINGUAL Q5M PRN #25 tab 09/17/22 09/16/23 Rx Albuterol Inhaler [Ventolin Hfa 2 puff INHALATION RT-Q6H PRN 10/22/22 09/16/23 History Inhaler] Fluticasone/Umeclidin/Vilanter 1 puff INHALATION RT-DAILY 10/22/22 09/16/23 History [Trelegy Ellipta 100-62.5-25] Latanoprost [Latanoprost 0.005%] 1 drop BOTH EYES HS 10/22/22 09/16/23 History Timolol 0.5% Ophth Soln [Timoptic 1 drop BOTH EYES BID 10/22/22 09/16/23 History 0.5% Ophth Soln] Ascorbic Acid [Vitamin C] 1,000 mg PO DAILY 02/08/23 09/16/23 History Furosemide [Lasix] 20 mg PO DAILY 02/08/23 09/16/23 History Metoprolol Succinate (ER) [Toprol 100 mg PO DAILY 02/08/23 09/16/23 History XL] oxyCODONE-APAP 5-325MG [Percocet 1 tab PO BID PRN 02/08/23 09/16/23 History 5-325 mg] Atorvastatin [Lipitor] 80 mg PO HS 09/16/23 09/16/23 History Levothyroxine Sodium [Synthroid] 175 mcg PO DAILY 09/16/23 09/16/23 History Montelukast [Singulair] 10 mg PO HS 09/16/23 09/16/23 History Spironolactone [Aldactone] 12.5 mg PO DAILY 09/16/23 09/16/23 History lisinopriL [Zestril] 2.5 mg PO DAILY 09/16/23 09/16/23 History Allergies Allergy/AdvReac Type Severity Reaction Status Date / Time No Known Allergies Allergy Verified 09/16/23 21:07 Physical Exam Vitals: Vital Signs Temp Pulse Pulse Resp BP BP Pulse Ox 09/17/23 07:00 98.6 F 68 15 95/51 94 L 09/17/23 02:00 75 09/17/23 00:10 97.4 F L 75 16 113/68 98 09/16/23 20:41 98.7 F 72 16 114/74 98 09/16/23 18:24 98 F 85 16 128/67 98 Intake and Output 09/16/23 09/17/23 09/17/23 22:59 06:59 14:59 Other: Voiding Method Toilet # Voids 2 Weight 90.718 kg 90.718 kg Results 09/16/23 19:06 09/16/23 19:06 Cardiac Enzymes 09/16/23 09/16/23 09/16/23 Range/Units 19:06 19:06 22:19 AST 35 (17-59) U/L Troponin I <0.012 <0.012 (0.000-0.034) ng/mL 09/17/23 Range/Units 01:37 AST (17-59) U/L Troponin I <0.012 (0.000-0.034) ng/mL Coagulation 09/16/23 Range/Units 19:06 PT 10.7 (10.0-12.5) sec APTT 23.1 (22.0-30.0) sec CBC 09/16/23 Range/Units 19:06 WBC 9.5 (3.8-10.6) k/uL RBC 4.43 (4.30-5.90) m/uL Hgb 14.3 (13.0-17.5) gm/dL Hct 41.5 (39.0-53.0) % Plt Count 215 (150-450) k/uL Comprehensive Metabolic Panel 09/16/23 Range/Units 19:06 Sodium 140 (137-145) mmol/L Potassium 3.9 (3.5-5.1) mmol/L Chloride 101 (98-107) mmol/L Carbon Dioxide 26 (22-30) mmol/L BUN 26 H (9-20) mg/dL Creatinine 1.00 (0.66-1.25) mg/dL Glucose 147 H (74-99) mg/dL Calcium 9.6 (8.4-10.2) mg/dL AST 35 (17-59) U/L ALT 44 (4-49) U/L Alkaline Phosphatase 74 (38-126) U/L Total Protein 7.1 (6.3-8.2) g/dL Albumin 4.4 (3.5-5.0) g/dL Current Medications Generic Name Dose Route Start Last Admin Trade Name Freq PRN Reason Stop Dose Admin Albuterol Sulfate 2.5 mg 09/16/23 22:57 Albuterol Nebulized 2.5 Mg/3 Ml INHALATION RT-Q6H PRN Shortness Of Breath Ascorbic Acid 1,000 mg 09/17/23 09:00 Ascorbic Acid 500 Mg Tab PO DAILY [facility] Aspirin 325 mg 09/17/23 09:00 Aspirin 325 Mg Tab PO DAILY [facility] Atorvastatin Calcium 80 mg 09/17/23 21:00 Atorvastatin 80 Mg Tab PO HS [facility] Budesonide/Formoterol Fumarate 2 puff 09/17/23 08:00 Symbicort 80-4.5 Mcg Inhaler INHALATION RT-BID [facility] Calcium Carbonate/Glycine 500 mg 09/17/23 21:00 Calcium Carbonate 500 Mg Chewable PO HS [facility] Clopidogrel Bisulfate 75 mg 09/17/23 09:00 Clopidogrel 75 Mg Tab PO DAILY [facility] Enoxaparin Sodium 40 mg 09/17/23 09:00 Enoxaparin 40 Mg/0.4 Ml Syringe SQ DAILY [facility] Finasteride 5 mg 09/17/23 09:00 Finasteride 5 Mg Tab PO DAILY [facility] Furosemide 20 mg 09/17/23 09:00 Furosemide 20 Mg Tab PO DAILY [facility] Ipratropium [place] 0.5 mg 09/17/23 08:00 Ipratropium 0.5 Mg/2.5 Ml Nebu INHALATION RT-QID [facility] Latanoprost 1 drops 09/17/23 21:00 Latanoprost 0.005% Ophth Drops 2.5 Ml Btl BOTH EYES HS [facility] Levothyroxine Sodium 176 mcg 09/17/23 06:30 09/17/23 06:05 Levothyroxine 88 Mcg Tab PO 176 mcg DAILY@0630 [facility] Administration Lisinopril 2.5 mg 09/17/23 09:00 Lisinopril 2.5 Mg Tab PO DAILY [facility] Metoprolol Succinate 100 mg 09/17/23 09:00 Metoprolol Succinate (Er) 100 Mg Tab.Er.24h PO DAILY [facility] Montelukast Sodium 10 mg 09/17/23 21:00 Montelukast 10 Mg Tab PO HS [facility] Multivitamins 1 each 09/17/23 09:00 Multivitamins, Thera 1 Each Tab PO DAILY [facility] Nitroglycerin 0.4 mg 09/16/23 20:48 Nitroglycerin Sl Tabs 0.4 Mg Tab SUBLINGUAL Q5M PRN Chest Pain Nitroglycerin 1 inch 09/17/23 00:00 09/17/23 05:41 Nitroglycerin Oint 1 Inch/Gm Packet TOPICAL Not Given Q6HR [facility] Oxycodone/Acetaminophen 1 each 09/16/23 22:57 Oxycodone-Apap 5-325mg 1 Each Tab PO BID PRN Pain Pantoprazole Sodium 40 mg 09/17/23 07:30 09/17/23 06:06 Pantoprazole 40 Mg Tablet PO 40 mg AC-BRKFST [facility] Administration Spironolactone 12.5 mg 09/17/23 09:00 Spironolactone 25 Mg Tab PO DAILY [facility] Timolol Maleate 1 drops 09/17/23 09:00 Timolol 0.5% Ophth Drops 5 Ml Btl BOTH EYES BID [facility] Intake and Output 09/16/23 09/17/23 09/17/23 22:59 06:59 14:59 Other: Voiding Method Toilet # Voids 2 Weight 90.718 kg 90.718 kg 09/16/23 19:06 09/16/23 19:06
--- NOTE | 2023-09-17 11:29 | CA ---
Transthoracic Echo Report Name: Surya Byers Age: 78 Gender: M : 1945 Exam Date: 09/17/2023 08:57 Exam Location: [place] [facility] Ht (in): 66 Wt (lb): 200 Ordering Physician: Pb Romero DO Attending/Referring Phys: Heather DC Plant Tech Alysa Montgomery RDCS Procedure CPT: Indications: CP Cardiac Hx: Technical Quality: Fair Contrast 1: Total Dose (mL): Contrast 2: Total Dose (mL): MEASUREMENTS (Male / Female) Normal Values 2D ECHO LV Diastolic Diameter PLAX 6.2 cm 4.2 - 5.9 / 3.9 - 5.3 cm LV Systolic Diameter PLAX 5.3 cm IVS Diastolic Thickness 1.2 cm 0.6 - 1.0 / 0.6 - 0.9 cm LVPW Diastolic Thickness 1.1 cm 0.6 - 1.0 / 0.6 - 0.9 cm LV Relative Wall Thickness 0.4 RV Internal Dim ED PLAX 3.7 cm LV Diastolic Volume MOD BP 154.0 cm??? 67 - 155 / 56 - 104 cm??? LV Systolic Volume MOD BP 100.9 cm??? 22 - 58 / 19 - 49 cm??? LV Ejection Fraction MOD BP 34.5 % >= 55 % LV Cardiac Index MOD BP 1779.0 cm???/min???m??? LV Diastolic Volume MOD 4C 171.9 cm??? LV Systolic Volume MOD 4C 99.7 cm??? LV Ejection Fraction MOD 4C 42.0 % LV Cardiac Index MOD 4C 2419.8 cm???/min???m??? LV Diastolic Length 4C 8.3 cm LV Systolic Length 4C 7.6 cm LV Diastolic Volume MOD 2C 138.0 cm??? LV Systolic Volume MOD 2C 102.4 cm??? LV Ejection Fraction MOD 2C 25.8 % LV Cardiac Index MOD 2C 1195.7 cm???/min???m??? LV Diastolic Length 2C 8.1 cm LV Systolic Length 2C 7.8 cm LA Volume 107.9 cm??? 18 - 58 / 22 - 52 cm??? LA Volume Index 51.7 cm???/m??? 16 - 28 cm???/m??? M-MODE Aortic Root Diameter MM 2.9 cm LA Systolic Diameter MM 4.0 cm LA Ao Ratio MM 1.4 AV Cusp Separation MM 1.9 cm DOPPLER AV Peak Velocity 130.3 cm/s AV Peak Gradient 6.8 mmHg AV Mean Velocity 96.1 cm/s AV Mean Gradient 4.0 mmHg AV Velocity Time Integral 28.9 cm AI Peak Velocity 398.0 cm/s AI Peak Gradient 63.4 mmHg AI Pressure Half Time 613.2 ms LVOT Peak Velocity 71.6 cm/s LVOT Peak Gradient 2.0 mmHg LVOT Velocity Time Integral 14.7 cm TR Peak Velocity 234.2 cm/s TR Peak Gradient 21.9 mmHg Right Ventricular Systolic Press 26.9 mmHg FINDINGS Left Ventricle Mildly increased septal wall thickness. Mildly increased left ventricular diastolic diameter. Severely increased left ventricular systolic volume. Moderately decreased left ventricular ejection fraction. Left ventricular ejection fraction is estimated at 35-40 %. Right Ventricle Right ventricular dilatation. Right ventricular systolic pressure within normal limits. Right Atrium Normal right atrial size. Left Atrium Severely increased left atrial volume. Mildly increased left atrial area. Mitral Valve Mitral valve thickened. Moderate mitral annular calcification. Moderate mitral regurgitation. Aortic Valve Trileaflet aortic valve. Thickened aortic valve without stenosis. Mild aortic regurgitation. Tricuspid Valve Structurally normal tricuspid valve. Mild tricuspid regurgitation. Pulmonic Valve Trace pulmonic regurgitation. Pericardium No pericardial effusion. Aorta Normal size aortic root and proximal ascending aorta. CONCLUSIONS Moderate to severe LV systolic dysfunction with an ejection fraction of 35% Dilated left ventricle Moderate mitral regurgitation Mild aortic regurgitation Previewed by: Dr. Umberto Byrnes MD (Electronically Signed) Final Date: 17 September 2023 11:11
--- NOTE | 2023-09-17 12:45 | NM ---
EXAMINATION TYPE: NM stress lexiscan cardiolite DATE OF EXAM: 09/17/2023 COMPARISON: 12/18/2016 CLINICAL INDICATION: Male, 78 years old with history of chest pain; TECHNIQUE: After the intravenous administration of 10.6 mCi Tc 99m Sestamibi - Cardiolite resting SP ECT images acquired 45 minutes post injection. The patient received 0.4mg Lexiscan, 26.1 mCi Tc 99m Sestamibi - Stress images obtained [address] injection FINDINGS: Review of stress and rest SPECT images demonstrates moderate size perfusion defect involving the mid and apical inferior wall. Small fixed perfusion defect mid to basal anterior and anteroseptal wall. T here appears to be left ventricular chamber enlargement. No distinct reversibility is seen. Gated adolph lysis shows marked global hypokinesis with an estimated left ventricular ejection fraction of only 22 %. TID is calculated at 1.04, within normal limits. IMPRESSION: 1. 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 2. Left ventricular dilatation and markedly diminished LVEF of 22%. Correlate for ischemic cardiomyop athy. 3. No discrete reversibility identified at this time.
--- NOTE | 2023-09-17 14:25 | P.DS ---
Providers Date of admission: 09/16/23 20:48 Expected date of discharge: 09/17/23 Attending physician: Nandini Rivera MD Consults: 09/16/23 20:48 Consult Physician Urgent Consulting Provider: Gavin Jerome Consult Reason/Comments: cp Do you want consulting provider notified?: Yes [facility] [place] [facility] Course: Discharge Diagnosis: Chest pain, ACS ruled out History of CAD status post and Ischemic cardiomyopathy Mitral regurgitation Hypertension Dyslipidemia Hospital Course: 78-year-old male with history of CAD status post stent, ischemic cardiomyopathy, valvular heart disease, hypertension, dyslipidemia, COPD presenting with chest pain. Vital signs within normal limits. EKG showed sinus rhythm with first- degree AV block, Q waves in anteroseptal leads. Laboratory workup mostly unremarkable. Troponin negative 3. ACS ruled out. Cardiology consulted. Echocardiogram shows LVEF about 35%, moderate mitral regurgitation, not much different from prior echo. Stress test shows old infarcts mid apical inferior wall and mid to basal anteroseptal wall. No discrete reversibility identified. Patient being discharged home with follow-up with cardiology. Patient seen and examined at bedside. Vital signs reviewed and stable. General: nontoxic, no distress, appears at stated age Derm: warm, dry Head: atraumatic, normocephalic, symmetric Eyes: EOMI, no lid lag, anicteric sclera Mouth: no lip lesion, mucus membranes moist Cardiovascular: S1S2 reg, no murmur Lungs: CTA bilateral, no rhonchi, no rales , no accessory muscle use Abdominal: soft, nontender to palpation, no guarding, no appreciable organomegaly Ext: no gross muscle atrophy, no edema, no contractures Neuro: CN II-XI grossly intact, no focal neuro deficits Psych: Alert, oriented, appropriate affect A total of 33 minutes of time were spent preparing this complex discharge summary. Patient was discharged on 09/17/23 at 1424. Patient Condition at Discharge: Stable Plan - Discharge Summary Discharge Rx Participant: No New Discharge Prescriptions: Continue Omeprazole 20 mg PO DAILY Finasteride [Proscar] 5 mg PO DAILY Multivitamins, Thera [Multivitamin (formulary)] 1 tab PO DAILY Calcium Carbonate [Calcium] 600 mg PO HS Aspirin 81 mg PO DAILY tab Clopidogrel [Plavix] 75 mg PO DAILY #30 tab Timolol 0.5% Ophth Soln [Timoptic 0.5% Ophth Soln] 1 drop BOTH EYES BID Latanoprost [Latanoprost 0.005%] 1 drop BOTH EYES HS Fluticasone/Umeclidin/Vilanter [Trelegy Ellipta 100-62.5-25] 1 puff INHALATION RT-DAILY oxyCODONE-APAP 5-325MG [Percocet 5-325 mg] 1 tab PO BID PRN PRN Reason: Pain Ascorbic Acid [Vitamin C] 1,000 mg PO DAILY Metoprolol Succinate (ER) [Toprol XL] 100 mg PO DAILY Atorvastatin [Lipitor] 80 mg PO HS Montelukast [Singulair] 10 mg PO HS Spironolactone [Aldactone] 12.5 mg PO DAILY Nitroglycerin Sl Tabs [Nitrostat] 0.4 mg SUBLINGUAL Q5M PRN #25 tab PRN Reason: Chest Pain Albuterol Inhaler [Ventolin Hfa Inhaler] 2 puff INHALATION RT-Q6H PRN PRN Reason: Shortness Of Breath Furosemide [Lasix] 20 mg PO DAILY Levothyroxine Sodium [Synthroid] 175 mcg PO DAILY lisinopriL [Zestril] 2.5 mg PO DAILY Discharge Medication List Calcium Carbonate [Calcium] 600 mg PO HS 01/08/17 [History] Finasteride [Proscar] 5 mg PO DAILY 01/08/17 [History] Multivitamins, Thera [Multivitamin (formulary)] 1 tab PO DAILY 01/08/17 [History] Omeprazole 20 mg PO DAILY 01/08/17 [History] Aspirin 81 mg PO DAILY tab 09/17/22 [Rx] Clopidogrel [Plavix] 75 mg PO DAILY #30 tab 09/17/22 [Rx] Nitroglycerin Sl Tabs [Nitrostat] 0.4 mg SUBLINGUAL Q5M PRN #25 tab 09/17/22 [Rx] Albuterol Inhaler [Ventolin Hfa Inhaler] 2 puff INHALATION RT-Q6H PRN 10/22/22 [History] Fluticasone/Umeclidin/Vilanter [Trelegy Ellipta 100-62.5-25] 1 puff INHALATION RT-DAILY 10/22/22 [History] Latanoprost [Latanoprost 0.005%] 1 drop BOTH EYES HS 10/22/22 [History] Timolol 0.5% Ophth Soln [Timoptic 0.5% Ophth Soln] 1 drop BOTH EYES BID 10/22/22 [History] Ascorbic Acid [Vitamin C] 1,000 mg PO DAILY 02/08/23 [History] Furosemide [Lasix] 20 mg PO DAILY 02/08/23 [History] Metoprolol Succinate (ER) [Toprol XL] 100 mg PO DAILY 02/08/23 [History] oxyCODONE-APAP 5-325MG [Percocet 5-325 mg] 1 tab PO BID PRN 02/08/23 [History] Atorvastatin [Lipitor] 80 mg PO HS 09/16/23 [History] Levothyroxine Sodium [Synthroid] 175 mcg PO DAILY 09/16/23 [History] Montelukast [Singulair] 10 mg PO HS 09/16/23 [History] Spironolactone [Aldactone] 12.5 mg PO DAILY 09/16/23 [History] lisinopriL [Zestril] 2.5 mg PO DAILY 09/16/23 [History] Follow up Appointment(s)/Referral(s): Gavin Jerome MD [STAFF PHYSICIAN] - 1 Week Patient Instructions/Handouts: Chest Pain (DC) Activity/Diet/Wound Care/Special Instructions: 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 Discharge Disposition: HOME SELF-CARE
[2023-09-17 15:53] VITALS: BP 110/61; PULSE 70; RESP 16; TEMP 97.7
--- NOTE | 2023-09-17 17:02 | CA ---
Lexiscan Nuclear Stress Test Report Name: Surya Byers Exam Date: 09/17/2023 10:34 Exam Location: [place] Stress Ht (in): 66 Wt (lb): 200 BSA: 2.00 Ordering Phys: Camille Beard Referring Phys: CAMILLE BEARD,, Technologist: ADRIANA WHITING Age: 78 Gender: M : 1945 Procedure CPT: Indications: Reflex order-Stress test ICD-10 Codes: Patient History: CP, ANGINA, NUMBNESS FACE/NECK, HTN, CHOL, FAMILY HX, NC, CATH, COPD Medications: SEE CHART Meds past 24 hrs: Pretest Chest Pain: STRESS TEST Lexiscan Protocol Exercise Duration (min:sec): 01:[address] Depressions (mm): Angina Score: Palma Score: Resting HR (bpm): 71 Peak HR (bpm): 92 Resting BP (mmHg): 116 / 68 Peak BP (mmHg): 119 / 68 MPHR: 142 Target HR: 121 % MPHR: 65 METS: 1.0 Total Dose: Peak Dose: Atropine: Double Product: 32899 BP Response: Stress Termination: Reached target heart rate Stress Symptoms: Dizziness, Dyspnea Stress Summary: ECG ANALYSIS Resting ECG: Normal sinus rhythm normal axis normal intervals Stress ECG: Patient was given intravenous Lexiscan as a protocol did not have chest pain or diagnostic ST segment depression CONCLUSIONS Negative stress test by EKG criteria Cardiolite portion of the stress test will be reported separately Dr. Umberto Byrnes MD (Electronically Signed) Final Date: 17 September 2023 17:01
[2023-09-17] MEDS ORDERED: CALCIUM CARBONATE 500 MG CHEWABLE PO SCH (21:00)
[2023-09-17] MEDS ORDERED: ATORVASTATIN 80 MG TAB PO SCH (21:00)
[2023-09-17] MEDS ORDERED: MONTELUKAST 10 MG TAB PO SCH (21:00)
[2023-09-17] MEDS ORDERED: LATANOPROST 0.005% OPHTH DROPS 2.5 ML BTL BOTH EYES SCH (21:00)
== END 2023-09-17 15:35 | disposition home or self-care (01) ==
LOC: EC 18:15 → 6NMEDSUR 20:48
PROVIDERS: ADMIT Internal Medicine; ATTEND Internal Medicine
DX: R07.89 Other chest pain (principal); I25.10 Atherosclerotic heart disease of native coronary artery without angina pectoris; K21.9 Gastro-esophageal reflux disease without esophagitis; E78.5 Hyperlipidemia, unspecified; I10 Essential (primary) hypertension; I25.5 Ischemic cardiomyopathy; J44.9 Chronic obstructive pulmonary disease, unspecified; N40.0 Benign prostatic hyperplasia without lower urinary tract symptoms; E03.9 Hypothyroidism, unspecified; I34.0 Nonrheumatic mitral (valve) insufficiency; I25.2 Old myocardial infarction; Z87.891 Personal history of nicotine dependence; Z95.5 Presence of coronary angioplasty implant and graft; Z79.890 Hormone replacement therapy; Z79.02 Long term (current) use of antithrombotics/antiplatelets; Z79.51 Long term (current) use of inhaled steroids; Z79.82 Long term (current) use of aspirin; Z79.899 Other long term (current) drug therapy
CPT/HCPCS: 96372; 99285; 36415; 93005; 93017; 93306; 80061; 80053; 83735; 84484 ×2; 85025; 85610; 85730; 71046; 78452; G0378 ×2; A9500; S0138; J1650; J2785

== ENCOUNTER 2023-12-28 13:26 | Inpatient (IN) | payer MEDICARE ==
[2023-12-28 14:31] LABS: Basophils % (A) 1 %; Eosinophils # (A) 0.4 k/uL (0-0.7); Eosinophils % (A) 5 %; HGB 13.6 gm/dL (13.0-17.5); Lymphocytes # (A) 1.1 k/uL (1.0-4.8); Lymphocytes % (A) 15 %; MCH 30.6 pg (25.0-35.0); MCHC 33.2 g/dL (31.0-37.0); MCV 92.3 fL (80.0-100.0); Monocytes # (A) 0.7 k/uL (0-1.0); Monocytes % (A) 9 %; Neutrophils # (A) 5.2 k/uL (1.3-7.7); Neutrophils % (A) 69 %; Platelet Count 226 k/uL (150-450); RBC 4.44 m/uL (4.30-5.90); RDW 12.2 % (11.5-15.5); WBC 7.6 k/uL (3.8-10.6)
[2023-12-28 14:48] LABS: ALT 30 U/L (4-49); AST 32 U/L (17-59); African American GFR (CKD) >90 (>60 ml/min/1.73 sqM); Alkaline Phosphatase 75 U/L (38-126); Anion Gap 3 mmol/L; Blood Urea Nitrogen 22 mg/dL (9-20); Calcium 9.6 mg/dL (8.4-10.2); Carbon Dioxide 28 mmol/L (22-30); Chloride 106 mmol/L (98-107); Glucose 113 mg/dL (74-99); Non-African American GFR(CKD) 87 (>60 ml/min/1.73 sqM); Potassium 4.3 mmol/L (3.5-5.1); Sodium 137 mmol/L (137-145); Total Bilirubin 1.2 mg/dL (0.2-1.3); Total Protein 6.8 g/dL (6.3-8.2)
--- NOTE | 2023-12-28 15:05 | ED ---
Dizziness HPI - General Source: patient, RN notes reviewed Mode of arrival: ambulatory <Jayla Meneses - Last Filed: 12/28/23 15:02> - History of Present Illness MD Complaint: dizziness, lightheadedness, difficulty walking -: days(s) Timing: sudden onset Description: "room spinning", lightheadedness, off-balance, difficulty walking History of Same: No History of Trauma: No Severity: mild Improves With: nothing Worsens With: nothing Associated Symptoms: ataxia <Jurgen Jackson - Last Filed: 12/28/23 18:54> - General Chief Complaint: Dizziness Stated Complaint: Dizziness,Vision issues Time Seen by Provider: 12/28/23 13:40 - History of Present Illness Initial Comments: Jimmy corona is a 78-year-old male who presents the emergency department the chief complaint of dizziness. Patient states that he was in his kitchen on Wednesday afternoon when he had a lightheaded sensation associated with mild blurry vision. Patient states that since this time he has felt "off'. Patient has also been experiencing low blood pressure. Denies history of MT, CVA. (Jayla Meneses) This is a 78-year-old male to the ER for evaluation of significant dizziness starting Wednesday afternoon room spinning type activity and off balance. He also noted some lightheadedness and blurry vision and since then symptoms have persisted. Feel well he feels off balance feels off in general. Patient did have a headache but that is now resolved. Patient otherwise has no chest pain shortness of breath or other complaints. No recent fever or illness. (Jurgen Jackson) - Related Data Home Medications Medication Instructions Recorded Confirmed Calcium Carbonate [Calcium] 600 mg PO HS 01/08/17 12/28/23 Finasteride [Proscar] 5 mg PO DAILY 01/08/17 12/28/23 Multivitamins, Thera [Multivitamin 1 tab PO DAILY 01/08/17 12/28/23 (formulary)] Omeprazole 20 mg PO DAILY 01/08/17 12/28/23 Albuterol Inhaler [Ventolin Hfa 1 puff INHALATION RT-Q6H PRN 10/22/22 12/28/23 Inhaler] Fluticasone/Umeclidin/Vilanter 1 puff INHALATION RT-DAILY 10/22/22 12/28/23 [Trelegy Ellipta 100-62.5-25] Latanoprost [Latanoprost 0.005%] 1 drop BOTH EYES HS 10/22/22 12/28/23 Timolol 0.5% Ophth Soln [Timoptic 1 drop BOTH EYES BID 10/22/22 12/28/23 0.5% Ophth Soln] Ascorbic Acid [Vitamin C] 1,000 mg PO DAILY 02/08/23 12/28/23 Furosemide [Lasix] 20 mg PO DAILY 02/08/23 12/28/23 Metoprolol Succinate (ER) [Toprol 100 mg PO DAILY 02/08/23 12/28/23 XL] oxyCODONE-APAP 5-325MG [Percocet 1 tab PO DAILY PRN 02/08/23 12/28/23 5-325 mg] Atorvastatin [Lipitor] 80 mg PO HS 09/16/23 12/28/23 Levothyroxine Sodium [Synthroid] 175 mcg PO DAILY 09/16/23 12/28/23 Montelukast [Singulair] 10 mg PO HS 09/16/23 12/28/23 Spironolactone [Aldactone] 12.5 mg PO DAILY 09/16/23 12/28/23 lisinopriL [Zestril] 2.5 mg PO DAILY 09/16/23 12/28/23 Albuterol Nebulized [Ventolin 2.5 mg INHALATION RT-TID PRN 12/28/23 12/28/23 Nebulized] Isosorbide Mononitrate ER [Imdur] 30 mg PO DAILY 12/28/23 12/28/23 Previous Rx's Medication Instructions Recorded Aspirin 81 mg PO DAILY tab 09/17/22 Nitroglycerin Sl Tabs [Nitrostat] 0.4 mg SUBLINGUAL Q5M PRN #25 tab 09/17/22 Allergies Allergy/AdvReac Type Severity Reaction Status Date / Time No Known Allergies Allergy Verified 12/28/23 17:05 Review of Systems ROS Other: All systems not noted in ROS Statement are negative. <Jayla Meneses - Last Filed: 12/28/23 15:02> ROS Other: All systems not noted in ROS Statement are negative. <Jurgen Jackson - Last Filed: 12/28/23 18:54> ROS Statement: Those systems with pertinent positive or pertinent negative responses have been documented in the HPI. Past Medical History Past Medical History: GERD/Reflux, Hyperlipidemia, Hypertension, Myocardial Infarction ([place]), Osteoarthritis (OA), Pneumonia, Prostate Disorder, Thyroid Disorder Additional Past Medical History / Comment(s): hx kidney stone, recent cough-now resolved, covid 08/27 Last Myocardial Infarction Date:: ? History of Any Multi-Drug Resistant Organisms: None Reported Past Surgical History: Heart Catheterization, Heart Catheterization With Stent, Hernia Repair, Orthopedic Surgery Additional Past Surgical History / Comment(s): jackeline carpal tunnel, rt cataract. /umbilical hernia repair, kidney stone lithotripsy, carpal tunnel rt wrist. rt cataract, orif rt leg Past Anesthesia/Blood Transfusion Reactions: No Reported Reaction Date of Last Stent Placement:: 09/16/2021 Past Psychological History: No Psychological Hx Reported Smoking Status: Former smoker Past Alcohol Use History: None Reported Past Drug Use History: None Reported - Past Family History Mother Family Medical History: Cancer Brother(s) Family Medical History: Cancer <Jayla Meneses - Last Filed: 12/28/23 15:02> General Exam <Jayla Meneses - Last Filed: 12/28/23 15:02> General appearance: alert, in no apparent distress Head exam: Present: atraumatic, normocephalic, normal inspection Eye exam: Present: normal appearance, PERRL, EOMI. Absent: scleral icterus, conjunctival injection, periorbital swelling ENT exam: Present: normal exam, mucous membranes moist Neck exam: Present: normal inspection. Absent: tenderness, meningismus, lymphadenopathy Respiratory exam: Present: normal lung sounds bilaterally. Absent: respiratory distress, wheezes, rales, rhonchi, stridor Cardiovascular Exam: Present: regular rate, normal rhythm, normal heart sounds. Absent: systolic murmur, diastolic murmur, rubs, gallop, clicks GI/Abdominal exam: Present: soft, normal bowel sounds. Absent: distended, tenderness, guarding, rebound, rigid Extremities exam: Present: normal inspection, full ROM, normal capillary refill. Absent: tenderness, pedal edema, joint swelling, calf tenderness Back exam: Present: normal inspection Neurological exam: Present: alert, oriented X3, CN II-XII intact Psychiatric exam: Present: normal affect, normal mood Skin exam: Present: warm, dry, intact, normal color. Absent: rash <Jurgen Jackson - Last Filed: 12/28/23 18:54> - General Exam Comments Initial Comments: Visual Physical Exam Vital signs reviewed General: Well-appearing, nontoxic, no acute distress. Head: Normocephalic, atraumatic Eyes: PERRLA, EOMI ENT: Airway patent Chest: Nonlabored breathing Skin: No visual rash, normal skin tone Neuro: Alert and oriented 3 Musculoskeletal: No gross abnormalities (Stieler,Jayla) Course <Jurgen Jackson - Last Filed: 12/28/23 18:54> Vital Signs 12/28/23 12/28/23 13:56 18:19 Temperature 97 F L Pulse Rate 74 62 Respiratory 18 16 Rate Blood Pressure 125/71 107/62 O2 Sat by Pulse 96 97 Oximetry - Reevaluation(s) Reevaluation #1: 12/28/23 18:53 Medical records reviewed (Jurgen Jackson) Reevaluation #2: 12/28/23 18:53 Patient symptoms are persistent (Jurgen Jackson) Reevaluation #3: 12/28/23 18:53 Patient informed of results and questions were answered (Jurgen Jackson) Reevaluation #4: Was pt. sent in by a medical professional or institution (, PA, PLASTERER JOURNEYMAN, urgent care, hospital, or alf...) When possible be specific @ -no Did you speak to anyone other than the patient for history (EMS, parent, family, police, friend...)? What history was obtained from this source @ -no Did you review nursing and triage notes (agree or disagree)? Why? @ -agree Are old charts reviewed (outside hosp., previous admission, EMS record, old EKG, old radiological studies, urgent care reports/EKG's, alf records)? Report findings @ -yes Differential Diagnosis (chest pain, altered mental status, abdominal pain women, abdominal pain men, vaginal bleeding, weakness, fever, dyspnea, syncope, headache, dizziness, GI bleed, back pain, seizure, CVA, palpatations, mental health, musculoskeletal)? @ -prior EKG interpreted by me (3pts min.). @ -yes X-rays interpreted by me (1pt min.). @ -yes negative for acute disease CT interpreted by me (1pt min.). @ -no U/S interpreted by me (1pt. min.). @ -no What testing was considered but not performed or refused? (CT, X-rays, U/S, labs)? Why? @ -none What meds were considered but not given or refused? Why? @ -none Did you discuss the management of the patient with other professionals (rachel chairezfepaulette i.e. , PA, PLASTERER JOURNEYMAN, lab, RT, psych nurse, group social worker, harvest contractor, teacher, parking enforcement officer, medical case worker)? Give summary @ -no Was smoking cessation discussed for >3mins.? @ -no Was critical care preformed (if so, how long)? @ -no Were there social determinants of health that impacted care today? How? (Homelessness, low income, unemployed, alcoholism, drug addiction, transportation, low edu. Level, literacy, decrease access to med. care, skilled nursing, rehab)? @ -none Was there de-escalation of care discussed even if they declined (Discuss DNR or withdrawal of care, Hospice)? DNR status @ -no What co-morbidities impacted this encounter? (DM, HTN, Smoking, COPD, CAD, Cancer, CVA, ARF, Chemo, Hep., AIDS, mental health diagnosis, sleep apnea, morbid obesity)? @ -none Was patient admitted / discharged? Hospital course, mention meds given and route, prescriptions, significant lab abnormalities, going to OR and other pertinent info. @ - Undiagnosed new problem with uncertain prognosis? @ -no Drug Therapy requiring intensive monitoring for toxicity (Heparin, Nitro, Insulin, Cardizem)? @ -no Were any procedures done? @ -no Diagnosis/symptom? @ - Acute, or Chronic, or Acute on Chronic? @ -Acute Uncomplicated (without systemic symptoms) or Complicated (systemic symptoms)? @ -Complicated Side effects of treatment? @ -no Exacerbation, Progression, or Severe Exacerbation? @ -exacerbation Poses a threat to life or bodily function? How? (Chest pain, USA, MT, pneumonia, PE, COPD, DKA, ARF, appy, cholecystitis, CVA, Diverticulitis, Homicidal, Suicidal, threat to staff... and all critical care pts) @ -yes (Jurgen Jackson) Reevaluation #5: Differential Dizziness: Benign paroxysmal positional Vertigo, Menieres disease, otitis media, acoustic neuroma, vertebrobasilar insufficiency, cerebellar stroke, encephalitis, hypovolemic, arrhythmia, coronary artery syndrome, anemia, this is not meant to be an all-inclusive list (Jurgen Jackson) - Consultations Consultation #1: Spoke with sound who agrees to admit this patient (Jurgen Jackson) Medical Decision Making - Lab Data Result diagrams: 12/28/23 14:20 12/28/23 14:20 <Jayla Meneses - Last Filed: 12/28/23 15:02> - Lab Data Result diagrams: 12/28/23 14:20 12/28/23 14:20 - Radiology Data Radiology results: report reviewed (CT brain is negative for acute disease), image reviewed <Jurgen Jackson - Last Filed: 12/28/23 18:54> - Medical Decision Making I completed the quick note portion of this chart signed Jayla Meneses PA-C (Jayla Meneses) 78 male will be admitted for CVA with vertiginous symptoms, patient admitted for neurology consultation (Jurgen Jackson) - Lab Data Lab Results 12/28/23 12/28/23 12/28/23 Range/Units 14:20 14:20 14:20 WBC 7.6 (3.8-10.6) k/uL RBC 4.44 (4.30-5.90) m/uL Hgb 13.6 (13.0-17.5) gm/dL Hct 41.0 (39.0-53.0) % MCV 92.3 (80.0-100.0) fL MCH 30.6 (25.0-35.0) pg MCHC 33.2 (31.0-37.0) g/dL RDW 12.2 (11.5-15.5) % Plt Count 226 (150-450) k/uL MPV 8.0 Neutrophils % 69 % Lymphocytes % 15 % Monocytes % 9 % Eosinophils % 5 % Basophils % 1 % Neutrophils # 5.2 (1.3-7.7) k/uL Lymphocytes # 1.1 (1.0-4.8) k/uL Monocytes # 0.7 (0-1.0) k/uL Eosinophils # 0.4 (0-0.7) k/uL Basophils # 0.0 (0-0.2) k/uL Sodium 137 (137-145) mmol/L Potassium 4.3 (3.5-5.1) mmol/L Chloride 106 (98-107) mmol/L Carbon Dioxide 28 (22-30) mmol/L Anion Gap 3 mmol/L BUN 22 H (9-20) mg/dL Creatinine 0.78 (0.66-1.25) mg/dL Est GFR (CKD-EPI)AfAm >90 (>60 ml/min/1.73 sqM) Est GFR (CKD-EPI)NonAf 87 (>60 ml/min/1.73 sqM) Glucose 113 H (74-99) mg/dL Calcium 9.6 (8.4-10.2) mg/dL Magnesium (1.6-2.3) mg/dL Total Bilirubin 1.2 (0.2-1.3) mg/dL AST 32 (17-59) U/L ALT 30 (4-49) U/L Alkaline Phosphatase 75 (38-126) U/L Troponin I <0.012 (0.000-0.034) ng/mL NT-Pro-B Natriuret Pep pg/mL Total Protein 6.8 (6.3-8.2) g/dL Albumin 4.0 (3.5-5.0) g/dL 12/28/23 12/28/23 Range/Units 18:07 18:07 WBC (3.8-10.6) k/uL RBC (4.30-5.90) m/uL Hgb (13.0-17.5) gm/dL Hct (39.0-53.0) % MCV (80.0-100.0) fL MCH (25.0-35.0) pg MCHC (31.0-37.0) g/dL RDW (11.5-15.5) % Plt Count (150-450) k/uL MPV Neutrophils % % Lymphocytes % % Monocytes % % Eosinophils % % Basophils % % Neutrophils # (1.3-7.7) k/uL Lymphocytes # (1.0-4.8) k/uL Monocytes # (0-1.0) k/uL Eosinophils # (0-0.7) k/uL Basophils # (0-0.2) k/uL Sodium (137-145) mmol/L Potassium (3.5-5.1) mmol/L Chloride (98-107) mmol/L Carbon Dioxide (22-30) mmol/L Anion Gap mmol/L BUN (9-20) mg/dL Creatinine (0.66-1.25) mg/dL Est GFR (CKD-EPI)AfAm (>60 ml/min/1.73 sqM) Est GFR (CKD-EPI)NonAf (>60 ml/min/1.73 sqM) Glucose (74-99) mg/dL Calcium (8.4-10.2) mg/dL Magnesium 1.9 (1.6-2.3) mg/dL Total Bilirubin (0.2-1.3) mg/dL AST (17-59) U/L ALT (4-49) U/L Alkaline Phosphatase (38-126) U/L Troponin I <0.012 (0.000-0.034) ng/mL NT-Pro-B Natriuret Pep 1940 pg/mL Total Protein (6.3-8.2) g/dL Albumin (3.5-5.0) g/dL Disposition <Jayla Meneses - Last Filed: 12/28/23 15:02> Is patient prescribed a controlled substance at d/c from ED?: No Time of Disposition: 18:55 <Jurgen Jackson - Last Filed: 12/28/23 18:54> Clinical Impression: CVA (cerebral vascular accident), Vertigo Disposition: ADMITTED IP TO THIS [facility] Condition: Fair Referrals: Connor Singer DO [Primary Care Provider] - 1-2 days
--- NOTE | 2023-12-28 15:45 | CT ---
EXAMINATION TYPE: CT brain wo con DATE OF EXAM: 12/28/2023 COMPARISON: None INDICATION: DIZZINESS AND OFF BALANCE. FEELS "OFF DLP: 1137.4 mGycm, Automated exposure control for dose reduction was used. CONTRAST: None CT of the brain is performed utilizing 3 mm thick sections through the posterior fossa and 3 mm thick sections through the remaining calvarium. Study is performed within 24 hours of arrival to the hosp ital. No abnormal hyperdensity is present to suggest an acute intracranial hemorrhage. No mass lesion is evident. No acute infarcts are evident. Ventricles and sulci are mildly prominent for the patient age. Paranasal sinuses and mastoid air cells within the [id number] are clear. IMPRESSION: 1. Mild age-related atrophy. 2. No acute intracranial process. Follow-up MRI can be performed as clinically indicated
[2023-12-28] MEDS: SODIUM CHLORIDE 0.9% 500 ML 500 ML IV STA (18:11)
[2023-12-28 18:30] LABS: Magnesium 1.9 mg/dL (1.6-2.3)
[2023-12-28] MEDS: ASPIRIN 325 MG TAB PO STA (21:10)
[2023-12-28] MEDS: ATORVASTATIN 80 MG TAB PO SCH (21:10)
[2023-12-28] MEDS: SODIUM CHLORIDE 0.9% 1,000 ML IV SCH (21:11)
[2023-12-29] MEDS ORDERED: IPRATROPIUM-ALBUTEROL 3 ML NEB INHALATION PRN (01:23)
--- NOTE | 2023-12-29 01:23 | P.HPIM ---
History of Present Illness H&P Date: 12/28/23 Chief Complaint: Not feeling well generalized weakness and 78-year-old male with hypertension hyperlipidemia coronary artery disease COPD not on home oxygen Patient coming for evaluation upon recommendations of an urgent care to rule out stroke. He mentions that on Wednesday he was at his baseline status of health he mowed his lawn using a right lawnmower. But then Wednesday he was feeling tired all day while he was in the kitchen preparing a meal he felt very dizzy decided to take the rest of the day just resting, next day on Wednesday he was feeling tired and fatigued he tried to take his blood pressure readings but could not read the monitor he believes his blood pressure was in the low 100 however he continues to sleep and rest at home where he lives alone the symptoms dry cough throughout Wednesday and today Wednesday he decided to go to an urgent care for evaluation who told him that they are worried that he might be having a stroke advised him to come to the hospital for evaluation Patient denies any falling denies any head injury denies any history of stroke denies any headache denies any changes in vision or hearing denies any focal neurodeficits weakness numbness tingling in his upper or lower extremities There has been no recent changes in medications except for stopping his Plavix about 3 months ago by his doctor Patient denies tobacco smoking illicit drugs or heavy alcohol Today he noticed that his walking is different he describes it as difficult and not safe but otherwise denies any falling he denies any chest pain shortness of breath coughing nausea vomiting GI bleeding abdominal pain review of systems Pertinent positives as noted in HPI. All other systems were reviewed and are negative on exam Constitutional: No acute distress, conversant, pleasant Eyes: Anicteric sclerae, moist conjunctiva, Pupils equal round reactive to light ENMT: NC/AT Oropharynx clear, no erythema, or exudates Neck: Supple, no masses, or JVD No carotid bruits No thyromegaly Lungs: Clear to auscultation Clear to percussion Normal respiratory effort, no accessory muscle use Cardiovascular: Heart regular in rate and rhythm, No murmurs, gallops, or rubs No peripheral edema Abdominal: Soft Nontender, no guarding, rebound or rigidity Abdomen moving with respiration Normoactive bowel sounds Extremities: No digital cyanosis No clubbing Pedal pulses intact and symmetrical Radial pulses intact and symmetrical No calf tenderness Psychiatric: Alert and oriented to person, place and time Appropriate affect fair judgement Neuro Muscles Strength 5/5 in all 4 extremities Sensation to light touch grossly present throughout Cranial nerves II-XII grossly intact Lymphatics: no palpable cervical or supraclavicular lymph nodes Past Medical History Past Medical History: GERD/Reflux, Hyperlipidemia, Hypertension, Myocardial Infarction ([place]), Osteoarthritis (OA), Pneumonia, Prostate Disorder, Thyroid Disorder Additional Past Medical History / Comment(s): hx kidney stone, recent cough-now resolved, covid 08/27 Last Myocardial Infarction Date:: ? History of Any Multi-Drug Resistant Organisms: None Reported Past Surgical History: Heart Catheterization, Heart Catheterization With Stent, Hernia Repair, Orthopedic Surgery Additional Past Surgical History / Comment(s): jackeline carpal tunnel, rt cataract. /umbilical hernia repair, kidney stone lithotripsy, carpal tunnel rt wrist. rt cataract, orif rt leg Past Anesthesia/Blood Transfusion Reactions: No Reported Reaction Date of Last Stent Placement:: 09/16/2021 Past Psychological History: No Psychological Hx Reported Smoking Status: Former smoker Past Alcohol Use History: None Reported Past Drug Use History: None Reported - Past Family History Mother Family Medical History: Cancer Brother(s) Family Medical History: Cancer Medications and Allergies Home Medications Medication Instructions Recorded Confirmed Type Calcium Carbonate [Calcium] 600 mg PO HS 01/08/17 12/28/23 History Finasteride [Proscar] 5 mg PO DAILY 01/08/17 12/28/23 History Multivitamins, Thera [Multivitamin 1 tab PO DAILY 01/08/17 12/28/23 History (formulary)] Omeprazole 20 mg PO DAILY 01/08/17 12/28/23 History Aspirin 81 mg PO DAILY tab 09/17/22 12/28/23 Rx Nitroglycerin Sl Tabs [Nitrostat] 0.4 mg SUBLINGUAL Q5M PRN #25 tab 09/17/22 12/28/23 Rx Albuterol Inhaler [Ventolin Hfa 1 puff INHALATION RT-Q6H PRN 10/22/22 12/28/23 History Inhaler] Fluticasone/Umeclidin/Vilanter 1 puff INHALATION RT-DAILY 10/22/22 12/28/23 History [Trelegy Ellipta 100-62.5-25] Latanoprost [Latanoprost 0.005%] 1 drop BOTH EYES HS 10/22/22 12/28/23 History Timolol 0.5% Ophth Soln [Timoptic 1 drop BOTH EYES BID 10/22/22 12/28/23 History 0.5% Ophth Soln] Ascorbic Acid [Vitamin C] 1,000 mg PO DAILY 02/08/23 12/28/23 History Furosemide [Lasix] 20 mg PO DAILY 02/08/23 12/28/23 History Metoprolol Succinate (ER) [Toprol 100 mg PO DAILY 02/08/23 12/28/23 History XL] oxyCODONE-APAP 5-325MG [Percocet 1 tab PO DAILY PRN 02/08/23 12/28/23 History 5-325 mg] Atorvastatin [Lipitor] 80 mg PO HS 09/16/23 12/28/23 History Levothyroxine Sodium [Synthroid] 175 mcg PO DAILY 09/16/23 12/28/23 History Montelukast [Singulair] 10 mg PO HS 09/16/23 12/28/23 History Spironolactone [Aldactone] 12.5 mg PO DAILY 09/16/23 12/28/23 History lisinopriL [Zestril] 2.5 mg PO DAILY 09/16/23 12/28/23 History Albuterol Nebulized [Ventolin 2.5 mg INHALATION RT-TID PRN 12/28/23 12/28/23 History Nebulized] Isosorbide Mononitrate ER [Imdur] 30 mg PO DAILY 12/28/23 12/28/23 History Allergies Allergy/AdvReac Type Severity Reaction Status Date / Time No Known Allergies Allergy Verified 12/28/23 17:05 Physical Exam Vitals: Vital Signs Temp Pulse Resp BP Pulse Ox 12/28/23 23:00 62 19 102/56 94 L 12/28/23 21:07 65 18 104/63 94 L 12/28/23 18:19 62 16 107/62 97 12/28/23 13:56 97 F L 74 18 125/71 96 Intake and Output 12/28/23 12/28/23 12/29/23 14:59 22:59 06:59 Other: Weight 97.976 kg Results CBC & Chem 7: 12/28/23 14:20 12/28/23 14:20 Labs: Abnormal Lab Results - Last 24 Hours (Table) 12/28/23 Range/Units 14:20 BUN 22 H (9-20) mg/dL Glucose 113 H (74-99) mg/dL Assessment and Plan Assessment: 78-year-old male with hypertension CAD status post stents COPD not on home oxygen coming in for not feeling well unsteady gait I discussed case with ED doctor and accepted the admission for suspected underlying stroke for further neurologic evaluation with anticipated length of stay less than 2 midnights Gait instability rule out stroke CT of the brain no acute intracranial pathology Neurochecks PT/OT evaluation Neurology consultation Continue with aspirin and statin Allow for permissive hypertension Check echocardiogram Check carotid ultrasound Check lipid panel EKG no acute ST changes Blood work overall unremarkable white count 7.6 hemoglobin 13.6 Sodium 137 potassium 4.3 BUN 22 creatinine 0.7 Troponins negative Gentle IV fluid hydration 100 cc/h Bedside swallow eval Chronic conditions Hypertension current blood pressure is well-controlled Allow for permissive hypertension for 24 to 48 hours for suspected underlying stroke COPD compensated Supplemental oxygen as needed DuoNebs as needed Continue Trelegy Continue Singulair BPH continue with finasteride History of CAD Continue with aspirin and statin as above Continue with Imdur Hypothyroid Continue levothyroxine Full code DVT prophylaxis heparin subcu 3 times daily GI prophylaxis Protonix p.o. daily
[2023-12-29] MEDS: LEVOTHYROXINE 88 MCG TAB PO SCH (06:46)
[2023-12-29] MEDS: SYMBICORT 80-4.5 MCG INHALER INHALATION SCH (08:40)
[2023-12-29] MEDS: TIMOLOL 0.5% OPHTH DROPS 5 ML BTL BOTH EYES SCH (09:06)
[2023-12-29] MEDS: SPIRONOLACTONE 25 MG TAB PO SCH (09:07)
[2023-12-29] MEDS: ASPIRIN 325 MG TAB PO SCH (09:07)
[2023-12-29] MEDS: PANTOPRAZOLE 40 MG TABLET PO SCH (09:07)
[2023-12-29] MEDS: ISOSORBIDE MONONITRATE ER 30 MG TAB.ER.24H PO SCH (09:07)
[2023-12-29] MEDS: FINASTERIDE 5 MG TAB PO SCH (09:07)
[2023-12-29] MEDS: HEPARIN SODIUM,PORCINE 5,000 UNIT/ML 1 ML VIAL SQ SCH (09:08)
[2023-12-29 10:48] LABS: Chol/HDL Ratio 1.96 Ratio; LDL Cholesterol,Calculated 45.7 mg/dL (0.0-131.0); VLDL Calculation 11.54 mg/dL (5.00-40.00)
--- NOTE | 2023-12-29 15:43 | P.PN ---
Subjective Progress Note Date: 12/29/23 Hospital Course: 78-year-old male with history of hypertension, dyslipidemia, CAD, COPD present ing with dizziness, fatigue. On initial presentation, vital signs were within normal limits. Laboratory workup mostly unremarkable. Troponin negative x 4, proBNP 1900. Head CT did not show any acute process. EKG showed sinus rhythm with first-degree AV block. Concern for stroke. Patient admitted for further workup. Neurology consulted. Subjective: Patient seen and examined at bedside. No acute events overnight. His symptoms have completely resolved. He is now able to ambulate without any issues. Denies any further dizziness. Pertinent positives and negatives as discussed above, a complete review of systems was performed and all other systems are negative. Vitals Signs Reviewed. General: Nontoxic, no distress, appears at stated age Derm: Warm, dry Head: Atraumatic, normocephalic, symmetric Eyes: EOMI, no lid lag, anicteric sclera Mouth: No lip lesion, mucus membranes moist Cardiovascular: S1S2 reg, no murmur Lungs: CTA bilateral, no rhonchi, no rales, no accessory muscle use Abdominal: Soft, nontender to palpation, no guarding, no appreciable organomegaly Ext: No gross muscle atrophy, no edema, no contractures Neuro: CN II-XI grossly intact, no focal neuro deficits Psych: Alert, oriented, appropriate affect Data Reviewed Today: Pertinent Labs: Troponin negative, proBNP 1940, total cholesterol 117, LDL 45.7 Imaging: No new imaging Assessment and Plan: Active: Gait instability rule out stroke -CT of the brain no acute intracranial pathology -Neurochecks -PT/OT evaluation -Discussed management with neurology, pending brain MRI, and EEG -Continue aspirin 81 mg, atorvastatin 80 -Echocardiogram pending, MRI brain pending, carotid ultrasound pending, EEG p ending Chronic conditions Hypertension COPD compensated BPH History of CAD Hypothyroid DVT ppx: Subcu heparin Code status: Full code Anticipated discharge place: Pending clinical course Anticipated discharge time: Pending clinical course Objective - Vital Signs Vital signs: Vital Signs Temp 97.9 F 12/29/23 09:05 Pulse 71 12/29/23 15:41 Resp 17 12/29/23 15:41 BP 108/59 12/29/23 15:41 Pulse Ox 98 12/29/23 15:41 FiO2 Intake & Output 12/28/23 12/29/2324 18:59 06:59 18:59 Intake Total 598 Balance 598 Weight 97.976 kg 97.976 kg Intake: Oral 598 Other: Voiding Method Toilet Toilet # Voids 2 2 - Labs CBC & Chem 7: 12/28/23 14:20 12/28/23 14:20 Labs: Abnormal Lab Results - Last 24 Hours (Table) 12/28/23 Range/Units 14:20 Hemoglobin A1c 6.2 H (<=6.0) %
--- NOTE | 2023-12-29 15:43 | P.CNNES ---
History of Present Illness Consult date: 12/29/23 Requesting physician: Jurgen Jackson Reason for Consult: cva History of Present Illness: this is a 78-year-old gentleman who presented emergency department because of dizziness, blurry vision and confusion. His daughters at bedside. Patient states that that this Wednesday in the morning he is was initially doing well then hours later he felt dizziness and felt his vision was fuzzy but cannot tell me if right eye left eye both eyes. He was at the kitchen when this happened. patient did not describe this dizziness when this happened. He stated that the he wanted to sit down to check his blood pressure but could not see the letters. He had a headache over the right frontal region and it was mild. Denies any nausea or vomiting. Per the daughter seems that he was confused as well. Patient stated the whole episode lasted for 10-20 minutes. Denies any focal weakness or numbness or difficulty swallowing. He notified his girlfriend yesterday and the she encouraged him to come to the hospital as a result he came to the hospital yesterday. He does have underlying history of hypertension, hypercholesterolemia, history of cardiac stent. He is on aspirin 81 mg daily and Lipitor 80 mg daily. He denies any history of stroke or TIA. He feels back to baseline. some of the workup during his hospital visit consisted of: CBC with differential is unremarkable Hemoglobin A1c 6.2 BUN on presentation is 22 and the glucoses 113 otherwise rest is unremarkable lipid panel triglycerides 57, cholesterol is 117, LDLs 45 and HDL is 59. CT of the head is reported as mild age-related atrophy. No acute intracranial process. Follow-up MRI can be performed as clinically indicated.I personally reviewed the CT and I agree there is no acute subacute stroke. Review of Systems the positive and negative as per HPI. Past Medical History Past Medical History: GERD/Reflux, Hyperlipidemia, Hypertension, Myocardial Infarction (AR), Osteoarthritis (OA), Pneumonia, Prostate Disorder, Thyroid Disorder Additional Past Medical History / Comment(s): hx kidney stone, recent cough-now resolved, covid 08/27, hernias Last Myocardial Infarction Date:: ? History of Any Multi-Drug Resistant Organisms: None Reported Past Surgical History: Heart Catheterization, Heart Catheterization With Stent, Hernia Repair, Orthopedic Surgery Additional Past Surgical History / Comment(s): jackeline carpal tunnel, rt cataract, hip replacement. /umbilical hernia repair, kidney stone lithotripsy, carpal tunnel rt wrist. rt cataract, orif rt leg Past Anesthesia/Blood Transfusion Reactions: No Reported Reaction Date of Last Stent Placement:: 09/16/2021 Past Psychological History: No Psychological Hx Reported Smoking Status: Former smoker Past Alcohol Use History: None Reported Additional Past Alcohol Use History / Comment(s): quit smoking 1989, started 1959, smoked 1ppd Past Drug Use History: None Reported - Past Family History Mother Family Medical History: Cancer Brother(s) Family Medical History: Cancer Medications and Allergies Home Medications Medication Instructions Recorded Confirmed Type Calcium Carbonate [Calcium] 600 mg PO HS 01/08/17 12/28/23 History Finasteride [Proscar] 5 mg PO DAILY 01/08/17 12/28/23 History Multivitamins, Thera [Multivitamin 1 tab PO DAILY 01/08/17 12/28/23 History (formulary)] Omeprazole 20 mg PO DAILY 01/08/17 12/28/23 History Aspirin 81 mg PO DAILY tab 09/17/22 12/28/23 Rx Nitroglycerin Sl Tabs [Nitrostat] 0.4 mg SUBLINGUAL Q5M PRN #25 tab 09/17/22 12/28/23 Rx Albuterol Inhaler [Ventolin Hfa 1 puff INHALATION RT-Q6H PRN 10/22/22 12/28/23 History Inhaler] Fluticasone/Umeclidin/Vilanter 1 puff INHALATION RT-DAILY 10/22/22 12/28/23 History [Trelegy Ellipta 100-62.5-25] Latanoprost [Latanoprost 0.005%] 1 drop BOTH EYES HS 10/22/22 12/28/23 History Timolol 0.5% Ophth Soln [Timoptic 1 drop BOTH EYES BID 10/22/22 12/28/23 History 0.5% Ophth Soln] Ascorbic Acid [Vitamin C] 1,000 mg PO DAILY 02/08/23 12/28/23 History Furosemide [Lasix] 20 mg PO DAILY 02/08/23 12/28/23 History Metoprolol Succinate (ER) [Toprol 100 mg PO DAILY 02/08/23 12/28/23 History XL] oxyCODONE-APAP 5-325MG [Percocet 1 tab PO DAILY PRN 02/08/23 12/28/23 History 5-325 mg] Atorvastatin [Lipitor] 80 mg PO HS 09/16/23 12/28/23 History Levothyroxine Sodium [Synthroid] 175 mcg PO DAILY 09/16/23 12/28/23 History Montelukast [Singulair] 10 mg PO HS 09/16/23 12/28/23 History Spironolactone [Aldactone] 12.5 mg PO DAILY 09/16/23 12/28/23 History lisinopriL [Zestril] 2.5 mg PO DAILY 09/16/23 12/28/23 History Albuterol Nebulized [Ventolin 2.5 mg INHALATION RT-TID PRN 12/28/23 12/28/23 History Nebulized] Isosorbide Mononitrate ER [Imdur] 30 mg PO DAILY 12/28/23 12/28/23 History Allergies Allergy/AdvReac Type Severity Reaction Status Date / Time No Known Allergies Allergy Verified 12/28/23 17:05 Physical Examination - Vital Signs Vital Signs: Vital Signs Temp Pulse Pulse Resp BP BP Pulse Ox 12/29/23 11:07 75 17 109/58 96 12/29/23 09:05 97.9 F 82 15 136/74 98 12/29/23 04:49 74 16 99/54 94 L 12/29/23 01:36 69 16 122/87 97 12/28/23 23:00 62 19 102/56 94 L 12/28/23 21:07 65 18 104/63 94 L 12/28/23 18:19 62 16 107/62 97 Intake and Output 12/29/23 12/29/23 12/29/23 06:59 14:59 22:59 Intake Total 598 Balance 598 Intake: Oral 598 Other: Voiding Method Toilet Toilet # Voids 2 2 Weight 97.976 kg GENERAL: The patient is sitting in a recliner chair and is not in acute distress. NEUROLOGICAL: Higher mental function: The patient is awake, alert, oriented to self, place and time. Patient is following commands. No aphasia and no neglect. Cranial nerves: The pupils are round, equal and reactive to light and accommodation. Visual ocasio are full to confrontation throughout. Extraocular movement is intact no nystagmus is noted. Facial sensation is normal to touch throughout. The facial strength is normal throughout. Hearing is normal bilaterally to hand rub. Tongue is midline and moved [id number] without any difficulty. No dysarthria is noted. Shoulder shrug is normal bilaterally. Motor: The strength is 5 over 5 throughout. Normal tone and bulk. Cerebellum: Normal finger to nose bilaterally. Sensation: Sensation is normal to touch throughout. Reflexes (right/left): 2+ throughout. Plantars are downgoing bilaterally. Results - Laboratory Findings CBC and BMP: 12/28/23 14:20 12/28/23 14:20 Abnormal Lab Findings: Abnormal Labs 12/28/23 12/28/23 14:20 14:20 BUN 22 H Glucose 113 H Hemoglobin A1c 6.2 H Assessment and Plan Assessment: This is a 78-year-old gentleman who presents because of dizziness, visual disturbance and confusion that started this Wednesday and lasted for 10-20 minutes. Transient episode of visual disturbance with dizziness and confusion: Probable TIA Newly diagnosed Pre-DM (HbA1c 6.2) Underlying history of hypertension Hypercholesteremia Remote MRI History of coronary artery disease status post stent Plan: I ordered MRI the brain, routine EEG. 2-D echo, carotid duplex was ordered and is pending TSH is ordered and is pending Patient is resumed on his home medication of aspirin 81 mg. He was given aspirin 325 once in the ED. I started the patient on Plavix 75 mg in addition to his home aspirin. He is resumed on his home medication of Lipitor 80 mg daily at bedtime Continue neuro checks Cardiac monitoring PT OT and SR SOLUTIONS CONSULTANT are consulted We'll defer the rest of the medical management to primary team For DVT prophylaxis the patient is on subcu heparin The plan is discussed with patient, his daughter who is at bedside and primary team. Thank you for the consultation. Time with Patient: Greater than 30
[2023-12-29] MEDS: CLOPIDOGREL 75 MG TAB PO SCH (16:11)
[2023-12-29] MEDS: MONTELUKAST 10 MG TAB PO SCH (19:56)
--- NOTE | 2023-12-29 20:52 | US ---
EXAMINATION TYPE: US carotid duplex BILAT DATE OF EXAM: 12/28/2023 COMPARISON: NONE CLINICAL INDICATION: Male, 78 years old with history of Stenosis; Stenosis TECHNIQUE: Carotid duplex ultrasound examination. Indirect Doppler criteria was utilized. FINDINGS: EXAM MEASUREMENTS: RIGHT: Peak Systolic Velocity (PSV) cm/sec ----- Right CCA: 74.2 ----- Right ICA: 88.7 ----- Right ECA: 63.6 ICA/CCA ratio: 1.2 RIGHT: End Diastole cm/sec ----- Right CCA: 14.2 ----- Right ICA: 22.5 ----- Right ECA: 0.0 LEFT: Peak Systolic Velocity (PSV) cm/sec ----- Left CCA: 79.2 ----- Left ICA: 85.5 ----- Left ECA: 89.2 ICA/CCA ratio: 1.1 LEFT: End Diastole cm/sec ----- Left CCA: 16.2 ----- Left ICA: 20.0 ----- Left ECA: 8.9 VERTEBRALS (direction of flow): Right Vertebral: Antegrade Left Vertebral: Antegrade Rhythm: (No comment by the box press operator) ANDROID SOFTWARE ENGINEER NOTES: Slightly limited due to patient lack of mobility and tortuous, deep diving vesse ls. There is plaque seen throughout the CCA and bifurcation. No significant velocity elevations seen. IMPRESSION: No hemodynamically significant internal carotid artery stenosis on either side. Criteria for Assigning % of Stenosis / Diameter reduction (Estimation based on the indirect measurements of the internal carotid artery velocities (ICA PSV). 1. Normal (no stenosis)=ICA PSV < 125 cm/s: ratio < 2.0: ICA EDV<40 cm/s. 2. Less than 50% stenosis=ICA PSV < 125 cm/s: ratio < 2.0: ICA EDV<40 cm/s. 3. 50 to 69% stenosis=ICA PSV of 125 to 230 cm/s: ration 2.0 ? 4.0: ICA EDV 40-100 cm/s. 4. Greater than 70% stenosis to near occlusion= ICA PSV > 230 cm/s: ratio > 4.0: ICA EDV > 100 cm/s. 5. Near occlusion= ICA PSV velocities may be low or undetectable: variable ratio and ICA EDV. 6. Total occlusion=unable to detect flow.
[2023-12-30 06:15] LABS: T4, Free (Free Thyroxine) 1.91 ng/dL (0.78-2.19)
--- NOTE | 2023-12-30 10:33 | CA ---
Transthoracic Echo Report Name: Surya Byers Age: 78 Gender: M : 1945 Exam Date: 12/29/2023 08:14 Exam Location: [facility] Ht (in): 66 Wt (lb): 216 Ordering Physician: Jurgen Jackson DO Attending/Referring Phys: [id number], Manuel Customer Success Advocate Akua Alva RDCS Procedure CPT: Indications: Thrombus Cardiac Hx: Technical Quality: Good Contrast 1: Total Dose (mL): Contrast 2: Total Dose (mL): MEASUREMENTS (Male / Female) Normal Values 2D ECHO LV Diastolic Diameter PLAX 6.7 cm 4.2 - 5.9 / 3.9 - 5.3 cm LV Systolic Diameter PLAX 5.5 cm IVS Diastolic Thickness 1.1 cm 0.6 - 1.0 / 0.6 - 0.9 cm LVPW Diastolic Thickness 1.0 cm 0.6 - 1.0 / 0.6 - 0.9 cm LV Relative Wall Thickness 0.3 RV Internal Dim ED PLAX 3.8 cm LA Systolic Diameter LX 4.3 cm 3.0 - 4.0 / 2.7 - 3.8 cm LV Diastolic Volume MOD 4C 162.2 cm??? LV Systolic Volume MOD 4C 95.5 cm??? LV Ejection Fraction MOD 4C 41.2 % LV Cardiac Index MOD 4C 2271.8 cm???/min???m??? LV Diastolic Length 4C 8.8 cm LV Systolic Length 4C 7.9 cm LV Diastolic Volume MOD 2C 125.4 cm??? LV Systolic Volume MOD 2C 70.0 cm??? LV Ejection Fraction MOD 2C 44.1 % LV Cardiac Index MOD 2C 1882.5 cm???/min???m??? LV Diastolic Length 2C 8.7 cm LV Systolic Length 2C 7.6 cm LA Volume 87.1 cm??? 18 - 58 / 22 - 52 cm??? LA Volume Index 40.1 cm???/m??? 16 - 28 cm???/m??? M-MODE Aortic Root Diameter MM 3.2 cm MV E Point Septal Separation 1.7 cm AV Cusp Separation MM 2.1 cm DOPPLER AV Peak Velocity 127.9 cm/s AV Peak Gradient 6.5 mmHg AI Peak Velocity 442.2 cm/s AI Peak Gradient 78.2 mmHg AI Pressure Half Time 385.6 ms MV Area PHT 3.1 cm??? MR Peak Velocity 488.7 cm/s MR Peak Gradient 95.5 mmHg Mitral E Point Velocity 103.7 cm/s Mitral A Point Velocity 69.7 cm/s Mitral E to A Ratio 1.5 MV Deceleration Time 243.5 ms TR Peak Velocity 323.5 cm/s TR Peak Gradient 41.9 mmHg Right Ventricular Systolic Press 46.4 mmHg FINDINGS Left Ventricle Left ventricular ejection fraction is estimated at 35-40 %. Mildly increased septal wall thickness. Moderately increased left ventricular diastolic diameter. Moderately reduced global left ventricular systolic function. Global left ventricular hypokinesis. Right Ventricle Mild right ventricular dilatation. Moderate pulmonary hypertension. Right ventricular systolic pressure estimated at 46 mm hg. Right Atrium Mild right atrial dilatation. Left Atrium Mildly increased left atrial diameter. Severely increased left atrial volume. Mildly increased left atrial area. Mitral Valve Structurally normal mitral valve. Mild mitral regurgitation. Aortic Valve Trileaflet aortic valve. Mild aortic regurgitation. Tricuspid Valve No tricuspid stenosis. Prolapse of anterior leaflet with regurgitation Pulmonic Valve Structurally normal pulmonic valve. Mild pulmonic regurgitation. Pericardium No pericardial effusion. Aorta Normal size aortic root and proximal ascending aorta. CONCLUSIONS Reduced LV systolic function ejection fraction 35% Right ventricular enlargement with moderate pulmonary hypertension 2+ mitral regurgitation Tricuspid valve prolapse Previewed by: Dr. Juan Mendoza MD (Electronically Signed) Final Date: 30 December 2023 10:32
[2023-12-30] MEDS: ASPIRIN 81 MG PO SCH (11:05)
--- NOTE | 2023-12-30 13:39 | P.PN ---
Subjective Progress Note Date: 12/30/23 I am following-up with patient and feels about the same. Denies any new neurological issues. Objective - Vital Signs Vital signs: Vital Signs Temp 97.7 F 12/30/23 08:44 Pulse 82 12/30/23 12:00 Resp 15 12/30/23 12:00 BP 136/76 12/30/23 12:00 Pulse Ox 98 12/30/23 12:00 FiO2 Intake & Output 12/29/23 12/30/23 12/30/23 18:59 06:59 18:59 Intake Total 716 118 Balance 716 118 Intake: Oral 716 118 Other: Voiding Method Toilet Toilet Toilet # Voids 2 1 - Exam GENERAL: The patient is sitting in a recliner chair and is not in acute dis tress. NEUROLOGICAL: Higher mental function: The patient is awake, alert, oriented to self, place and time. Patient is following commands. No aphasia and no neglect. Cranial nerves: The pupils are round, equal and reactive to light and accommodation. Visual ocasio at times had some difficulty over the left lower quadrant bilaterally but at time normal throughout. Extraocular movement is intact no nystagmus is noted. Facial sensation is normal to touch throughout. The facial strength is normal throughout. Hearing is normal bilaterally to hand rub. Tongue is midline and moved [id number] without any difficulty. No dysarthria is noted. Shoulder shrug is normal bilaterally. Motor: The strength is 5 over 5 throughout. Normal tone and bulk. Cerebellum: Normal finger to nose bilaterally. Sensation: Sensation is normal to touch throughout. Reflexes (right/left): 2+ throughout. Plantars are downgoing bilaterally. some of the workup during his hospital visit consisted of: CBC with differential is unremarkable Hemoglobin A1c 6.2 BUN on presentation is 22 and the glucoses 113 otherwise rest is unremarkable lipid panel triglycerides 57, cholesterol is 117, LDLs 45 and HDL is 59. TSH: 0.315 and free T4: 1.91 CT of the head is reported as mild age-related atrophy. No acute intracranial process. Follow-up MRI can be performed as clinically indicated.I personally reviewed the CT and I agree there is no acute subacute stroke. 2D echo: Reduced LV systolic function ejection fraction 35%. Right ventricular enlargement with moderate pulmonary hypertension. Carotid duplex: No hemodynamically significant internal carotid artery stenosis on either side. - Labs CBC & Chem 7: 12/28/23 14:20 12/28/23 14:20 Labs: Abnormal Lab Results - Last 24 Hours (Table) 12/28/23 Range/Units 14:20 TSH 0.315 L (0.465-4.680) mIU/L Assessment and Plan Assessment: This is a 78-year-old gentleman who presents because of dizziness, visual disturbance and confusion that started this Wednesday and lasted for 10-20 minutes. Transient episode of visual disturbance with dizziness and confusion: Is likely stroke and on MRI I reviewed it, seems right occipital. Newly diagnosed Pre-DM (HbA1c 6.2) Underlying history of hypertension Hypercholesteremia Remote MRI History of coronary artery disease status post stent Plan: Is likely stroke and on MRI I reviewed it, seems right occipital. Will wait for official report. Pending routine EEG. Will pursue with CTA of head and neck Patient is resumed on his home medication of aspirin 81 mg. He was given aspirin 325 once in the ED. I started the patient on Plavix 75 mg in addition to his home aspirin. He is resumed on his home medication of Lipitor 80 mg daily at bedtime Will pursue with CRIS. Cardiology is consulted Continue neuro checks Cardiac monitoring. So far no a-fib or flutter on monitoring per nurse. Recommend 30 days event monitor. PT OT and TIRE WORKER are consulted We'll defer the rest of the medical management to primary team For DVT prophylaxis the patient is on subcu heparin The plan is discussed with patient, his nurse and primary team. Time with Patient: Less than 30
--- NOTE | 2023-12-30 13:46 | P.PN ---
Subjective Progress Note Date: 12/30/23 Hospital Course: 78-year-old male with history of hypertension, dyslipidemia, CAD, COPD present ing with dizziness, fatigue. On initial presentation, vital signs were within normal limits. Laboratory workup mostly unremarkable. Troponin negative x 4, proBNP 1900. Head CT did not show any acute process. EKG showed sinus rhythm with first-degree AV block. Patient admitted for further workup for CVA. Neurology consulted. Brain MRI completed. Official report pending. Likely has stroke, embolic in nature. Echocardiogram showed LVEF 35 to 40%, moderate pulmonary hypertension, 2+ mitral regurgitation, tricuspid valve prolapse, cardiology consulted, pending CRIS and event monitor placement. Subjective: Patient seen and examined at bedside. No acute events overnight. His symptoms have completely resolved. He is now able to ambulate without any issues. Denies any further dizziness. Pertinent positives and negatives as discussed above, a complete review of systems was performed and all other systems are negative. Vitals Signs Reviewed. General: Nontoxic, no distress, appears at stated age Derm: Warm, dry Head: Atraumatic, normocephalic, symmetric Eyes: EOMI, no lid lag, anicteric sclera Mouth: No lip lesion, mucus membranes moist Cardiovascular: S1S2 reg, no murmur Lungs: CTA bilateral, no rhonchi, no rales, no accessory muscle use Abdominal: Soft, nontender to palpation, no guarding, no appreciable organomegaly Ext: No gross muscle atrophy, no edema, no contractures Neuro: CN II-XI grossly intact, no focal neuro deficits Psych: Alert, oriented, appropriate affect Data Reviewed Today: Pertinent Labs: No new labs Imaging: Echocardiogram showed LVEF 35 to 40%, moderate pulmonary hypertension, 2+ mitral regurgitation, tricuspid valve prolapse Assessment and Plan: Acute CVA Brain MRI report pending Discussed management with neurology, patient would require CRIS and an event monitor, cardiology consulted -Neurochecks, telemetry -PT/OT/speech evaluation -Continue aspirin 81 mg, atorvastatin 80, Plavix 75 daily Systolic cardiomyopathy, 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%, not in exacerbation - Cardiology consulted -Continue home heart failure medications Chronic conditions Hypertension COPD compensated BPH History of CAD Hypothyroid DVT ppx: Subcu heparin Code status: Full code Anticipated discharge place: Pending clinical course Anticipated discharge time: Pending clinical course Objective - Vital Signs Vital signs: Vital Signs Temp 97.7 F 12/30/23 08:44 Pulse 82 12/30/23 12:00 Resp 15 12/30/23 12:00 BP 136/76 12/30/23 12:00 Pulse Ox 98 12/30/23 12:00 FiO2 Intake & Output 12/29/23 12/30/23 12/30/23 18:59 06:59 18:59 Intake Total 716 118 Balance 716 118 Intake: Oral 716 118 Other: Voiding Method Toilet Toilet Toilet # Voids 2 1 - Labs CBC & Chem 7: 12/28/23 14:20 12/28/23 14:20 Labs: Abnormal Lab Results - Last 24 Hours (Table) 12/28/23 Range/Units 14:20 TSH 0.315 L (0.465-4.680) mIU/L
--- NOTE | 2023-12-30 13:55 | MR ---
EXAMINATION TYPE: MR brain wo con DATE OF EXAM: 12/30/2023 COMPARISON: Brain CT 12/28/2023 HISTORY: 78-year-old male Dizziness with confusion TECHNIQUE: Multiplanar, multisequence images of the brain and brainstem were acquired without IV con trast. Diffusion weighted imaging is performed. FINDINGS: There are small foci of restricted diffusion localized to the right occipital lobe cortex spanning ju st over 5 cm. Corresponding bright T2/FLAIR weighted signal is present. No evidence for mass, mass effect, midline shift, herniation, effacement of basal cisterns, or extra- axial fluid collection. T2/FLAIR weighted sequences also show some moderate scattered burden of bright signal foci throughout the subcortical, deep, and periventricular regions of both cerebral hemispheres. The ventricles and sulci are age-appropriate with mild generalized volume loss. Major intracranial flow voids are intact. Midline structures demonstrate normal morphology. The craniocervical junction is normal. There is mild mucosal thickening of the ethmoid air cells. Slight rightward nasal septal deviation. G lobes appear intact. Small amount of fluid within the right mastoid air cells. Correlate for any mast oid pain to exclude mastoiditis. IMPRESSION: 1. Small foci of acute cortical infarcts (greater than 6 hours in duration) involving the right occip ital lobe spanning a region of 5 cm. No midline shift or herniation. 2. Background mild generalized cerebral atrophy and moderate burden of chronic small vessel ischemic disease.
[2023-12-30] MEDS: ISOSORBIDE MONONITRATE ER 30 MG TAB.ER.24H PO SCH (13:59)
[2023-12-30] MEDS: SPIRONOLACTONE 25 MG TAB PO SCH (13:59)
--- NOTE | 2023-12-30 16:06 | CT ---
EXAMINATION TYPE: CT angio head neck DATE OF EXAM: 12/30/2023 HISTORY: cva COMPARISON: CT DLP: 546.8 mGycm. Automated Exposure Control for Dose Reduction was Utilized. TECHNIQUE: CTA scan of the head and neck is performed with IV Contrast, patient injected with 65ml m L of Isovue 370, axial images are obtained, coronal and sagittal reformatted images are reviewed. 3D reconstructed images are created on an independent workstation and reviewed. FINDINGS: The brachiocephalic origins are widely patent and no significant stenosis. There is no significant stenosis of the common or internal carotid arteries within the neck. There ar e few scattered small calcified plaques in the carotid bifurcations and in the carotid siphon. There is no stenosis of the vertebral arteries. Intracranially, there is no stenosis, segmental occlusion, sizable aneurysm sac or vascular malformat ion. IMPRESSION:. No significant abnormality seen. NASCET criteria was used in interpretation of this exam?
[2023-12-30] MEDS: polyethylene glycoL 3350 17 GM POWD.PACK PO SCH (21:47)
--- NOTE | 2023-12-31 02:22 | EEG ---
ELECTROENCEPHALOGRAM REPORT CLINICAL HISTORY: This is a 78-year-old gentleman with episode of confusion. The video EEG is obtained to evaluate for seizure epileptiform activity. RELEVANT MEDICATION: The patient is not on any antiepileptic drugs. EEG TYPE: This is a routine 21-channel EEG with video using the 10/20 electrode placement system. DESCRIPTION: Wakefulness is only obtained. During awake state, the posterior-dominant rhythm consists of [id number] voltage of 10 hertz activity that is well modulated and well sustained. There is no physiological stage 2 sleep architecture. There is no focal slowing. Interictal and ictal is none. ACTIVATION PROCEDURE: Photic stimulation did not evoke a posterior driving response. There is no abnormality during the photic stimulation. Hyperventilation is not performed. CLINICAL INTERPRETATION: This is a normal routine EEG. There is no focal slowing, epileptiform discharge, or seizure on the EEG. A normal routine EEG does not rule out underlying epilepsy. Clinical correlation is recommended. ANDREA / LANDY: [id number] / MARIO
[2023-12-31] MEDS: METOPROLOL SUCCINATE (ER) 100 MG TAB.ER.24H PO SCH (08:51)
[2023-12-31] MEDS: FUROSEMIDE 20 MG TAB PO SCH (08:51)
[2023-12-31 10:27] VITALS: TEMP 98.2
[2023-12-31 12:00] VITALS: RESP 16
--- NOTE | 2023-12-31 13:03 | P.PN ---
Subjective Progress Note Date: 12/31/23 Hospital Course: 78-year-old male with history of hypertension, dyslipidemia, CAD, COPD present ing with dizziness, fatigue. On initial presentation, vital signs were within normal limits. Laboratory workup mostly unremarkable. Troponin negative x 4, proBNP 1900. Head CT did not show any acute process. EKG showed sinus rhythm with first-degree AV block. Patient admitted for further workup for CVA. Neurology consulted. Brain MRI showed small foci of acute cortical infarcts involving the right occipital lobe. Likely embolic stroke. Echocardiogram showed LVEF 35 to 40%, moderate pulmonary hypertension, 2+ mitral regurgitation, tricuspid valve prolapse, cardiology consulted, pending CRIS and event monitor placement. Subjective: Patient seen and examined at bedside. No acute events overnight. Has minor left blurry eye. Pertinent positives and negatives as discussed above, a complete review of systems was performed and all other systems are negative. Vitals Signs Reviewed. General: Nontoxic, no distress, appears at stated age Derm: Warm, dry Head: Atraumatic, normocephalic, symmetric Eyes: EOMI, no lid lag, anicteric sclera Mouth: No lip lesion, mucus membranes moist Cardiovascular: S1S2 reg, no murmur Lungs: CTA bilateral, no rhonchi, no rales, no accessory muscle use Abdominal: Soft, nontender to palpation, no guarding, no appreciable organomegaly Ext: No gross muscle atrophy, no edema, no contractures Neuro: CN II-XI grossly intact, no focal neuro deficits Psych: Alert, oriented, appropriate affect Data Reviewed Today: Pertinent Labs: No new labs Imaging: CTA head and neck shows no significant abnormalities, EEG does not show any epileptiform discharges Assessment and Plan: Acute CVA, 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 Neurology following, patient would require CRIS and an event monitor, cardiology consulted -Neurochecks, telemetry -PT/OT/speech evaluation -Continue aspirin 81 mg, atorvastatin 80, Plavix 75 daily Systolic cardiomyopathy, 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%, not in exacerbation - Cardiology consulted -Continue home heart failure medications Chronic conditions Hypertension COPD compensated BPH History of CAD Hypothyroid DVT ppx: Subcu heparin Code status: Full code Anticipated discharge place: Pending clinical course Anticipated discharge time: Pending clinical course Objective - Vital Signs Vital signs: Vital Signs Temp 98.2 F 12/31/23 08:00 Pulse 61 12/31/23 11:53 Resp 16 12/31/23 11:53 BP 104/57 12/31/23 11:53 Pulse Ox 98 12/31/23 11:53 FiO2 Intake & Output 12/30/23 12/31/23 12/31/23 18:59 06:59 18:59 Intake Total 128 138 0 Balance 128 138 0 Intake: IV 10 20 Invasive Line 3 10 20 Oral 118 118 0 Other: Voiding Method Toilet Toilet Toilet # Voids 3 3 2 - Labs CBC & Chem 7: 12/28/23 14:20 12/28/23 14:20
[2023-12-31] MEDS: BENZOCAINE SPRAY 1 CAN TOPICAL ONE (13:13)
[2023-12-31] MEDS: MIDAZOLAM 2 MG/2 ML VIAL IVP ONE ×2 (13:14→13:16)
--- NOTE | 2023-12-31 13:30 | P.PCN ---
Date of Procedure: 12/31/23 Operative Findings: TRANSESOPHAGEAL ECHOCARDIOGRAM RN ADMISSIONS: QUETA CORDERO MD, RPVI INDICATION: Rule out cardiac source of embolization SEDATION: Conscious sedation COMPLICATION: None LEVEL OF SEDATION Moderate with sedation length of 16 minutes PROCEDURE DESCRIPTION: After obtaining an informed consent, the patient was brought to transesophageal echocardiogram room. Pulse oximetry and heart monitors were attached to the patient. The patient throat was sprayed using lidocaine. The patient was turned into left lateral position. After that a bite guard was placed. After an appropriate conscious sedation was initiated, the transesophageal echocardiogram was advanced through a bite guard into the mid esophagus. A 2-D echocardiogram images, color Doppler images, continuous wave images, pulse-wave images, of various cardiac structure were performed. After that the transesophageal echocardiogram probe was advanced into the stomach and fixed to obtain transgastric view was. The probe was brought into the mid esophagus. Inter-atrial septum was interrogated using 2D images, color Doppler images, and then contrast study. After that transesophageal echocardiogram was withdrawn out and upon withdrawing the descending thoracic aorta all the way up to the arch was evaluated. CONCLUSION: 1. Impaired LV function with EF between 30 to 35% with global hypokinesia 2. No evidence of cardiac source of embolization. Intact interatrial septum. Intact left atrial appendage 3. Normal mitral valve leaflets with evidence of moderate mitral regurgitation likely secondary to cardiomyopathy 4. Trileaflet aortic valve with no stenosis with moderate regurgitation 5. Moderate tricuspid regurgitation 6. No evidence of pericardial effusion
[2023-12-31] MEDS: fentaNYL (PF) 50 MCG/ML 2 ML AMP ONE (13:47)
--- NOTE | 2023-12-31 15:15 | P.DS ---
Providers Date of admission: 12/28/23 19:00 Expected date of discharge: 12/31/23 Attending physician: Zari Anderson MD Consults: 12/28/23 18:55 Consult Physician Routine Consulting Provider: Luis Mahajan Consult Reason/Comments: cva Do you want consulting provider notified?: Yes 12/30/23 11:16 Consult Physician Urgent Consulting Provider: Freddie Lyles Consult Reason/Comments: needs CRIS, event monitor Do you want consulting provider notified?: Yes [facility] Course: Discharge Diagnosis: Acute CVA, 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 Systolic cardiomyopathy, 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 On initial presentation, vital signs were within normal limits. Laboratory workup mostly unremarkable. Troponin negative x 4, proBNP 1900. Head CT did not show any acute process. EKG showed sinus rhythm with first-degree AV block. Patient admitted for further workup for CVA. Neurology consulted. Brain MRI showed small foci of acute cortical infarcts involving the right occipital lobe. Likely embolic stroke. Echocardiogram showed LVEF 35 to 40%, moderate pulmonary hypertension, 2+ mitral regurgitation, tricuspid valve prolapse, cardiology consulted, CRIS shows LVEF 30 to 35% with global hypokinesia, no evidence of cardiac source of embolization, intact interatrial septum, intact left atrial appendage, moderate mitral regurgitation, normal mitral valve leaflets, moderate aortic regurgitation, normal trileaflet aortic valve, moderate tricuspid regurgitation. Event monitor placed. Patient being discharged home with follow-up with neurology. Patient seen and examined at bedside. Vital signs reviewed and stable. General: Nontoxic, no distress, appears at stated age Derm: Warm, dry Head: Atraumatic, normocephalic, symmetric Eyes: EOMI, no lid lag, anicteric sclera Mouth: No lip lesion, mucus membranes moist Cardiovascular: S1S2 reg, no murmur Lungs: CTA bilateral, no rhonchi, no rales, no accessory muscle use Abdominal: Soft, nontender to palpation, no guarding, no appreciable organomegaly Ext: No gross muscle atrophy, no edema, no contractures Neuro: CN II-XI grossly intact, no focal neuro deficits Psych: Alert, oriented, appropriate affect A total of 33 minutes of time were spent preparing this complex discharge summary. Patient was discharged on 12/31/2023 at 1514. Patient Condition at Discharge: Stable Plan - Discharge Summary New Discharge Prescriptions: New Clopidogrel [Plavix] 75 mg PO DAILY #90 tab Continue Omeprazole 20 mg PO DAILY Finasteride [Proscar] 5 mg PO DAILY Multivitamins, Thera [Multivitamin (formulary)] 1 tab PO DAILY Calcium Carbonate [Calcium] 600 mg PO HS Aspirin 81 mg PO DAILY tab Timolol 0.5% Ophth Soln [Timoptic 0.5% Ophth Soln] 1 drop BOTH EYES BID Latanoprost [Latanoprost 0.005%] 1 drop BOTH EYES HS Fluticasone/Umeclidin/Vilanter [Trelegy Ellipta 100-62.5-25] 1 puff INHALATION RT-DAILY oxyCODONE-APAP 5-325MG [Percocet 5-325 mg] 1 tab PO DAILY PRN PRN Reason: Pain Ascorbic Acid [Vitamin C] 1,000 mg PO DAILY Metoprolol Succinate (ER) [Toprol XL] 100 mg PO DAILY Atorvastatin [Lipitor] 80 mg PO HS Montelukast [Singulair] 10 mg PO HS Spironolactone [Aldactone] 12.5 mg PO DAILY Isosorbide Mononitrate ER [Imdur] 30 mg PO DAILY Nitroglycerin Sl Tabs [Nitrostat] 0.4 mg SUBLINGUAL Q5M PRN #25 tab PRN Reason: Chest Pain Albuterol Inhaler [Ventolin Hfa Inhaler] 1 puff INHALATION RT-Q6H PRN PRN Reason: Shortness Of Breath Furosemide [Lasix] 20 mg PO DAILY Levothyroxine Sodium [Synthroid] 175 mcg PO DAILY lisinopriL [Zestril] 2.5 mg PO DAILY Albuterol Nebulized [Ventolin Nebulized] 2.5 mg INHALATION RT-TID PRN PRN Reason: Shortness Of Breath Discharge Medication List Calcium Carbonate [Calcium] 600 mg PO HS 01/08/17 [History] Finasteride [Proscar] 5 mg PO DAILY 01/08/17 [History] Multivitamins, Thera [Multivitamin (formulary)] 1 tab PO DAILY 01/08/17 [History] Omeprazole 20 mg PO DAILY 01/08/17 [History] Aspirin 81 mg PO DAILY tab 09/17/22 [Rx] Nitroglycerin Sl Tabs [Nitrostat] 0.4 mg SUBLINGUAL Q5M PRN #25 tab 09/17/22 [Rx] Albuterol Inhaler [Ventolin Hfa Inhaler] 1 puff INHALATION RT-Q6H PRN 10/22/22 [History] Fluticasone/Umeclidin/Vilanter [Trelegy Ellipta 100-62.5-25] 1 puff INHALATION RT-DAILY 10/22/22 [History] Latanoprost [Latanoprost 0.005%] 1 drop BOTH EYES HS 10/22/22 [History] Timolol 0.5% Ophth Soln [Timoptic 0.5% Ophth Soln] 1 drop BOTH EYES BID 10/22/22 [History] Ascorbic Acid [Vitamin C] 1,000 mg PO DAILY 02/08/23 [History] Furosemide [Lasix] 20 mg PO DAILY 02/08/23 [History] Metoprolol Succinate (ER) [Toprol XL] 100 mg PO DAILY 02/08/23 [History] oxyCODONE-APAP 5-325MG [Percocet 5-325 mg] 1 tab PO DAILY PRN 02/08/23 [History] Atorvastatin [Lipitor] 80 mg PO HS 09/16/23 [History] Levothyroxine Sodium [Synthroid] 175 mcg PO DAILY 09/16/23 [History] Montelukast [Singulair] 10 mg PO HS 09/16/23 [History] Spironolactone [Aldactone] 12.5 mg PO DAILY 09/16/23 [History] lisinopriL [Zestril] 2.5 mg PO DAILY 09/16/23 [History] Albuterol Nebulized [Ventolin Nebulized] 2.5 mg INHALATION RT-TID PRN 12/28/23 [History] Isosorbide Mononitrate ER [Imdur] 30 mg PO DAILY 12/28/23 [History] Clopidogrel [Plavix] 75 mg PO DAILY #90 tab 12/31/23 [Rx] Follow up Appointment(s)/Referral(s): Connor Singer DO [Primary Care Provider] - 1-2 days iNchelle Whitehead MD [REFERRING] - 1 Week Patient Instructions/Handouts: Ischemic Stroke (DC) Activity/Diet/Wound Care/Special Instructions: Please see PCP and neurology. Discharge Disposition: HOME SELF-CARE
--- NOTE | 2023-12-31 15:50 | P.PN ---
Subjective Progress Note Date: 12/31/23 I am following-up with patient and he feels about the same. No new neurological issues. Pending CRIS. Objective - Vital Signs Vital signs: Vital Signs Temp 98.2 F 12/31/23 08:00 Pulse 77 12/31/23 13:14 Resp 16 12/31/23 13:14 BP 127/71 12/31/23 13:14 Pulse Ox 97 12/31/23 13:14 FiO2 Intake & Output 12/30/23 12/31/23 12/31/23 18:59 06:59 18:59 Intake Total 128 138 0 Balance 128 138 0 Intake: IV 10 20 Invasive Line 3 10 20 Oral 118 118 0 Other: Voiding Method Toilet Toilet Toilet # Voids 3 3 0 # Bowel Movements 0 - Exam GENERAL: The patient is sitting in a recliner chair and is not in acute distress. NEUROLOGICAL: Higher mental function: The patient is awake, alert, oriented to self, place and time. Patient is following commands. No aphasia and no neglect. Cranial nerves: The pupils are round, equal and reactive to light and accommodation. Visual ocasio at times had some difficulty over the left lower quadrant bilaterally but at time normal throughout. Extraocular movement is intact no nystagmus is noted. Facial sensation is normal to touch throughout. The facial strength is normal throughout. Hearing is normal bilaterally to hand rub. Tongue is midline and moved [id number] without any difficulty. No dysarthria is noted. Shoulder shrug is normal bilaterally. Motor: The strength is 5 over 5 throughout. Normal tone and bulk. Cerebellum: Normal finger to nose bilaterally. Sensation: Sensation is normal to touch throughout. Reflexes (right/left): 2+ throughout. Plantars are downgoing bilaterally. some of the workup during his hospital visit consisted of: CBC with differential is unremarkable Hemoglobin A1c 6.2 BUN on presentation is 22 and the glucoses 113 otherwise rest is unremarkable lipid panel triglycerides 57, cholesterol is 117, LDLs 45 and HDL is 59. TSH: 0.315 and free T4: 1.91 CT of the head is reported as mild age-related atrophy. No acute intracranial process. Follow-up MRI can be performed as clinically indicated.I personally reviewed the CT and I agree there is no acute subacute stroke. 2D echo: Reduced LV systolic function ejection fraction 35%. Right ventricular enlargement with moderate pulmonary hypertension. Carotid duplex: No hemodynamically significant internal carotid artery stenosis on either side. CTA head and neck: Is reported as no significant abnormality. Routine EEG is normal. MRI Brain: small foci of acute cortical infarct greater than 6 hours in duration involving the right occipital. No midline shift or herniation. - Labs CBC & Chem 7: 12/28/23 14:20 12/28/23 14:20 Assessment and Plan Assessment: This is a 78-year-old gentleman who presents because of dizziness, visual disturbance and confusion that started this Wednesday and lasted for 10-20 minutes. Transient episode of visual disturbance with dizziness and confusion: Due to acute ischemic stroke over right occipital. No IV thrombolytic since outside window and symptoms improved. The risk of IV thrombolytic outweigh benefits. Newly diagnosed Pre-DM (HbA1c 6.2) Underlying history of hypertension Hypercholesteremia Remote MRI History of coronary artery disease status post stent Plan: Patient is resumed on his home medication of aspirin 81 mg. He was given aspirin 325 once in the ED. I started the patient on Plavix 75 mg in addition to his home aspirin. Recommend dual antiplatelets for 21 days then after that stop ASA but continue Plavix from neurological perspective. He is resumed on his home medication of Lipitor 80 mg daily at bedtime Will pursue with CRIS. Cardiology is consulted Continue neuro checks Cardiac monitoring. So far no a-fib or flutter on monitoring per nurse. Recommend 30 days event monitor. PT OT and CIRCULATION LIBRARIAN are consulted We'll defer the rest of the medical management to primary team For DVT prophylaxis the patient is on subcu heparin Upon discharge, recommend to follow-up with neurologist as outpatient within 1-2 weeks. The plan is discussed with patient and primary team. Time with Patient: Less than 30
[2023-12-31 16:24] VITALS: BP 106/66; PULSE 73
--- NOTE | 2023-12-31 22:04 | CONS ---
CONSULTATION CHIEF COMPLAINT: CVA. HISTORY OF PRESENT ILLNESS: This is a 78-year-old gentleman with history of coronary artery disease, status post prior angioplasty; COPD; hypertension and dyslipidemia; who presented to hospital following a visit to the urgent care center with symptoms suggestive of CVA. His symptoms started with symptoms of dizziness and feeling tired and fatigued. He also had dizziness and symptoms of not feeling well. He did not have any focal neurological deficits. He came to the ER and subsequently got admitted. He underwent extensive workup by the hospitalist and the neurologist who have advised him to undergo transesophageal echo. The patient's MRI suggested embolic stroke. An echocardiogram showed cardiomyopathy with an ejection fraction of 40%, had 2+ mitral regurgitation and pulmonary hypertension. We have been consulted to perform transesophageal echo and if necessary perform an event monitor. PAST MEDICAL HISTORY: Significant for coronary artery disease status post angioplasty, hypertension, dyslipidemia and COPD. MEDICATIONS: Medications at home included: 1. Lipitor. 2. Nebulizers. 3. Zestril. 4. Aldactone. 5. Toprol. 6. Synthroid. 7. Imdur. 8. Lasix. 9. Proscar. ALLERGIES: There are no known drug allergies. FAMILY HISTORY: Negative for premature coronary artery disease. SOCIAL HISTORY: Negative for current smoking, EtOH abuse or drug abuse. REVIEW OF SYSTEMS: HEENT: Unremarkable. CARDIAC: As described above. RESPIRATORY: Negative. GI: Negative. GENITOURINARY: Negative. ALLERGY/IMMUNOLOGY: Negative. SKIN: Negative. MUSCULOSKELETAL: Significant for arthritis. PSYCHOSOCIAL: Negative. DERM: Negative. CONSTITUTIONAL: Negative. ONCOLOGICAL: Negative. COUNTY HEALTH OFFICER: As described above. PHYSICAL EXAMINATION: GENERAL: Comfortable at rest. VITAL SIGNS: Stable. NECK: There is no jugular venous distention. Carotid upstroke is normal. There is no bruit. CHEST: Reveals good air entry bilaterally. HEART: Reveals first and second heart sounds and a systolic murmur at the apex. ABDOMEN: Soft. EXTREMITIES: Did not reveal any edema. Peripheral pulses are felt. IMAGING DATA: EKG shows sinus rhythm with first-degree AV block and evidence of prior anteroseptal myocardial infarction. A carotid duplex study did not reveal significant carotid stenosis. A 2D echo showed an ejection fraction of 35% to 40% with mild mitral and aortic regurgitation with moderate pulmonary hypertension. LABORATORY DATA: Show that the hemoglobin is 13.6. Troponins are negative. LDL cholesterol is 45. ASSESSMENT AND PLAN: 1. CVA. Rule out cardiac source of thromboembolic phenomenon. 2. Coronary artery disease, status post angioplasty. 3. Cardiomyopathy. PLAN: The patient will undergo CRIS by Dr. Jerome, his primary top tile decorator. ANDREA / LANDY: [id number] /
== END 2023-12-31 16:48 | disposition home or self-care (01) | DRG 65 ==
LOC: EC 13:26 → 3SCARD 19:00
PROVIDERS: ADMIT Internal Medicine; ATTEND Internal Medicine
PROC: B246ZZ4 Ultrasonography of Right and Left Heart, Transesophageal (ICD-10-PCS; principal; 2023-12-29)
PROC: 4A10X4Z Monitoring of Central Nervous Electrical Activity, External Approach (ICD-10-PCS; 2023-12-30)
DX: I63.40 Cerebral infarction due to embolism of unspecified cerebral artery (principal); I42.8 Other cardiomyopathies; I50.22 Chronic systolic (congestive) heart failure; I11.0 Hypertensive heart disease with heart failure; H53.8 Other visual disturbances; R73.03 Prediabetes; E78.00 Pure hypercholesterolemia, unspecified; J44.9 Chronic obstructive pulmonary disease, unspecified; I25.10 Atherosclerotic heart disease of native coronary artery without angina pectoris; Z79.890 Hormone replacement therapy; N40.0 Benign prostatic hyperplasia without lower urinary tract symptoms; I25.2 Old myocardial infarction; I08.3 Combined rheumatic disorders of mitral, aortic and tricuspid valves; E03.9 Hypothyroidism, unspecified; I27.20 Pulmonary hypertension, unspecified; I44.0 Atrioventricular block, first degree; Z79.02 Long term (current) use of antithrombotics/antiplatelets; Z79.82 Long term (current) use of aspirin; Z79.899 Other long term (current) drug therapy; Z87.442 Personal history of urinary calculi; Z98.41 Cataract extraction status, right eye; Z87.19 Personal history of other diseases of the digestive system; Z95.5 Presence of coronary angioplasty implant and graft; Z87.891 Personal history of nicotine dependence; Z96.649 Presence of unspecified artificial hip joint
CPT/HCPCS: 36415; 70450; 70496; 70498; 70551; 80053; 80061; 83036; 83735; 83880; 84439; 84443; 84484; 85025; 93005; 93270; 93306; 93312; 93320; 93325; 93880; 94640; 95816; 96360; 96361; 99285

== ENCOUNTER → 2024-03-27 | Outpatient (CLI) | payer MEDICARE ==
--- NOTE | 2024-03-27 16:45 | CT ---
EXAMINATION TYPE: CT abdomen pelvis wo con CT DLP: 1140 mGycm, Automated exposure control for dose reduction was used. DATE OF EXAM: 03/27/2024 1:13 PM COMPARISON: CT abdomen pelvis 09/18/2018 CLINICAL INDICATION:Male, 78 years old with history of R31.9 HEMATURIA; hematuria, pain TECHNIQUE: Axial CT abdomen pelvis wo con;Sagittal and coronal reformats were created on a separate workstation. Contrast used: mL of , (none if empty) Oral contrast used: without Oral Contrast (none if empty) FINDINGS: LOWER CHEST: Lung bases are clear. No pleural effusions. ABDOMEN LIVER: Unremarkable GALLBLADDER AND BILE DUCTS: Unremarkable. PANCREAS: Unremarkable. SPLEEN: Unremarkable. ADRENAL GLANDS: Unremarkable. KIDNEYS AND URETERS: No evidence of hydronephrosis or renal calculus. No obvious renal mass. 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 The identified i s mild left renal atrophy more precisely cortical thinning not significantly changed since the prior study of 09/18/2018 PELVIS BLADDER: Unremarkable, but partially obscured by streak metal artifact long total right hip arthropla sty REPRODUCTIVE: Unremarkable. ABDOMEN & PELVIS STOMACH AND BOWEL: No evidence of bowel obstruction. PERITONEUM/RETROPERITONEUM: No evidence of pneumoperitoneum or free fluid. VASCULATURE: No evidence of aortic aneurysm. MUSCULOSKELETAL: No acute osseous abnormalities LYMPH NODES: No gross evidence for lymphadenopathy. SOFT TISSUE/ABDOMINAL WALL: Unremarkable IMPRESSION: 1. Limited examination of the urinary bladder due to metal artifact from right hip aren't plasty. Gr ossly unremarkable urinary bladder. 2. Stable appearance of kidneys compared to prior exam of 09/18/2018. No hydroureter and no nephrolit hiasis. No solid renal mass identified.
== END | disposition home or self-care (01) ==
LOC: RADCTMAIN 12:55
PROVIDERS: ATTEND Internal Medicine
DX: R31.9 Hematuria, unspecified (principal)
CPT/HCPCS: 74176

== ENCOUNTER → 2024-06-15 | Outpatient (CLI) | payer MEDICARE ==
[2024-06-15 13:52] LABS: African American GFR (CKD) >90 (>60 ml/min/1.73 sqM); Blood Urea Nitrogen 16 mg/dL (9-20); Non-African American GFR(CKD) 81 (>60 ml/min/1.73 sqM)
--- NOTE | 2024-06-15 16:57 | CT ---
EXAMINATION TYPE: CT urogram wo/w con CT DLP: 3496.30 mGycm, Automated exposure control for dose reduction was used. DATE OF EXAM: 06/15/2024 2:44 PM COMPARISON: CT abdomen pelvis 03/27/2024, 09/18/2018 CLINICAL INDICATION:Male, 79 years old with history of D49.4 BLADDER MASS; PHH, Bladder mass TECHNIQUE: Urogram of the abdomen and pelvis was performed before and after the administration of 100 cc of IV c ontrast Isovue 300 contrast. Delayed imaging was performed. Coronal and sagittal reformats were perfo rmed. One or more CT dose reduction strategies were utilized during this examination. 2D and 3D recon structions are performed to assist visualization of the urinary tract on a separate workstation. FINDINGS: GENITOURINARY: RIGHT KIDNEY AND URETER: No calculi. No hydronephrosis or hydroureter. No renal mass or other lesions . No urothelial lesions: no filling defect, dilation, stricture or wall thickening. LEFT KIDNEY AND URETER: Nonobstructive left renal 4 mm calculus. 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 Cortical thinning identified. No hydronephrosis or hydroure ter. No renal mass or other lesions. No urothelial lesions: no filling defect, dilation, stricture or wall thickening. URINARY BLADDER: Limited visualization secondary to streak artifact from right hip prosthesis. Modera tely well distended. No calculi. There is a 1.9 x 2.9 cm filling defect along the posterior left aspe ct of the urinary bladder medial to the ureterovesical junction (series 18, image 71 and series 23, i mage 104). REPRODUCTIVE: Unremarkable. ABDOMEN LIVER: Unremarkable. GALLBLADDER AND BILE DUCTS: Contracted gallbladder. No biliary ductal dilatation. PANCREAS: Unremarkable. SPLEEN: Unremarkable. ADRENAL GLANDS: Unremarkable. STOMACH AND BOWEL: Scattered colonic diverticulosis without evidence for acute diverticulosis. The ap pendix is within normal limits. No evidence of bowel obstruction. PERITONEUM: No evidence of pneumoperitoneum, free fluid, or adenopathy. VASCULATURE: Moderate atherosclerotic calcifications are present throughout the abdominal aorta and i ts branches. No abdominal aortic aneurysm. MUSCULOSKELETAL: Postsurgical changes from right total hip arthroplasty. 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 Degenerative changes of the bilateral SI joints with anterior bony bridging. Multilevel d egenerative disease with prominent anterior osteophyte at L4-L5. SOFT TISSUE/ABDOMINAL WALL: Unremarkable. LOWER CHEST: Stable lateral right lower lobe pleural-based 6 mm pulmonary nodule dating back to 2015 considered benign. Linear scarring within the right lower lung laterally. Cardiomegaly. Trace pericar dial effusion. IMPRESSION: 1. Posterior left urinary bladder 2.9 cm mass just medial to the left ureterovesical junction. Raise s concern for malignancy versus intravesical ureterocele. Evaluation is limited due to streak artifac t from hip prosthesis. Direct visualization is recommended. 2. 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 3. Nonobstructive left renal formalin or calculus. [facility], , 06/15/2024 4:55 PM
== END | disposition home or self-care (01) ==
LOC: RADCTMAIN 13:07
PROVIDERS: ATTEND Urology
DX: D49.4 Neoplasm of unspecified behavior of bladder
CPT/HCPCS: 36415; 74178; 74400; 82565; 84520

== ENCOUNTER → 2025-03-23 | Day surgery (SDC) | payer MEDICARE ==
[2025-03-22 09:18] VITALS: BMI 33.0
[~2025-03-23] MED LIST changes: -ASPIRIN 325 MG TAB PO ONE; -ATORVASTATIN 80 MG TAB PO ONE; +ATORVASTATIN 80 MG TAB PO STA; +HEPARIN SODIUM,PORCINE (1 ML) 2,500 UNIT in SODIUM CHLORIDE 0.9% 250 ML IRRIGATION PRN; -HEPARIN SODIUM,PORCINE 2,500 UNIT in SODIUM CHLORIDE 0.9% 250 ML IRRIGATION PRN; +RX INFO: IV CONTRAST WAS GIVEN 1 EACH MISC MISCELLANE PRN; +SODIUM CHLORIDE 0.9% 1,000 ML IV SCH; -SODIUM CHLORIDE 0.9% 1,000 ML in EMPTY BAG 1 BAG IV ONE
[2025-03-23] MEDS: IV FLUID CONTINUATION 1,000 ML IV ONE (09:45)
[2025-03-23] MEDS: ASPIRIN 325 MG TAB PO STA (09:55)
[2025-03-23] MEDS: SODIUM CHLORIDE 0.9% 1,000 ML in EMPTY BAG 1 BAG IV SCH (09:57)
[2025-03-23 10:17] LABS: Basophils # (A) 0.03 10*3/uL (0.00-0.10); Basophils % (A) 0.4 %; Eosinophils # (A) 0.19 10*3/uL (0.04-0.35); Eosinophils % (A) 2.5 %; HCT 41.1 % (39.6-50.0); HGB 14.2 g/dL (13.0-17.0); Lymphocytes # (A) 1.23 10*3/uL (0.90-5.00); Lymphocytes % (A) 16.1 %; MCH 31.1 pg (27.0-32.0); MCHC 34.5 g/dL (32.0-37.0); MCV 89.9 fL (80.0-97.0); Monocytes # (A) 0.86 10*3/uL (0.20-1.00); Monocytes % (A) 11.2 %; Neutrophils # (A) 5.33 10*3/uL (1.80-7.70); Neutrophils % (A) 69.5 %; Platelet Count 204 10*3/uL (140-440); RBC 4.57 10*6/uL (4.40-5.60); RDW 12.5 % (11.5-14.5); WBC 7.66 10*3/uL (4.50-10.00)
[2025-03-23 10:39] LABS: African American GFR (CKD) >90 (>60 ml/min/1.73 sqM); Anion Gap 8 mmol/L; Blood Urea Nitrogen 16 mg/dL (9-20); Calcium 9.6 mg/dL (8.4-10.2); Carbon Dioxide 26 mmol/L (22-30); Chloride 106 mmol/L (98-107); Glucose 123 mg/dL (74-99); Non-African American GFR(CKD) 84 (>60 ml/min/1.73 sqM); Potassium 4.1 mmol/L (3.5-5.1); Sodium 140 mmol/L (137-145)
[2025-03-23] MEDS: MIDAZOLAM 2 MG/2 ML VIAL IVP ONE (13:17)
[2025-03-23] MEDS: fentaNYL (PF) 50 MCG/1 ML VIAL IVP ONE (13:17)
[2025-03-23] MEDS: LIDOCAINE 2% (PF) 20 MG/ML 5 ML VIAL SQ ONE (13:17)
[2025-03-23] MEDS: IOPAMIDOL-370 100ML BTL INJ ONE (13:33)
--- NOTE | 2025-03-23 13:42 | P.PCN ---
Date of Procedure: 03/23/25 Operative Findings: CARDIAC CATHETERIZATION PERFORMING PHYSICIAN: Gavin Jerome MD, RPVI PROCEDURE PERFORMED: 1. Selective right and left coronary angiogram 2. Left heart catheterization 3. Ultrasound-guided access of the right common femoral artery and selective right common femoral artery angiogram INDICATION: Symptomatic 79-year-old gentleman with symptoms of chest discomfort concerning for angina. He is known to have CAD as well as cardiomyopathy COMPLICATION: None APPROACH: Right common femoral artery LEVEL OF SEDATION: Moderate with sedation in length of 12 minutes PROCEDURE DESCRIPTION: After obtaining an informed consent, the patient was brought to cardiac labor/excavator. Local anesthesia was performed using lidocaine subcutaneously. The right common femoral artery was cannulated using Seldinger technique, the guidewire passed easily, following that we advanced a 6 [place] sheath dilator assembly, the wire and dilator were removed and sheath was flushed. Selective right and left coronary angiogram using a 6-[place]mani JR4 and JL catheters. Following that we did left heart catheterization using 6-[place]mani JR4 catheter The procedure was completed there was no complication. SELECTIVE CORONARY ANGIOGRAM: The right coronary artery: Moderate caliber vessel with no evidence of high-grade stenosis Left main: Has mild disease appears to be in the range of 20 to 30% The left circumflex: Large caliber vessel with mild to moderate disease involving the distal left circumflex The left anterior descending artery: The LAD stent appears to be patent with no evidence of high-grade stenosis HEMODYNAMICS: The LVEDP was 18 mmHg with no significant gradient across aortic valve CONCLUSION: 1. Mild disease as described above involving the ostial left main and distal left circumflex and patent stent in the LAD 2. Elevated left-sided filling pressure POSTPROCEDURE MANAGEMENT: Medical treatment
[2025-03-23 18:22] VITALS: RESP 16
[2025-03-23 18:25] VITALS: BP 91/50; PULSE 50
== END ==
LOC: CATHCVL 09:34
PROVIDERS: ATTEND Internal Medicine Interventional Cardiology
DX: I25.10 Atherosclerotic heart disease of native coronary artery without angina pectoris (principal); I42.8 Other cardiomyopathies; E78.5 Hyperlipidemia, unspecified; I10 Essential (primary) hypertension; Z87.891 Personal history of nicotine dependence; Z79.02 Long term (current) use of antithrombotics/antiplatelets; Z79.899 Other long term (current) drug therapy; Z95.5 Presence of coronary angioplasty implant and graft
CPT/HCPCS: 93458; 80048; 85025; 99152; J2250; Q9967; J2003; J3010